=== PATIENT | male | born 1960 | race Caucasian/White ===

== ENCOUNTER 2017-07-20 16:39 | Emergency (ER) | payer MEDICAID ==
[~2017-07-20] VITALS: Ht 172.7 cm; Wt 141.4 kg
[2017-07-20 16:39] VITALS: BP 155/89
== END 2017-07-20 16:50 | disposition left against medical advice (07) ==
LOC: M ED 16:39
DX: S99.919A Unspecified injury of unspecified ankle, initial encounter (principal); X58.XXXA Exposure to other specified factors, initial encounter; Y92.9 Unspecified place or not applicable; Y93.9 Activity, unspecified; Y99.9 Unspecified external cause status; Z53.21 Procedure and treatment not carried out due to patient leaving prior to being seen by health care provider

== ENCOUNTER → 2017-10-12 | Outpatient (CLI) | payer MEDICAID ==
[2017-10-12 14:54] LABS: HEMOGLOBIN 15.6 g/dl (14.0-18.0)
== END ==
LOC: M CARPUL 13:52
DX: J43.9 Emphysema, unspecified (principal)
CPT/HCPCS: 94060

== ENCOUNTER → 2018-01-26 | Outpatient (CLI) | payer MEDICAID ==
[2018-01-26 15:25] LABS: BASO # 0.1 10^3/uL (0.0-0.2); BASO % 0.7 % (0.0-1.0); EOS # 0.2 10^3/uL (0.0-0.50); EOS % 2.4 % (0.0-3.0); HEMATOCRIT 49.8 % (42.0-52.0); HEMOGLOBIN 16.3 g/dl (13.5-17.5); IMMATURE GRANULOCYTE # 0.1 10^3/uL (0-0); IMMATURE GRANULOCYTE % 0.7 % (0-3.0); LYMPH % 27.1 % (24.0-44.0); MEAN CORPUSCULAR HEMOGLOBIN 30.3 pg (27.0-33.0); MEAN CORPUSCULAR HGB CONC 32.7 g/dl (32.0-36.5); MEAN CORPUSCULAR VOLUME 92.6 fl (80.0-96.0); MONO # 0.4 10^3/uL (0.0-0.8); MONO % 6.1 % (0.0-5.0); NEUTROPHILS # 4.6 10^3/uL (1.8-7.7); PLATELET COUNT, AUTOMATED 283 10^3/uL (150-450); RED BLOOD COUNT 5.38 10^6/uL (4.30-6.10); RED CELL DISTRIBUTION WIDTH 15.4 % (11.5-14.5); WHITE BLOOD COUNT 7.2 10^3/uL (4.0-10.0)
[2018-01-26 15:30] LABS: APPEARANCE, URINE CLEAR (CLEAR); BACTERIA, URINE AUTO NEGATIVE (NEGATIVE); BILIRUBIN, URINE AUTO NEGATIVE (NEGATIVE); BLOOD, URINE BLOOD NEGATIVE (NEGATIVE); COLOR, URINE STRAW (YELLOW); GLUCOSE, URINE (UA) AUTO NEGATIVE (NEGATIVE); KETONE, URINE AUTO NEGATIVE (NEGATIVE); LEUKOCYTE ESTERASE, URINE AUTO 2+ (NEGATIVE); MUCUS, URINE SMALL (NEGATIVE); NITRITE, URINE AUTO NEGATIVE (NEGATIVE); PROTEIN, URINE AUTO NEGATIVE (NEGATIVE); RBC, URINE AUTO 1 /HPF (0-3); SPECIFIC GRAVITY URINE AUTO 1.004 (1.002-1.035); SQUAMOUS EPITHELIAL CELL UR AU 0 /HPF (0-6); UROBILINOGEN, URINE AUTO 0.2 mg/dL (0.0-2.0); WBC, URINE AUTO 7 /HPF (0-3)
[2018-01-26 16:04] LABS: ESTIMATED AVERAGE GLUCOSE 128 MG/DL (60-110); HEMOGLOBIN A1c 6.1 %
[2018-01-26 16:05] LABS: TOTAL 25(OH) VITAMIN D 14.4 NG/ML (30.0-100.0)
[2018-01-26 16:08] LABS: ALBUMIN 3.4 GM/DL (3.2-5.2); ALBUMIN/GLOBULIN RATIO 0.94 (1.00-1.93); ALKALINE PHOSPHATASE 97 U/L (45-117); ALT/SGPT 21 U/L (12-78); ANION GAP 6 MEQ/L (8-16); AST/SGOT 15 U/L (7-37); BILIRUBIN,TOTAL 0.4 MG/DL (0.2-1.0); BLOOD UREA NITROGEN 20 MG/DL (7-18); CALCIUM LEVEL 9.1 MG/DL (8.5-10.1); CARBON DIOXIDE LEVEL 33 MEQ/L (21-32); CHLORIDE LEVEL 98 MEQ/L (98-107); CHOLESTEROL LEVEL 146 MG/DL (<200); CHOLESTEROL RISK RATIO 2.607 (<5); CREATININE FOR GFR 1.24 MG/DL (0.70-1.30); FREE T4 1.12 NG/DL (0.76-1.46); GLOMERULAR FILTRATION RATE > 60.0 (>56); GLUCOSE, FASTING 101 MG/DL (70-100); HDL CHOLESTEROL 56 MG/DL (>40); LDL CHOLESTEROL 48.6 MG/DL (<100); NON-HDL-C 90 MG/DL; POTASSIUM SERUM 4.8 MEQ/L (3.5-5.1); SODIUM LEVEL 137 MEQ/L (136-145); TRIGLYCERIDES LEVEL 207 MG/DL (<150)
== END ==
LOC: M LAB 13:56
DX: Z71.2 Person consulting for explanation of examination or test findings (principal)
CPT/HCPCS: 84443

== ENCOUNTER 2018-06-27 21:32 | Emergency (ER) | payer MEDICAID ==
[2018-06-27 23:08] LABS: BASO % 0.3 % (0.0-1.0); EOS # 0.2 10^3/uL (0.0-0.50); EOS % 1.6 % (0.0-3.0); HEMATOCRIT 47.6 % (42.0-52.0); HEMOGLOBIN 15.5 g/dl (13.5-17.5); IMMATURE GRANULOCYTE % 0.7 % (0-3.0); LYMPH # 2.3 10^3/uL (1.5-4.5); LYMPH % 23.2 % (24.0-44.0); MEAN CORPUSCULAR HEMOGLOBIN 30.9 pg (27.0-33.0); MEAN CORPUSCULAR HGB CONC 32.6 g/dl (32.0-36.5); MEAN CORPUSCULAR VOLUME 94.8 fl (80.0-96.0); MONO # 0.9 10^3/uL (0.0-0.8); MONO % 8.4 % (0.0-5.0); NEUTROPHILS # 6.6 10^3/uL (1.8-7.7); NEUTROPHILS % 65.8 % (36.0-66.0); PLATELET COUNT, AUTOMATED 213 10^3/uL (150-450); RED BLOOD COUNT 5.02 10^6/uL (4.30-6.10); RED CELL DISTRIBUTION WIDTH 14.7 % (11.5-14.5); WHITE BLOOD COUNT 10.1 10^3/uL (4.0-10.0)
[2018-06-27 23:11] LABS: INR 0.94; PROTHROMBIN TIME 12.6 SECONDS (12.1-14.4)
[2018-06-27] MEDS: NS 1,000 ML IV (23:11)
[2018-06-27 23:12] LABS: PARTIAL THROMBOPLASTIN TIME 33.1 SECONDS (25.4-37.6)
[2018-06-27] MEDS: ONDANSETRON 4MG/2ML VIAL (J2405) IV (23:12)
[2018-06-27] MEDS: MORPHINE 4 MG/ML 1ML VIAL/SYRINGE (J2270) IV (23:13)
[2018-06-27 23:27] LABS: ALBUMIN/GLOBULIN RATIO 0.75 (1.00-1.93); ALKALINE PHOSPHATASE 89 U/L (45-117); ALT/SGPT 22 U/L (12-78); ANION GAP 5 MEQ/L (8-16); AST/SGOT 21 U/L (7-37); BILIRUBIN,DIRECT < 0.1 MG/DL (0.0-0.2); BILIRUBIN,TOTAL 0.6 MG/DL (0.2-1.0); BLOOD UREA NITROGEN 10 MG/DL (7-18); CALCIUM LEVEL 9.2 MG/DL (8.5-10.1); CARBON DIOXIDE LEVEL 36 MEQ/L (21-32); CHLORIDE LEVEL 100 MEQ/L (98-107); CREATININE FOR GFR 1.08 MG/DL (0.70-1.30); GLOMERULAR FILTRATION RATE > 60.0 (>56); GLUCOSE, FASTING 99 MG/DL (70-100); LIPASE 64 U/L (73-393); POTASSIUM SERUM 4.1 MEQ/L (3.5-5.1); SODIUM LEVEL 141 MEQ/L (136-145)
[2018-06-27 23:42] LABS: LACTIC ACID SEPSIS PROTOCOL 0.8 MMOL/L (0.4-2.0)
[2018-06-28] MEDS: GASTROGRAFIN SOLUTION 30ML PO ×2 (00:05→00:35)
[2018-06-28] MEDS ORDERED: ISOVUE-370 76% 100ML VIAL (Q9967) As Ordered (01:20)
== END 2018-06-28 07:55 | disposition home or self-care (01) ==
LOC: M ED 06-28 07:55
DX: K80.01 Calculus of gallbladder with acute cholecystitis with obstruction (principal); E66.9 Obesity, unspecified; J44.9 Chronic obstructive pulmonary disease, unspecified; G89.29 Other chronic pain; M54.9 Dorsalgia, unspecified; I10 Essential (primary) hypertension; Z72.0 Tobacco use; Z79.899 Other long term (current) drug therapy; Z88.0 Allergy status to penicillin
CPT/HCPCS: J2270

== ENCOUNTER → 2018-09-13 | Outpatient (CLI) | payer MEDICAID ==
[~2018-09-13] MED LIST: ALEV220C2 PO; ALEV220T26 PO; BREO1INH PO; CIPR-249 PO; FLAG500T PO; FURO20TA2 PO; GABA-1171 PO; GABA-845 PO; INCR1INH INH; IPRA0.00 INH; LISI-538 PO; METO1TAB7 PO; NICO21DI31 TD; NORCOTAB PO; PROAAER10 INH
--- NOTE | 2018-09-13 16:32 | REP ---
Low-dose lung cancer screening CT study of the chest without contrast: History: Nicotine dependency. Lung cancer screening. Comparison chest CT study is from July 16, 2008. CT findings: The lung valdez are free of infiltrate, atelectasis, nodule, or mass. There is some vascular calcification noted. Impression: Lung RADS category one negative findings. Repeat screening exam suggested in 1 year. Electronically Signed by Narendra Parada MD 09/13/2018 04:22 P
== END ==
LOC: M RAD 14:42
PROVIDERS: ATTEND Physician Assistant
DX: Z12.2 Encounter for screening for malignant neoplasm of respiratory organs (principal); F17.218 Nicotine dependence, cigarettes, with other nicotine-induced disorders

== ENCOUNTER → 2018-09-21 | Outpatient (CLI) | payer MEDICAID ==
[2018-09-21 11:03] LABS: HEMATOCRIT 48.3 % (42.0-52.0); HEMOGLOBIN 15.5 g/dl (13.5-17.5); MEAN CORPUSCULAR HGB CONC 32.1 g/dl (32.0-36.5); MEAN CORPUSCULAR VOLUME 99.8 fl (80.0-96.0); PLATELET COUNT, AUTOMATED 226 10^3/uL (150-450); RED BLOOD COUNT 4.84 10^6/uL (4.30-6.10); WHITE BLOOD COUNT 8.3 10^3/uL (4.0-10.0)
[2018-09-21 11:39] LABS: ALBUMIN 3.1 GM/DL (3.2-5.2); ALT/SGPT 24 U/L (12-78); BILIRUBIN,TOTAL 0.2 MG/DL (0.2-1.0); BLOOD UREA NITROGEN 22 MG/DL (7-18); CALCIUM LEVEL 8.9 MG/DL (8.5-10.1); CARBON DIOXIDE LEVEL 34 MEQ/L (21-32); CHLORIDE LEVEL 102 MEQ/L (98-107); CHOLESTEROL LEVEL 179 MG/DL (<200); CHOLESTEROL RISK RATIO 3.442 (<5); CORTISOL AM 9.9 UG/DL (4.3-22.4); CREATININE FOR GFR 1.01 MG/DL (0.70-1.30); GLOMERULAR FILTRATION RATE > 60.0 (>56); GLUCOSE, FASTING 108 MG/DL (70-100); HDL CHOLESTEROL 52 MG/DL (>40); LDL CHOLESTEROL 91 MG/DL (<100); NON-HDL-C 127 MG/DL; NT-PRO BNP 150 PG/ML (<125); POTASSIUM SERUM 5.4 MEQ/L (3.5-5.1); SODIUM LEVEL 142 MEQ/L (136-145); TOTAL PROTEIN 6.6 GM/DL (6.4-8.2); TRIGLYCERIDES LEVEL 179 MG/DL (<150)
== END ==
LOC: M LAB 10:05
PROVIDERS: ATTEND Internal Medicine
DX: R63.5 Abnormal weight gain (principal)

== ENCOUNTER → 2018-10-11 | Outpatient (CLI) | payer MEDICAID ==
[2018-10-11 13:53] LABS: BLOOD UREA NITROGEN 21 MG/DL (7-18); CALCIUM LEVEL 9.1 MG/DL (8.5-10.1); CARBON DIOXIDE LEVEL 34 MEQ/L (21-32); CHLORIDE LEVEL 99 MEQ/L (98-107); CREATININE FOR GFR 1.15 MG/DL (0.70-1.30); GLOMERULAR FILTRATION RATE > 60.0 (>56); GLUCOSE, FASTING 117 MG/DL (70-100); POTASSIUM SERUM 4.8 MEQ/L (3.5-5.1); SODIUM LEVEL 137 MEQ/L (136-145)
== END ==
LOC: M LAB 12:45
PROVIDERS: ATTEND Internal Medicine
DX: E87.5 Hyperkalemia (principal); I10 Essential (primary) hypertension

== ENCOUNTER → 2018-10-12 | Outpatient (CLI) | payer MEDICAID ==
[~2018-10-12] MED LIST changes: +GASTROGRAFIN SOLUTION 30ML (Q9963) As Ordered ONE; +ISOVUE-370 76% 100ML VIAL (Q9967) As Ordered ONE
--- NOTE | 2018-10-12 18:30 | REP ---
CT ABDOMEN AND PELVIS WITH IV AND ORAL CONTRAST: 10/12/2018. Clinical history: Abnormal weight gain. Technique: Gastrografin 10 ml in 290 ml flavored water for two doses per our bowel contrast protocol and bolus of 100 ml Isovue 370, scanning through the abdomen pelvis with both coronal and sagittal reconstructions. Comparison: 06/28/2018 CT and gallbladder ultrasound. Findings: CT abdomen: Lung bases show minor dependent atelectatic changes in the inferior segment of the lingula and medial segment of the right middle lobe. They are otherwise clear. Heart not enlarged. No pericardial thickening or effusion. There is no gross hepatomegaly although the left hepatic lobe is mildly enlarged. There is no splenomegaly or focal splenic lesion. I see no biliary dilatation or ascites. No cyst or solid hepatic mass. The gallbladder again shows a 3 mm stone in the region of the neck, unchanged. Pancreas without mass or ductal dilatation. No hiatal hernia. Stomach not abnormally distended. Abdominal portion of the colon is seen without colitis, diverticulitis, stricture or mass. The small bowel loops contrast and fluid-filled but not abnormally dilated. They show no air-fluid levels, wall thickening or inflammatory changes adjacent. The aorta has atherosclerotic calcifications without aneurysm. There is no periaortic or retroperitoneal pathologic sized lymphadenopathy. There is a stable solid lesion in the left adrenal gland up to 2.8 cm and unchanged dating back to a CT from 05/25/2012. This would be consistent with a benign finding most likely a benign adrenal adenoma. Exophytic cyst lower pole right kidney, unchanged. There are a few other cortical cysts evident. I see no stone, hydronephrosis, solid mass or perinephric fluid. No hydroureter or ureteral stone on either side. Bladder without wall thickening, mass or stone. Bones unchanged with degenerative disc changes throughout the thoracic and lumbar endplates and no compression deformity or destructive lesion. Facets with degenerative changes L5, S1. No spondylolysis. Visualized lower ribs grossly intact. Diastases of the rectus muscles again seen. No umbilical hernia. There is abundant and diffuse mesenteric and retroperitoneal fat, similar to previous studies, perhaps increased deposition since the prior exam. CT pelvis: The bony sacrum, pelvis, hips and iliac vessels with minor degenerative changes and no fracture or destructive lesion. Distal ureters without dilatation or stone. Abdominal and pelvic portions of colon without signs of colitis or diverticulitis, no stricture or mass. Small bowel loops deep pelvis unremarkable. Appendix and cecum were unremarkable as was the ileocecal valve. There is no ventral or inguinal hernia in the pelvis. No pelvic free fluid. Impression: 1. Some mild enlargement of the left hepatic lobe is noted, but no focal hepatic mass, biliary dilatation or adjacent ascites. No splenomegaly 2. Nearly 3 cm stone appears in the neck of the gallbladder, unchanged. 3. Degenerative disc changes with endplate spurs and some facet arthropathy lower lumbar spine. No acute bony finding. 4. Left adrenal 2.8 cm nodule unchanged dating back to 2011, a stable benign finding. 5. Tiny cysts in the kidneys without hydronephrosis, mass or stone. There is no other significant or acute finding. The small bowel loops are without dilatation. There is no bowel herniation in the ventral abdominal wall or inguinal region. There is some diastasis of the rectus muscles as before. 6. Extensive deposition of mesenteric and retroperitoneal fat appears to have increased. Electronically Signed by Castro Salas MD 10/13/2018 12:34 P
== END ==
LOC: M RAD 14:59
PROVIDERS: ATTEND Internal Medicine
DX: R63.5 Abnormal weight gain (principal)
CPT/HCPCS: 74177; Q9963; Q9967

== ENCOUNTER 2018-10-20 11:09 | Inpatient (IN) | payer MEDICAID ==
[~2018-10-20] VITALS: Ht 172.7 cm; Wt 154.6 kg
[2018-10-20] MEDS: MULTIVITAMINS/MINERALS THERAP 1 TAB PO SCH (09:00)
[2018-10-20] MEDS: FUROSEMIDE 20 MG TAB PO SCH (09:00)
[2018-10-20] MEDS: amLODIPine 10 MG TAB PO SCH (09:00)
[2018-10-20] MEDS: FOLIC ACID 1 MG TAB PO SCH (09:00)
[~2018-10-20 11:09] MED LIST changes: -GASTROGRAFIN SOLUTION 30ML (Q9963) As Ordered ONE; -ISOVUE-370 76% 100ML VIAL (Q9967) As Ordered ONE
--- NOTE | 2018-10-20 12:27 | REP ---
RIGHT LOWER EXTREMITY DOPPLER VENOUS ULTRASOUND: 10/20/2018. Comparison: None. Clinical history: Swelling and pain of the right lower extremity, status post a fall. Technique: The deep venous system of the right lower extremity is evaluated with sheets scale imaging, compression ultrasound, color imaging and duplex Doppler interrogation. Examination from the groin through the popliteal fossa into the proximal calf. Findings: There is full compressibility from the common femoral vein in the inguinal region through the popliteal vein. Color imaging confirms patency throughout the course of the deep venous system. There is respiratory variation and augmented flow at all levels. There is a complex Fishman's cyst in the popliteal fossa is 6.2 x 2.6 x 3.1 cm. Impression: 1. No Doppler venous ultrasound evidence of DVT in the right lower extremity. 10/20/2018. 2. Complex Fishman's cyst popliteal fossa, 6.2 x 3.1 x 2.6 cm. Electronically Signed by Castro Salas MD 10/20/2018 12:19 P
[2018-10-20 12:49] LABS: BASO % 0.5 % (0.0-1.0); EOS # 0.2 10^3/uL (0.0-0.50); EOS % 2.2 % (0.0-3.0); HEMOGLOBIN 15.9 g/dl (13.5-17.5); LYMPH # 1.9 10^3/uL (1.5-4.5); LYMPH % 23.6 % (24.0-44.0); MEAN CORPUSCULAR HEMOGLOBIN 31.6 pg (27.0-33.0); MEAN CORPUSCULAR HGB CONC 31.8 g/dl (32.0-36.5); MEAN CORPUSCULAR VOLUME 99.4 fl (80.0-96.0); MONO # 0.8 10^3/uL (0.0-0.8); MONO % 9.7 % (0.0-5.0); PLATELET COUNT, AUTOMATED 221 10^3/uL (150-450); RED BLOOD COUNT 5.03 10^6/uL (4.30-6.10); WHITE BLOOD COUNT 8.1 10^3/uL (4.0-10.0)
[2018-10-20 13:01] LABS: INR 0.88
[2018-10-20 13:04] LABS: D-DIMER QUANT 948.07 ng/ml (<500)
[2018-10-20 13:20] LABS: ERYTHROCYTE SEDIMENTATION RATE 3 mm/hr (0-20)
[2018-10-20 13:26] LABS: ALBUMIN 3.3 GM/DL (3.2-5.2); ALT/SGPT 27 U/L (12-78); BILIRUBIN,DIRECT 0.1 MG/DL (0.0-0.2); BILIRUBIN,TOTAL 0.4 MG/DL (0.2-1.0); BLOOD UREA NITROGEN 21 MG/DL (7-18); C REACTIVE PROTEIN QUANTITATIV 4.02 MG/DL (0.00-0.30); CALCIUM LEVEL 8.9 MG/DL (8.5-10.1); CARBON DIOXIDE LEVEL 33 MEQ/L (21-32); CHLORIDE LEVEL 99 MEQ/L (98-107); CREATININE FOR GFR 1.08 MG/DL (0.70-1.30); ETHYL ALCOHOL (ETHANOL) < 0.003 % (0.000-0.010); GLOMERULAR FILTRATION RATE > 60.0 (>56); GLUCOSE, FASTING 95 MG/DL (70-100); NT-PRO BNP 140 PG/ML (<125); POTASSIUM SERUM 4.7 MEQ/L (3.5-5.1); SODIUM LEVEL 136 MEQ/L (136-145); TOTAL PROTEIN 7.2 GM/DL (6.4-8.2); TROPONIN I < 0.02 NG/ML (< 0.10)
[2018-10-20 13:34] LABS: AMPHETAMINES LEVEL URINE NEGATIVE (NEGATIVE); BARBITURATES URINE NEGATIVE (NEGATIVE); BENZODIAZEPINES URINE NEGATIVE (NEGATIVE); CANNABINOIDS URINE NEGATIVE (NEGATIVE); COCAINE METABOLITE URINE NEGATIVE (NEGATIVE); METHADONE URINE NEGATIVE (NEGATIVE); OPIATES URINE NEGATIVE (NEGATIVE); PHENCYCLIDINE URINE NEGATIVE (NEGATIVE)
--- NOTE | 2018-10-20 14:01 | REP ---
CHEST PA AND LATERAL: 10/20/2018. COMPARISON: Lung windows from CT abdomen 10/12/2018, PA chest 06/27/2018, chest x-ray 08/19/2012. CLINICAL HISTORY: Dyspnea. FINDINGS: The two views show the lung valdez well inflated. Chest wall tissues superimposed over the lower lung zones, somewhat limiting frontal evaluation. There is no dense consolidation, pleural effusion, lateral pleural thickening, or apical scarring. No pneumothorax. No parenchymal mass or nodule. No visible hiatal hernia. The aorta and airway are intact. There is no widening of the mediastinum. There is no vascular redistribution or pulmonary edema. IMPRESSION: 1. No gross cardiomegaly, edema, effusion, or definite infiltrate. Airway, mediastinal contours, and aorta unremarkable. Electronically Signed by Castro Salas MD 10/20/2018 07:51 P
[2018-10-20] MEDS ORDERED: ISOVUE-370 76% 100ML VIAL (Q9967) As Ordered ONE (14:05)
[2018-10-20] MEDS ORDERED: METOPROLOL SUCC (TopROL XL) 50MG **XL** TAB PO ONE (15:00)
--- NOTE | 2018-10-20 15:28 | REP ---
CT ANGIOGRAM CHEST. 10/20/2018. Comparison: Low-dose lung screening CT 09/13/2018. Chest x-ray 10/20/2018, chest CT 07/16/2008. CLINICAL HISTORY: Dyspnea, evaluate for elevated D-dimer. Rule out pulmonary embolism. TECHNIQUE: 75 mL bolus of Isovue [address] angiogram protocol with both coronal and sagittal thick slab MIP and standard reformats. FINDINGS: Some minor curvilinear atelectatic change at the anterior left and right lung base along the heart borders. No pleural effusion, pleural-based mass, calcified pleural plaque, or pulmonary nodule. Some respiratory motion blur limits evaluation of the lung valdez. Heart size upper limits of normal, there is no pericardial thickening or effusion. The aorta is without aneurysm or dissection. The main, right, and left pulmonary arteries and the mediastinum are without filling defects. Due to some respiratory motion, the lobar arteries are less well depicted and the segmental and subsegmental arteries are largely obscured; however, there is a suggested opacity in the left lower lobe pulmonary artery, several consecutive images from 105 through 111 on series 401. Other vessels cannot be commented on with certainty. No axillary or supraclavicular mass. No pathologic-sized mediastinal adenopathy. Bone windows show sternum, manubrium, medial clavicles, small portions of the humeral heads, the scapulae, ribs, and spine without fracture, compression deformity, or destructive lesions. The upper abdomen shows prominent left hepatic lobe with no hepatomegaly, splenomegaly, or focal lesion. No ascites. Gallbladder shows a stone in its neck and dependent portion 2.8 cm. There is a 2.6 cm left adrenal nodule. This was 2.4 cm on 07/16/2008. Similar appearance overall and the right adrenal gland normal. No other findings. IMPRESSION: 1. Respiratory motion limits evaluation, but there appears to be a filling defect in the left lower lobe pulmonary artery over several contiguous segments consistent with thrombus from acute pulmonary embolism. See images 105-111 series 401 on that left side. 2. No effusion, parenchymal mass, or definite acute infiltrate. There is some minor basilar atelectatic change in the anterior lung bases, right and left sides of the heart. 3. A 2.8 cm gallstone in the gallbladder and a fairly stable left adrenal nodule that has only increased 4 mm in size over the 10-year interval between CTs. It is consistent with a benign adrenal adenoma. Electronically Signed by Castro Salas MD 10/20/2018 07:55 P
[2018-10-20] MEDS ORDERED: MORPHINE 4 MG/ML 1ML VIAL/SYRINGE (J2270) IV PRN (16:45)
[2018-10-20] MEDS ORDERED: GLUCOSE 4 GM CHEW TABLET PO PRN (17:00)
[2018-10-20] MEDS ORDERED: GLUCAGON FOR INJ 1 MG VIAL (J1610) SC PRN (17:00)
[2018-10-20] MEDS ORDERED: LORazepam 2 MG TAB PO PRN (17:00)
[2018-10-20] MEDS ORDERED: DEXTROSE 50% 50 ML SYRINGE IV PRN (17:00)
[2018-10-20] MEDS: HumaLOG INSULIN (NovoLOG) PER UNIT SC SCH (17:30)
[2018-10-20] MEDS ORDERED: CLINDAMYCIN 600 MG in APPROPRIATE DILUENT 1 EA IV SCH (18:00)
[2018-10-20] MEDS ORDERED: AMLO10TA5 PO (18:21)
--- NOTE | 2018-10-20 18:23 | HPE ---
DATE OF ADMISSION: 10/20/2018 A 58-year-old male with a past medical history of morbid obesity, hypertension, diabetes, chronic alcoholism, chronic active tobacco abuser, presents to the emergency room due to pain and swelling of his lower extremities. The patient apparently fell approximately a week ago and then his leg started becoming both swollen and erythematous. His primary medical doctor gave him ciprofloxacin for cellulitis; however, the pain persisted. He denied any shortness of breath or pleurisy. In the emergency room (ER), he was found to have an elevated D-dimer and a CT angio was done, which found that the patient had left lower lobe pulmonary embolism (PE). The patient was started on Lovenox 1 mg/kg subcu every 12 hours, and he will be admitted for further management. PAST MEDICAL HISTORY: Morbid obesity. Hypertension. Chronic alcoholism. Chronic tobacco abuser. Diabetes. Diabetic neuropathy. Non-oxygen dependent chronic obstructive pulmonary disease (COPD). ALLERGIES: He has drug allergies to PENICILLIN. FAMILY HISTORY: Noncontributory. SOCIAL HISTORY: The patient smokes a pack and a half a day for many years, and he drinks a case of beer. Last beer he drank was apparently this morning - he had a can of beer. Denies illicit drugs. MEDICATIONS: He takes at home are as follows: - Tarkio 5/325 one tablet orally every 6 hours as needed - albuterol inhaler as needed - ciprofloxacin 500 mg orally twice daily - Lasix 30 mg orally daily - gabapentin 200 mg orally twice daily - lisinopril 20 mg orally twice daily - metoprolol 50 mg orally twice daily - metronidazole 500 mg orally every 8 hours - nicotine patch 21 mg transdermal daily - Breo Ellipta one puff inhaled daily - Incruse Ellipta one puff inhaled daily - naproxen 220 mg orally twice daily as needed REVIEW OF SYSTEMS: Negative all ten major systems except what is mentioned in the history of the present illness. Vital Signs: Blood pressure 174/90, heart rate is 90, regular, respiratory rate 20, temperature 96.2, oxygen saturation 92% on room air. Head is atraumatic, normocephalic. Neck supple. No jugular venous distention (JVD). Lungs are clear to auscultation. S1, S2 audible, No murmurs appreciated. Abdomen: Soft, positive bowel sounds. There is +2 pedal edema bilaterally. Skin Examination: Erythematous rash noted up to the mid tibial region in both legs, warm to touch but no skin break. Neurologic Examination: Patient awake, alert, oriented times three. LABORATORY: D-dimer was 948, INR 0.88, WBC 8.1, hemoglobin is 15.9, hematocrit 50, platelets are 221,000. ESR is 3. Sodium 136, potassium 4.7, chloride 99, CO2 33, BUN 21, creatinine 1.08, glucose is 95, troponin is less than 0.02. Toxicology screen was all negative, including alcohol. IMPRESSION: 1. Acute pulmonary embolism. 2. Cellulitis of both lower extremities. PLAN: The patient is to be admitted to the medical-surgical with telemetry. Will start the patient on Lovenox 1 mg/kg subcu every 12 hours. Will monitor his telemetry overnight. I am going to start him on IV clindamycin for his cellulitis, and I will continue all of his preadmission medications and continue his care on the medical-surgical floor. Also, I am going to start the patient on Clinical [place] Withdrawal Assessment (CIWA) protocol in case he goes into withdrawals.
[2018-10-20] MEDS ORDERED: BACT800T5 PO (18:24)
[2018-10-20] MEDS ORDERED: LIDO4CRE4 TOP (18:24)
[2018-10-20] MEDS ORDERED: MUPI2OI TOP (18:24)
[2018-10-20] MEDS ORDERED: IPRATROPIUM 0.5MG/ALBUTEROL 2.5MG INH SOL UD 3ML (DUONEB)(J7620) INH PRN (18:45)
[2018-10-20] MEDS ORDERED: ALBUTEROL 90 MCG/ACT 8GM HFA INHALER INH PRN (18:45)
[2018-10-20] MEDS ORDERED: NAPROXEN 250 MG TAB PO PRN (18:45)
[2018-10-20 21:00] VITALS: BP 148/78
[2018-10-20] MEDS: MUPIROCIN 2% OINT 22 GM TUBE TOP SCH (21:00)
[2018-10-20] MEDS: GABAPENTIN 100 MG CAP PO SCH (21:39)
[2018-10-20] MEDS: THIAMINE 100 MG TAB PO SCH (21:40)
[2018-10-20] MEDS: CLINDAMYCIN 600 MG in APPROPRIATE DILUENT 1 EA IV SCH (21:40)
[2018-10-20] MEDS: LACTOBACILLUS ACIDOPHILUS CAP (BACID) PO SCH (21:40)
[2018-10-20] MEDS: METOPROLOL SUCC (TopROL XL) 50MG **XL** TAB PO SCH (21:41)
[2018-10-20] MEDS: ENOXAPARIN 100MG/1ML SYRINGE (J1650) SC SCH (21:42)
[2018-10-20 22:00] VITALS: BP 148/78
[2018-10-21] MEDS: CLINDAMYCIN 600 MG in APPROPRIATE DILUENT 1 EA IV SCH ×4 (02:00→20:54)
[2018-10-21 06:00] VITALS: BP_SYST 148; BP_DIAS 80; BP_DIAS 83
[2018-10-21 06:18] LABS: BASO % 0.6 % (0.0-1.0); EOS # 0.2 10^3/uL (0.0-0.50); EOS % 3.2 % (0.0-3.0); HEMATOCRIT 47.3 % (42.0-52.0); HEMOGLOBIN 14.6 g/dl (13.5-17.5); LYMPH # 1.8 10^3/uL (1.5-4.5); LYMPH % 25.5 % (24.0-44.0); MEAN CORPUSCULAR HEMOGLOBIN 31.2 pg (27.0-33.0); MEAN CORPUSCULAR HGB CONC 30.9 g/dl (32.0-36.5); MEAN CORPUSCULAR VOLUME 101.1 fl (80.0-96.0); MONO # 0.7 10^3/uL (0.0-0.8); MONO % 9.9 % (0.0-5.0); NEUTROPHILS # 4.1 10^3/uL (1.8-7.7); NEUTROPHILS % 59.4 % (36.0-66.0); PLATELET COUNT, AUTOMATED 221 10^3/uL (150-450); RED BLOOD COUNT 4.68 10^6/uL (4.30-6.10); WHITE BLOOD COUNT 6.9 10^3/uL (4.0-10.0)
[2018-10-21 06:43] LABS: BLOOD UREA NITROGEN 17 MG/DL (7-18); CALCIUM LEVEL 9.1 MG/DL (8.5-10.1); CARBON DIOXIDE LEVEL 34 MEQ/L (21-32); CHLORIDE LEVEL 103 MEQ/L (98-107); CREATININE FOR GFR 1.03 MG/DL (0.70-1.30); GLOMERULAR FILTRATION RATE > 60.0 (>56); GLUCOSE, FASTING 89 MG/DL (70-100); SODIUM LEVEL 140 MEQ/L (136-145)
[2018-10-21] MEDS: HumaLOG INSULIN (NovoLOG) PER UNIT SC SCH ×3 (07:30→17:59)
[2018-10-21] MEDS: ENOXAPARIN 100MG/1ML SYRINGE (J1650) SC SCH ×2 (08:55→20:56)
[2018-10-21] MEDS: FOLIC ACID 1 MG TAB PO SCH (08:55)
[2018-10-21] MEDS: MULTIVITAMINS/MINERALS THERAP 1 TAB PO SCH (08:56)
[2018-10-21] MEDS: GABAPENTIN 100 MG CAP PO SCH ×2 (08:56→20:54)
[2018-10-21] MEDS: THIAMINE 100 MG TAB PO SCH ×2 (08:56→20:54)
[2018-10-21] MEDS: LACTOBACILLUS ACIDOPHILUS CAP (BACID) PO SCH ×3 (08:56→18:01)
[2018-10-21] MEDS: FUROSEMIDE 20 MG TAB PO SCH (08:56)
[2018-10-21] MEDS: METOPROLOL SUCC (TopROL XL) 50MG **XL** TAB PO SCH ×2 (08:57→20:54)
[2018-10-21] MEDS: amLODIPine 10 MG TAB PO SCH (08:57)
[2018-10-21] MEDS: MUPIROCIN 2% OINT 22 GM TUBE TOP SCH ×2 (09:00→20:56)
[2018-10-21 14:00] VITALS: BP_SYST 134; BP_SYST 140; BP_DIAS 64; BP_DIAS 68
--- NOTE | 2018-10-21 16:26 | ECGEPIP ---
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
--- NOTE | 2018-10-21 16:27 | IPN ---
DATE: 10/21/2018 SUBJECTIVE: Patient is seen and examined in the room with his cousin who also lives with the patient. Since the wintertime, patient has not been having a lot of exercise, most of the time he would just stay in the house, moving between the bed and chair. Patient continues to smoke more than one pack daily. Patient is also noted to have a history of increased lower extremity swelling and erythema. Patient is also noted to have a fall approximately a week ago where he landed on the lower extremities. He thought he started having lower extremity redness due to the fall. There is no lower extremity pain but he is noted to have swelling and erythema. Denied any fever or chills. OBJECTIVE: VITAL SIGNS: Temperature 97.8, pulse 83, respiratory rate 20, blood pressure 148/80, pulse oximetry 95% with 2 liters nasal cannula. GENERAL: Patient is alert and awake. HEENT: Normocephalic, atraumatic. Extraocular muscles grossly intact. CARDIOVASCULAR: Positive S1, S2, regular rate. LUNGS: Mild crackles, no wheezes. ABDOMEN: Soft, nontender, bowel sounds present. EXTREMITIES: Positive pitting edema bilaterally. Patient also has erythematous skin changes between the knee and the ankle bilaterally. No tenderness to palpation. LABORATORY DATA: WBC 6.9, hemoglobin 14.6, hematocrit 47.3, platelet count 221, sodium 140, potassium 5, chloride 103, carbon dioxide 34, BUN 17, creatinine 1.03, GFR greater than 60, fasting glucose 89, calcium 9.1. ASSESSMENT AND PLAN: 1. Acute pulmonary embolus. Based on the history, patient does have many risk factors. Patient is currently on Lovenox. 2. Lower extremity swelling and erythema. Differential could include venous stasis changes versus bilateral lower extremity cellulitis. Patient's chart is reviewed. Patient could not recall any history of congestive heart failure. No echocardiogram was performed. Patient only has very mild elevation of BNP. Patient is started on empiric antibiotics. 3. Tobacco abuse. On nicotine supplement as needed. 4. Chronic obstructive pulmonary disease (COPD). No exacerbation at this moment. 5. Deep venous thrombosis (DVT) prophylaxis. Currently patient is on Lovenox for pulmonary embolus (PE) treatment. [facility]
[2018-10-21] MEDS: NICOTINE 21MG/24HR 1 EA TRANSDERMAL TD SCH (21:00)
[2018-10-21] MEDS ORDERED: NICOTINE 21MG/24HR 1 EA TRANSDERMAL TD SCH (21:00)
[2018-10-21 22:00] VITALS: BP 138/66
[2018-10-22] MEDS: CLINDAMYCIN 600 MG in APPROPRIATE DILUENT 1 EA IV SCH ×4 (01:18→21:02)
[2018-10-22 06:00] VITALS: BP 145/83
[2018-10-22 06:29] LABS: HEMATOCRIT 45.7 % (42.0-52.0); HEMOGLOBIN 14.2 g/dl (13.5-17.5); MEAN CORPUSCULAR HEMOGLOBIN 30.9 pg (27.0-33.0); MEAN CORPUSCULAR HGB CONC 31.1 g/dl (32.0-36.5); MEAN CORPUSCULAR VOLUME 99.6 fl (80.0-96.0); PLATELET COUNT, AUTOMATED 218 10^3/uL (150-450); RED BLOOD COUNT 4.59 10^6/uL (4.30-6.10); WHITE BLOOD COUNT 5.5 10^3/uL (4.0-10.0)
[2018-10-22 06:54] LABS: BLOOD UREA NITROGEN 17 MG/DL (7-18); CALCIUM LEVEL 9.2 MG/DL (8.5-10.1); CARBON DIOXIDE LEVEL 36 MEQ/L (21-32); CHLORIDE LEVEL 98 MEQ/L (98-107); CREATININE FOR GFR 0.89 MG/DL (0.70-1.30); GLOMERULAR FILTRATION RATE > 60.0 (>56); GLUCOSE, FASTING 87 MG/DL (70-100); SODIUM LEVEL 136 MEQ/L (136-145)
[2018-10-22] MEDS: HumaLOG INSULIN (NovoLOG) PER UNIT SC SCH ×2 (07:30→12:00)
[2018-10-22] MEDS ORDERED: ELIQ5TAB PO (08:03)
[2018-10-22] MEDS: ENOXAPARIN 100MG/1ML SYRINGE (J1650) SC SCH ×2 (08:10→21:02)
[2018-10-22] MEDS: GABAPENTIN 100 MG CAP PO SCH ×2 (08:11→21:01)
[2018-10-22] MEDS: MULTIVITAMINS/MINERALS THERAP 1 TAB PO SCH (08:11)
[2018-10-22] MEDS: THIAMINE 100 MG TAB PO SCH ×2 (08:11→21:01)
[2018-10-22] MEDS: LACTOBACILLUS ACIDOPHILUS CAP (BACID) PO SCH ×3 (08:11→17:22)
[2018-10-22] MEDS: METOPROLOL SUCC (TopROL XL) 50MG **XL** TAB PO SCH ×2 (08:12→21:01)
[2018-10-22] MEDS: amLODIPine 10 MG TAB PO SCH (08:12)
[2018-10-22] MEDS: FUROSEMIDE 20 MG TAB PO SCH (08:13)
[2018-10-22] MEDS: FOLIC ACID 1 MG TAB PO SCH (08:13)
[2018-10-22] MEDS: MUPIROCIN 2% OINT 22 GM TUBE TOP SCH ×2 (09:00→21:03)
[2018-10-22 10:17] VITALS: BP 145/83
[2018-10-22 14:00] VITALS: BP 161/78
--- NOTE | 2018-10-22 15:52 | IPNPDOC ---
Text Note Date of Service The patient was seen on 10/22/18. NOTE SUBJECTIVE: Patient is seen and examined in the room with his cousin. Patient states his lower extremity swellings are improving. He feels his breathing is improving. No fever or chill. Denies chest pain. OBJECTIVE: VITAL SIGNS: Listed below. GENERAL: Patient is alert and awake. HEENT: Normocephalic, atraumatic. Extraocular muscles grossly intact. CARDIOVASCULAR: Positive S1, S2, regular rate. LUNGS: Mild crackles, no wheezes. ABDOMEN: Soft, nontender, bowel sounds present. EXTREMITIES: Positive pitting edema bilaterally, improving. Erythematous skin changes between the knee and the ankle bilaterally. No tenderness to palpation. LABORATORY DATA: Listed below. ASSESSMENT AND PLAN: #. Acute pulmonary embolus. - Ct angiogram on 10/20/18 demonstrate PE at left lower lobe. On Lovenox. PFS is assisting on Eliquis pre-autherization process. #. Lower extremity swelling and erythema. - Patient has chronic venous stasis which could be complicated by possible dermatitis or cellulitis. On empiric antibiotics. #. Tobacco abuse. On nicotine supplement as needed. # Alcohol Abuse - On thiamine, folate and multivitamin. On CIWA protocol. #. Chronic obstructive pulmonary disease (COPD). No exacerbation at this moment. #. Deep venous thrombosis (DVT) prophylaxis. - Currently patient is on Lovenox for pulmonary embolus (PE) treatment. VS,Fishbone, I+O VS, Fishbone, I+O Laboratory Tests 10/22/18 06:06 Red Blood Count 4.59, Mean Corpuscular Volume 99.6 H, Mean Corpuscular Hemoglobin 30.9, Mean Corpuscular Hemoglobin Concent 31.1 L, Red Cell Distribution Width 14.6 H, Calcium Level 9.2 Vital Signs Date Time Temp Pulse Resp B/P (MAP) Pulse Ox O2 Delivery O2 Flow Rate FiO2 10/22/18 10:21 2.0 10/22/18 10:17 81 145/83 10/22/18 06:00 97.6 22 98 10/20/18 20:24 Nasal Cannula I&O- Last 24 Hours up to 6 AM 10/22/18 06:00 Intake Total 2675 ml Output Total 1300 ml Balance 1375 ml JAZZY BRAMBILA DO Oct 22, 2018 15:51
[2018-10-22] MEDS: FUROSEMIDE 40 MG TAB PO SCH (17:22)
[2018-10-22 19:29] VITALS: BP 145/83
[2018-10-22] MEDS: NICOTINE 21MG/24HR 1 EA TRANSDERMAL TD SCH (21:02)
[2018-10-22 22:00] VITALS: BP 158/70
[2018-10-23] MEDS: CLINDAMYCIN 600 MG in APPROPRIATE DILUENT 1 EA IV SCH ×2 (01:20→08:49)
[2018-10-23 03:30] VITALS: BP 152/70
[2018-10-23 06:00] VITALS: BP 139/72
[2018-10-23 06:25] LABS: HEMATOCRIT 46.2 % (42.0-52.0); HEMOGLOBIN 14.9 g/dl (13.5-17.5); MEAN CORPUSCULAR HEMOGLOBIN 31.5 pg (27.0-33.0); MEAN CORPUSCULAR HGB CONC 32.3 g/dl (32.0-36.5); MEAN CORPUSCULAR VOLUME 97.7 fl (80.0-96.0); PLATELET COUNT, AUTOMATED 227 10^3/uL (150-450); RED BLOOD COUNT 4.73 10^6/uL (4.30-6.10); WHITE BLOOD COUNT 6.2 10^3/uL (4.0-10.0)
[2018-10-23 06:44] LABS: HEMOGLOBIN A1c 6.1 %
[2018-10-23 06:52] LABS: BLOOD UREA NITROGEN 18 MG/DL (7-18); CALCIUM LEVEL 9.3 MG/DL (8.5-10.1); CARBON DIOXIDE LEVEL 37 MEQ/L (21-32); CHLORIDE LEVEL 95 MEQ/L (98-107); CREATININE FOR GFR 0.96 MG/DL (0.70-1.30); GLOMERULAR FILTRATION RATE > 60.0 (>56); GLUCOSE, FASTING 83 MG/DL (70-100); MAGNESIUM LEVEL 1.8 MG/DL (1.8-2.4); POTASSIUM SERUM 4.4 MEQ/L (3.5-5.1); SODIUM LEVEL 135 MEQ/L (136-145)
[2018-10-23] MEDS: THIAMINE 100 MG TAB PO SCH (08:46)
[2018-10-23] MEDS: GABAPENTIN 100 MG CAP PO SCH (08:47)
[2018-10-23] MEDS: FOLIC ACID 1 MG TAB PO SCH (08:47)
[2018-10-23] MEDS: METOPROLOL SUCC (TopROL XL) 50MG **XL** TAB PO SCH (08:47)
[2018-10-23] MEDS: FUROSEMIDE 40 MG TAB PO SCH (08:47)
[2018-10-23] MEDS: MULTIVITAMINS/MINERALS THERAP 1 TAB PO SCH (08:47)
[2018-10-23] MEDS: LACTOBACILLUS ACIDOPHILUS CAP (BACID) PO SCH ×2 (08:47→12:27)
[2018-10-23 08:48] VITALS: BP 139/72
[2018-10-23] MEDS: ENOXAPARIN 100MG/1ML SYRINGE (J1650) SC SCH (08:48)
[2018-10-23] MEDS: amLODIPine 10 MG TAB PO SCH (08:48)
[2018-10-23] MEDS: MUPIROCIN 2% OINT 22 GM TUBE TOP SCH (08:49)
[2018-10-23 10:04] VITALS: BP 139/72
[2018-10-23] MEDS ORDERED: DOXY-350 PO (12:24)
[2018-10-23] MEDS ORDERED: METO1TAB7 PO (12:24)
--- NOTE | 2018-10-25 13:16 | DS.PDOC ---
Discharge Summary General Date of Admission Oct 20, 2018 at 16:39 Date of Discharge 10/23/18 Discharge Summary PROCEDURES PERFORMED DURING STAY: None. ADMITTING/DISCHARGE DIAGNOSES: Left lower lobe pulmonary embolism Lower extremity cellulitis Morbid obesity Tobacco abuse Alcohol abuse Prediabetes COMPLICATIONS/CHIEF COMPLAINT: Cellulitis Lower Extremity,Pulmonary Emboli. HISTORY OF PRESENT ILLNESS: . 58-year-old male with past medical history of morbid obesity, hypertension, chronic alcoholism, chronic tobacco abuse, pre-diabetes, and COPD presented to the ER with a chief complaint of bilateral lower extremity swelling/tenderness and worsening shortness of breath. The patient states that he received antibiotics as an outpatient for cellulitis of the lower extremities. However, his shortness of breath worsened. He denied any complaints of lightheadedness, dizziness, chest pain, palpitations, abdominal pain, orthopnea, or any nausea/vomiting/diarrhea. In the ER, a CT angiogram of the chest was notable for a left lower lobe pulmonary embolism. The patient was admitted to the hospitalist service for further evaluation and management. During hospitalization, the patient was started on antibiotic therapy and his lower extremity cellulitis significantly improved. The patient was also started on anticoagulation and his shortness of breath also improved. At this time, the patient states that he is feeling much better and is eager to return home. He has cleared physical therapy, and has not endorsed any complaints of chest pain, palpitations, or shortness of breath. I've advised the patient to follow-up with his primary care physician within 7 days. Lastly, the patient has been counseled to return to the ER for any acute emergency. DISCHARGE MEDICATIONS: Please see below. ALLERGIES: Please see below. PHYSICAL EXAMINATION ON DISCHARGE: VITAL SIGNS: Please see below. GENERAL: Patient is alert, awake, and oriented x 4 HEENT: Normocephalic, atraumatic. CARDIOVASCULAR: Positive S1, S2, regular rate. LUNGS: Diminished ABDOMEN: Soft, nontender, bowel sounds present. EXTREMITIES: Erythematous skin changes between the knee and the ankle bilaterally--improved. No tenderness to palpation. LABORATORY DATA: Please see below. IMAGING: RIGHT LOWER EXTREMITY DOPPLER VENOUS ULTRASOUND: 10/20/2018. Comparison: None. Clinical history: Swelling and pain of the right lower extremity, status post a fall. Technique: The deep venous system of the right lower extremity is evaluated with sheets scale imaging, compression ultrasound, color imaging and duplex Doppler interrogation. Examination from the groin through the popliteal fossa into the proximal calf. Findings: There is full compressibility from the common femoral vein in the inguinal region through the popliteal vein. Color imaging confirms patency throughout the course of the deep venous system. There is respiratory variation and augmented flow at all levels. There is a complex Fishman's cyst in the popliteal fossa is 6.2 x 2.6 x 3.1 cm. Impression: 1. No Doppler venous ultrasound evidence of DVT in the right lower extremity. 10/20/2018. 2. Complex Fishman's cyst popliteal fossa, 6.2 x 3.1 x 2.6 cm. CHEST PA AND LATERAL: 10/20/2018. COMPARISON: Lung windows from CT abdomen 10/12/2018, PA chest 06/27/2018, chest x-ray 08/19/2012. CLINICAL HISTORY: Dyspnea. FINDINGS: The two views show the lung valdez well inflated. Chest wall tissues superimposed over the lower lung zones, somewhat limiting frontal evaluation. There is no dense consolidation, pleural effusion, lateral pleural thickening, or apical scarring. No pneumothorax. No parenchymal mass or nodule. No visible hiatal hernia. The aorta and airway are intact. There is no widening of the mediastinum. There is no vascular redistribution or pulmonary edema. IMPRESSION: 1. No gross cardiomegaly, edema, effusion, or definite infiltrate. Airway, mediastinal contours, and aorta unremarkable. CT ANGIOGRAM CHEST. 10/20/2018. Comparison: Low-dose lung screening CT 09/13/2018. Chest x-ray 10/20/2018, chest CT 07/16/2008. CLINICAL HISTORY: Dyspnea, evaluate for elevated D-dimer. Rule out pulmonary embolism. TECHNIQUE: 75 mL bolus of Isovue [address] angiogram protocol with both coronal and sagittal thick slab MIP and standard reformats. FINDINGS: Some minor curvilinear atelectatic change at the anterior left and right lung base along the heart borders. No pleural effusion, pleural-based mass, calcified pleural plaque, or pulmonary nodule. Some respiratory motion blur limits evaluation of the lung valdez. Heart size upper limits of normal, there is no pericardial thickening or effusion. The aorta is without aneurysm or dissection. The main, right, and left pulmonary arteries and the mediastinum are without filling defects. Due to some respiratory motion, the lobar arteries are less well depicted and the segmental and subsegmental arteries are largely obscured; however, there is a suggested opacity in the left lower lobe pulmonary artery, several consecutive images from 105 through 111 on series 401. Other vessels cannot be commented on with certainty. No axillary or supraclavicular mass. No pathologic-sized mediastinal adenopathy. Bone windows show sternum, manubrium, medial clavicles, small portions of the humeral heads, the scapulae, ribs, and spine without fracture, compression deformity, or destructive lesions. The upper abdomen shows prominent left hepatic lobe with no hepatomegaly, splenomegaly, or focal lesion. No ascites. Gallbladder shows a stone in its neck and dependent portion 2.8 cm. There is a 2.6 cm left adrenal nodule. This was 2.4 cm on 07/16/2008. Similar appearance overall and the right adrenal gl and normal. No other findings. IMPRESSION: 1. Respiratory motion limits evaluation, but there appears to be a filling defect in the left lower lobe pulmonary artery over several contiguous segments consistent with thrombus from acute pulmonary embolism. See images 105-111 series 401 on that left side. 2. No effusion, parenchymal mass, or definite acute infiltrate. There is some minor basilar atelectatic change in the anterior lung bases, right and left sides of the heart. 3. A 2.8 cm gallstone in the gallbladder and a fairly stable left adrenal nodule that has only increased 4 mm in size over the 10-year interval between CTs. It is consistent with a benign adrenal adenoma. PROGNOSIS: Fair ACTIVITY: As tolerated. DIET: 2 g low-sodium, low-fat/low-cholesterol diet DISCHARGE PLAN: DISPOSITION: 01 Home, Self-Care. DISCHARGE INSTRUCTIONS: I've advised the patient to follow-up with his primary care physician within 7 days. Lastly, the patient has been counseled to return to the ER for any acute emergency. DISCHARGE CONDITION: Stable. TIME SPENT ON DISCHARGE: Greater than 30 minutes. Vital Signs/I&Os Vital Signs Date Time Temp Pulse Resp B/P (MAP) Pulse Ox O2 Delivery O2 Flow Rate FiO2 10/23/18 10:09 2.0 10/23/18 10:04 79 139/72 10/23/18 06:00 98.1 18 93 10/20/18 20:24 Nasal Cannula Discharge Medications Scheduled (Incruse Ellipta) 62.5 Mcg/Inh Inh, 1 PUFF INH DAILY, (Reported) Amlodipine Besylate (Amlodipine Besylate) 10 Mg Tab, 10 MG PO DAILY, (Reported) Apixaban Base (Eliquis) 5 Mg Tab, 5 MG PO ASDIRECTED 10 MG (2 TABS) TWICE PER DAY FOR 7 DAYS THEN 5 MG (1 TAB) TWICE PER DAY Doxycycline Hyclate (Doxycycline) 100 Mg Cap, 1 CAP PO BID Fluticasone/Vilanterol (Breo Ellipta 100-25 Mcg/INH) 1 Inh Inh, 1 PUFF PO DAILY, (Reported) Furosemide (Furosemide) 20 Mg Tab, 80 MG PO DAILY, (Reported) Gabapentin (Gabapentin) 100 Mg Cap, 100 MG PO QID, (Reported) Metoprolol Succinate (Metoprolol Succinate ER) 50 Mg Tab, 50 MG PO BID Mupirocin (Mupirocin) 2 % Oin, 1 APLCT TOP BID, (Reported) APPLY TO WOUNDS ON LEGS Nicotine (Nicotine Transdermal Syst) 21 Mg/24 Hr Dis, 21 MG TD DAILY, (Reported) Scheduled PRN (Lidocaine) 5 % Cre, 1 APLCT TOP PRN PRN for PAIN, (Reported) APPLY TO PAIN AREA(S) ON LEGS Albuterol Sulfate (Proair Hfa) 108 Mcg/Act Aer, 2 PUFF INH Q4H PRN for SHORTNESS OF BREATH, (Reported) Albuterol/Ipratropium (Ipratropium [place]/Albut 0.5-2.5 (3) mg/3Ml) 1 Daniel Daniel, 1 DANIEL INH Q8H PRN for SHORTNESS OF BREATH, (Reported) Naproxen Sodium (Aleve) 220 Mg Tab, 220 MG PO BID PRN for PAIN, (Reported) Allergies Coded Allergies: Penicillins (Verified Allergy, Intermediate, 06/27/18) STEFANIE BARR MD Oct 25, 2018 13:16
== END 2018-10-23 13:23 | disposition home or self-care (01) | DRG 383 ==
LOC: M ED 11:09 → M ED INP 16:39 → M MSPAV 20:55
PROVIDERS: ADMIT Internal Medicine; ATTEND Internal Medicine
DX: L03.115 Cellulitis of right lower limb (principal); I26.99 Other pulmonary embolism without acute cor pulmonale; E11.40 Type 2 diabetes mellitus with diabetic neuropathy, unspecified; Z68.43 Body mass index [BMI] 50.0-59.9, adult; E66.01 Morbid (severe) obesity due to excess calories; J44.9 Chronic obstructive pulmonary disease, unspecified; I10 Essential (primary) hypertension; F10.20 Alcohol dependence, uncomplicated; F17.200 Nicotine dependence, unspecified, uncomplicated; Z79.899 Other long term (current) drug therapy; L03.116 Cellulitis of left lower limb

== ENCOUNTER 2019-02-17 01:05 | Emergency (ER) | payer MEDICAID ==
[~2019-02-17] VITALS: Ht 182.9 cm; Wt 156.8 kg
[~2019-02-17 01:05] MED LIST changes: +AMLO10TA5 PO; +BACT800T5 PO; +DOXY-350 PO; +ELIQ5TAB PO; +HYDR-3715 PO; +LIDO4CRE4 TOP; +MUPI2OI TOP; -NORCOTAB PO
[2019-02-17 01:37] LABS: BASO # 0.1 10^3/uL (0.0-0.2); BASO % 0.5 % (0.0-1.0); EOS # 0.3 10^3/uL (0.0-0.50); EOS % 2.6 % (0.0-3.0); HEMATOCRIT 46.8 % (42.0-52.0); HEMOGLOBIN 14.9 g/dl (13.5-17.5); LYMPH # 2.8 10^3/uL (1.5-4.5); LYMPH % 25.2 % (24.0-44.0); MEAN CORPUSCULAR HEMOGLOBIN 31.5 pg (27.0-33.0); MEAN CORPUSCULAR HGB CONC 31.8 g/dl (32.0-36.5); MEAN CORPUSCULAR VOLUME 98.9 fl (80.0-96.0); MONO # 0.8 10^3/uL (0.0-0.8); MONO % 7.1 % (0.0-5.0); NEUTROPHILS # 6.9 10^3/uL (1.8-7.7); NEUTROPHILS % 63.4 % (36.0-66.0); PLATELET COUNT, AUTOMATED 355 10^3/uL (150-450); RED BLOOD COUNT 4.73 10^6/uL (4.30-6.10); WHITE BLOOD COUNT 10.9 10^3/uL (4.0-10.0)
[2019-02-17 01:38] LABS: VENOUS HCO3 32.1 MEQ/L (23.0-27.0); VENOUS O2 SATURATION 87.1 % (60.0-80.0); VENOUS PARTIAL PRESSURE CO2 51.3 mmHg (38.0-50.0); VENOUS PARTIAL PRESSURE O2 47.7 mmHg (30.0-50.0); VENOUS PH 7.414 UNITS (7.330-7.430); VENOUS STANDARD HCO3 29.6 MEQ/L; VENOUS TOTAL CO2 33.7 MEQ/L (24.0-28.0)
[2019-02-17 02:06] LABS: ALBUMIN 2.7 GM/DL (3.2-5.2); ALT/SGPT 47 U/L (12-78); BILIRUBIN,DIRECT 0.1 MG/DL (0.0-0.2); BILIRUBIN,TOTAL 0.1 MG/DL (0.2-1.0); BLOOD UREA NITROGEN 25 MG/DL (7-18); CALCIUM LEVEL 8.8 MG/DL (8.5-10.1); CARBON DIOXIDE LEVEL 35 MEQ/L (21-32); CHLORIDE LEVEL 96 MEQ/L (98-107); CPK CREATINE PHOSPHOKINASE 84 U/L (39-308); CREATININE FOR GFR 1.64 MG/DL (0.70-1.30); GLOMERULAR FILTRATION RATE 46.3 (>56); GLUCOSE, FASTING 99 MG/DL (70-100); MB/CK RELATIVE INDEX 2.38 (< OR =4); NT-PRO BNP 198 PG/ML (<125); POTASSIUM SERUM 4.4 MEQ/L (3.5-5.1); SODIUM LEVEL 136 MEQ/L (136-145); THYROXINE (T4) 10.6 UG/DL (4.5-12.0); TOTAL PROTEIN 6.9 GM/DL (6.4-8.2); TROPONIN I < 0.02 NG/ML (< 0.10)
[2019-02-17 03:09] LABS: HEMOGLOBIN A1c 6.8 %
[2019-02-17] MEDS ORDERED: FUROSEMIDE 40 MG/4 ML VIAL (J1940) IV ONE (04:45)
[2019-02-17] MEDS ORDERED: NEUR300C PO (04:46)
[2019-02-17 05:02] VITALS: BP 163/93
--- NOTE | 2019-02-17 14:50 | REP ---
Bilateral lower extremity Duplex Doppler venous ultrasound: Real time compression and duplex Doppler interrogation of the bilateral lower extremity deep venous system is performed. Bilaterally, the common femoral, superficial femoral and popliteal veins are fully compressible with transducer pressure and demonstrate normal spontaneous and phasic flow, without evidence of deep venous thrombosis. Impression: No evidence of deep venous thrombosis of the bilateral lower extremity femoral popliteal venous system. Electronically Signed by Leoncio Zarate MD 02/17/2019 02:42 P
--- NOTE | 2019-02-17 18:55 | ECGEPIP ---
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
--- NOTE | 2019-02-18 07:37 | REP ---
CHEST, SINGLE VIEW: Single view of the chest is performed and compared to prior study of 10/20/2018. There is minor fibroatelectatic change in each lung base. No new infiltrate is seen. The heart appears upper limits of normal in size. Mediastinal silhouette is unchanged. IMPRESSION: No acute findings. No change since prior study 10/20/2018. Electronically Signed by Leoncio Zarate MD 02/18/2019 08:34 A
== END 2019-02-17 05:29 | disposition home or self-care (01) ==
LOC: M ED 01:05
DX: I50.9 Heart failure, unspecified (principal); R00.0 Tachycardia, unspecified; R94.31 Abnormal electrocardiogram [ECG] [EKG]; E11.9 Type 2 diabetes mellitus without complications; Z72.0 Tobacco use; Z79.899 Other long term (current) drug therapy; Z88.0 Allergy status to penicillin
CPT/HCPCS: 71045; 80048; 80076; 82550; 82553; 82803; 83036; 83605; 83880; 84436; 84443; 85025; 87040; 93005; 93041; 93970; 96374; 99285; J1940

== ENCOUNTER 2019-03-28 00:17 | Inpatient (IN) | payer MEDICAID ==
[~2019-03-28] VITALS: Ht 195.6 cm; Wt 157.6 kg
[2019-03-28] VITALS (15 sets, daily range): BP systolic 131–157; BP diastolic 66–75; O2SAT 60–94
[~2019-03-28 00:17] MED LIST changes: +NEUR300C PO
[2019-03-28 01:04] LABS: BASO % 0.4 % (0.0-1.0); EOS % 0.2 % (0.0-3.0); HEMOGLOBIN 16.4 g/dl (13.5-17.5); LYMPH % 9.2 % (24.0-44.0); MEAN CORPUSCULAR HEMOGLOBIN 31.2 pg (27.0-33.0); MEAN CORPUSCULAR HGB CONC 31.5 g/dl (32.0-36.5); MONO # 0.9 10^3/uL (0.0-0.8); MONO % 8.4 % (0.0-5.0); NEUTROPHILS # 8.7 10^3/uL (1.8-7.7); NEUTROPHILS % 80.9 % (36.0-66.0); PLATELET COUNT, AUTOMATED 300 10^3/uL (150-450); RED BLOOD COUNT 5.25 10^6/uL (4.30-6.10); WHITE BLOOD COUNT 10.7 10^3/uL (4.0-10.0)
[2019-03-28 01:26] LABS: ABG BASE EXCESS 10.1 (-2.0-2.0); ABG HCO3 37.3 MEQ/L (22.0-26.0); ABG PARTIAL PRESSURE CO2 58.6 mmHg (35.0-45.0); ABG PARTIAL PRESSURE O2 57.6 mmHg (75.0-100.0); ABG STANDARD HCO3 33.7 MEQ/L (22.0-26.0); ABG TOTAL CO2 39.1 MEQ/L (22.0-29.0); ABG pH (ARTERIAL) 7.422 UNITS (7.350-7.450)
[2019-03-28 01:36] LABS: BLOOD UREA NITROGEN 19 MG/DL (7-18); CALCIUM LEVEL 9.9 MG/DL (8.5-10.1); CARBON DIOXIDE LEVEL 39 MEQ/L (21-32); CHLORIDE LEVEL 95 MEQ/L (98-107); CREATININE FOR GFR 1.12 MG/DL (0.70-1.30); GLOMERULAR FILTRATION RATE > 60.0 (>56); GLUCOSE, FASTING 122 MG/DL (70-100); NT-PRO BNP 2324 PG/ML (<125); POTASSIUM SERUM 5.3 MEQ/L (3.5-5.1); SODIUM LEVEL 138 MEQ/L (136-145)
[2019-03-28] MEDS ORDERED: IPRATROPIUM 0.5MG/ALBUTEROL 2.5MG INH SOL UD 3ML (DUONEB)(J7620) NEB ONE (01:45)
[2019-03-28] MEDS ORDERED: FUROSEMIDE 100 MG/10 ML VIAL (J1940) IV ONE (05:30)
[2019-03-28] MEDS ORDERED: MAALOX 30 ML SUSP *UDC PO PRN (05:45)
[2019-03-28] MEDS ORDERED: MOM 30ML SUSPENSION UDC PO PRN (05:45)
--- NOTE | 2019-03-28 05:46 | ECGEPIP ---
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
[2019-03-28] MEDS ORDERED: METO1TAB32 PO (05:59)
[2019-03-28] MEDS ORDERED: IPRA0.00 IN (05:59)
[2019-03-28] MEDS ORDERED: POTA10TA17 PO (05:59)
[2019-03-28] MEDS ORDERED: FURO40TA2 PO (05:59)
[2019-03-28] MEDS ORDERED: ELIQ5TAB PO (05:59)
[2019-03-28] MEDS ORDERED: ACET-897 PO (05:59)
[2019-03-28] MEDS ORDERED: GLUCAGON FOR INJ 1 MG VIAL (J1610) SC PRN (06:00)
[2019-03-28] MEDS ORDERED: GLUCOSE 4 GM CHEW TABLET PO PRN (06:00)
[2019-03-28] MEDS ORDERED: DEXTROSE 50% 50 ML SYRINGE IV PRN (06:00)
--- NOTE | 2019-03-28 06:05 | HPEPDOC ---
General Date of Admission Mar 28, 2019 at 05:44 Date of Service: Mar 28, 2019 Attending Physician: KRYSTA TALLEY MD Chief Complaint The patient is a 59-year-old male admitted with a reason for visit of CHF. Source: Family Exam Limitations: Physical impairment Timing/Duration: Day(s) Severity: Moderate Associated Symptoms: Shortness of breath, Other History of Present Illness 59 years old white male with past medical history of multiple medical problems including COPD, GERD, diabetes mellitus, PE, chronic back pain, chronic alcoholism, hypertension, hyperlipidemia, seizure disorder, peripheral neuropathy noncompliant to his meds and a sedentary was brought in by his family as they were unable to move them from the floor to sofa, as was unable to lift him and bring him back to the sofa Patient does not offer any complaint, but as per patient's and other family members. He has not been eating and drinking. He is very weak, does not move from is a sofa and his is nonambulatory and is worsening functional status. They're unable to take care of him . Home Medications Scheduled Amlodipine Besylate (Amlodipine Besylate) 10 Mg Tab, 10 MG PO DAILY, (Reported) Apixaban (Eliquis) 5 Mg Tab, 5 MG PO ASDIRECTED 10 MG (2 TABS) TWICE PER DAY FOR 7 DAYS THEN 5 MG (1 TAB) TWICE PER DAY Doxycycline Monohydrate (Doxycycline) 100 Mg Cap, 1 CAP PO BID Fluticasone/Vilanterol (Breo Ellipta 100-25 Mcg INH) 1 Inh Inh, 1 PUFF PO DAILY, (Reported) Furosemide (Furosemide) 20 Mg Tab, 80 MG PO DAILY, (Reported) Gabapentin (Gabapentin) 100 Mg Cap, 100 MG PO QID, (Reported) Gabapentin (Neurontin) 300 Mg Capsule, 1 CAP PO TID Metoprolol Succinate (Metoprolol Succinate) 50 Mg Tab, 50 MG PO BID Mupirocin (Mupirocin) 2 % Oin, 1 APLCT TOP BID, (Reported) APPLY TO WOUNDS ON LEGS Nicotine (Nicotine Patch) 21 Mg/24 Hr Dis, 21 MG TD DAILY, (Reported) Umeclidinium [place] (Incruse Ellipta) 62.5 Mcg/Inh Inh, 1 PUFF INH DAILY, (Reported) Scheduled PRN Albuterol Sulfate (Proair Hfa) 108 Mcg/Act Aer, 2 PUFF INH Q4H PRN for SHORTNESS OF BREATH, (Reported) Ipratropium/Albuterol Sulfate (Iprat-Albut 0.5-3(2.5) mg/3 ml) 1 Daniel Daniel, 1 DANIEL INH Q8H PRN for SHORTNESS OF BREATH, (Reported) Lidocaine (Lidocaine) 5 % Cre, 1 APLCT TOP PRN PRN for PAIN, (Reported) APPLY TO PAIN AREA(S) ON LEGS Naproxen Sodium (Aleve) 220 Mg Tab, 220 MG PO BID PRN for PAIN, (Reported) Allergies Coded Allergies: Penicillins (Verified Allergy, Unknown, 03/28/19) Past Medical History Medical History Peripheral neuropathy, COPD, GERD, diabetes mellitus, chronic back pain, chronic alcohol disorder use, hypertension, hyperlipidemia, seizure disorder 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 Social History * Smoker: Denies Alcohol: Denies Drugs: denies A-FIB/CHADSVASC A-FIB History Current/History of A-Fib/PAF?: No Current PO Anticoag Therapy: Yes Review of Systems Constitutional: Denies: Chills, Fever, Malaise, Night Sweats, Weakness, Fatigue, Weight Loss, Lethargy, Other Eyes: Denies: Pain, Vision change, Conjunctivae inflammation, Eyelid inflammation, Redness, Other ENT: Denies: Head Aches, Ear Pain, Dysphagia, Sinus Congestion, Post Nasal Drip, Sore Throat, Epistaxis, Other Symptoms Pulmonary: Reports: Dyspnea Cardiovascular: Reports: Edema; Denies: Chest Pain, Palpitations, Orthopnea, Paroxysmal Noc. Dyspnea, Lt Headedness, Other Symptoms Gastrointestinal: Denies: Nausea, Vomiting, Abdominal Pain, Diarrhea, Constipation, Melena, Hematochezia, Other Symptoms Genitourinary: Denies: Dysuria, Frequency, Incontinence, Hematuria, Retention, Other Symptoms Hematologic: Denies: Bruising, Bleeding Excessively, Petecchia, Purpura, Enlarged Lymph Nodes, Other Hematologic Endocrine: Denies: Polydipsia, Polyphagia, Polyuria, Heat Intolerance, Cold Intolerance, Other Endocrine Sx Musculoskeletal: Denies: Neck Pain, Back Pain, Shoulder Pain, Arm Pain, Hand Pain, Leg Pain, Foot Pain, Joint Pain, Muscle Pain, Spasms, Other Symptoms Neurological: Denies: Weakness, Numbness, Incoordination, Change in speech, Confusion, Seizures, Other Symptoms Psych: Denies: Mood Normal, Anxiety, Depression, Memory Issues, Thoughts of Self Harm, Anger, Thoughts of Harming Other, Other Psych Physical Examination General Exam: Positive: Alert Eye Exam: Positive: PERRLA, Conjunctiva & lids normal ENT Exam: Positive: Atraumatic, Mucous membr. moist/pink Neck Exam: Positive: Supple Chest Exam: Positive: Rales, Wheezing, Other (of acute breathing, audible in a couple lobes of both lungs) Heart Exam: Positive: Rate Normal, Normal S1, Normal S2 Abdomen Exam: Positive: Normal bowel sounds, Soft Extremity Exam: Positive: Other (, 3+ bipedal edema and anasarca) Skin Exam: Positive: Other skin issue (, chronic venous status changes in both legs) Neuro Exam: Positive: Other (reported.Exam secondary to patient's habitus physical functional status) Vital Signs Vital Signs Date Time Temp Pulse Resp B/P (MAP) Pulse Ox O2 Delivery O2 Flow Rate FiO2 03/28/19 05:39 100 22 146/70 (95) 91 Nasal Cannula 4.0 03/28/19 00:30 97.0 Laboratory Data Labs 24H Laboratory Tests 2 03/28/19 00:54: Immature Granulocyte % (Auto) 0.9, White Blood Count 10.7H, Red Blood Count 5.25, Hemoglobin 16.4, Hematocrit 52.0, Mean Corpuscular Volume 99.0H, Mean Co rpuscular Hemoglobin 31.2, Mean Corpuscular Hemoglobin Concent 31.5L, Red Cell Distribution Width 18.0H, Platelet Count 300, Neutrophils (%) (Auto) 80.9H, Lymphocytes (%) (Auto) 9.2L, Monocytes (%) (Auto) 8.4H, Eosinophils (%) (Auto) 0.2, Basophils (%) (Auto) 0.4, Neutrophils # (Auto) 8.7H, Lymphocytes # (Auto) 1.0L, Monocytes # (Auto) 0.9H, Eosinophils # (Auto) 0.0, Basophils # (Auto) 0.0, Nucleated Red Blood Cells % (auto) 0.0, Anion Gap 4L, Glomerular Filtration Rate > 60.0, Blood Urea Nitrogen 19H, Creatinine 1.12, Sodium Level 138, Potassium Level 5.3H, Chloride Level 95L, Carbon Dioxide Level 39H, Calcium Level 9.9, CR-Sfi-M-Type Natriuretic Peptide 2324H 03/28/19 01:16: Blood Gas Bicarbonate Standard 33.7H, Arterial Blood pH 7.422, Arterial Blood Partial Pressure CO2 58.6H, Arterial Blood Partial Pressure O2 57.6L, Arterial Blood Total CO2 39.1H, Arterial Blood HCO3 37.3H, Arterial Blood Base Excess 10.1H, Arterial Blood Oxygen Saturation 90.0L CBC/BMP Laboratory Tests 03/28/19 00:54 Red Blood Count 5.25, Mean Corpuscular Volume 99.0 H, Mean Corpuscular Hemoglobin 31.2, Mean Corpuscular Hemoglobin Concent 31.5 L, Red Cell Distributi on Width 18.0 H, Neutrophils (%) (Auto) 80.9 H, Lymphocytes (%) (Auto) 9.2 L, Monocytes (%) (Auto) 8.4 H, Eosinophils (%) (Auto) 0.2, Basophils (%) (Auto) 0.4, Neutrophils # (Auto) 8.7 H, Lymphocytes # (Auto) 1.0 L, Monocytes # (Auto) 0.9 H, Eosinophils # (Auto) 0.0, Basophils # (Auto) 0.0, Calcium Level 9.9 Problems (1) CHF (congestive heart failure) Status: Acute Problem Text: 59 years old white male brought in by family as they were unable to lift him from the floor to his couch, but as per family, patient has been having increasing shortness of breath and worsening functional status since last week or so but no fever. No chest pain, no nausea, vomiting or diarrhea. Most likely is a congestive heart failure secondary to noncompliance with meds and poor physical status. Patient is morbidly obese and is very is a stationary. Admit to PCU with the telemetry Lasix 80 mg IV DuoNeb every 4 hours Urinary catheter Strict I and O's Echocardiogram Continue home meds Out of bed to chair O2 support if needed Chest x-ray was consistent with mild encephalization but vascular studies were negative for DVT He was recently admitted with the PE and is on oral anticoagulant as well DVT prophylaxis not needed as patient is on oral anticoagulant Diabetic diet Physical therapy evaluation (2) Failure to thrive Status: Acute Plan / VTE VTE Prophylaxis Ordered?: Yes KRYSTA TALLEY MD Mar 28, 2019 06:05
--- NOTE | 2019-03-28 07:14 | REP ---
Portable chest, 12th 59 a.m., single AP view with the patient upright: Comparisons are the PA and lateral chest of 10/20/2018 and portable chest of 02/17/2019. There are no infiltrates or effusions. The lung valdez otherwise clear and unchanged, taking into consideration differences in radiographic technique. Cardiac size is upper normal for portable positioning. The eyal, mediastinum, skeletal structures are unchanged. Impression: No acute cardiopulmonary findings. Electronically Signed by Leoncio Patterson MD 03/28/2019 07:05 A
[2019-03-28] MEDS: IPRATROPIUM 0.5MG/ALBUTEROL 2.5MG INH SOL UD 3ML (DUONEB)(J7620) NEB SCH ×5 (08:00→23:28)
[2019-03-28 08:27] LABS: HEMATOCRIT 49.8 % (42.0-52.0); HEMOGLOBIN 15.7 g/dl (13.5-17.5); MEAN CORPUSCULAR HEMOGLOBIN 30.8 pg (27.0-33.0); MEAN CORPUSCULAR HGB CONC 31.5 g/dl (32.0-36.5); MEAN CORPUSCULAR VOLUME 97.8 fl (80.0-96.0); PLATELET COUNT, AUTOMATED 302 10^3/uL (150-450); RED BLOOD COUNT 5.09 10^6/uL (4.30-6.10); WHITE BLOOD COUNT 11.5 10^3/uL (4.0-10.0)
[2019-03-28 08:50] LABS: BLOOD UREA NITROGEN 16 MG/DL (7-18); CALCIUM LEVEL 9.4 MG/DL (8.5-10.1); CARBON DIOXIDE LEVEL 37 MEQ/L (21-32); CHLORIDE LEVEL 95 MEQ/L (98-107); CK-MB VALUE MASS 2.3 NG/ML (<3.6); CPK CREATINE PHOSPHOKINASE 127 U/L (39-308); CREATININE FOR GFR 1.01 MG/DL (0.70-1.30); GLOMERULAR FILTRATION RATE > 60.0 (>56); GLUCOSE, FASTING 105 MG/DL (70-100); MB/CK RELATIVE INDEX 1.81 (< OR =4); POTASSIUM SERUM 3.8 MEQ/L (3.5-5.1); SODIUM LEVEL 136 MEQ/L (136-145); TROPONIN I < 0.02 NG/ML (< 0.10)
[2019-03-28] MEDS ORDERED: ENOXAPARIN 40 MG/0.4 ML SYRINGE (J1650) SC SCH (09:00)
[2019-03-28] MEDS: NYSTATIN 100,000 UNITS/GM TOPICAL PWD 15 GM TOP SCH ×2 (09:00→20:39)
[2019-03-28] MEDS ORDERED: POTASSIUM CHLORIDE 10 MEQ SR TABLET PO SCH (09:00)
--- NOTE | 2019-03-28 09:14 | REP ---
Bilateral lower extremity Duplex Doppler venous ultrasound: Real time compression and duplex Doppler interrogation of the bilateral lower extremity deep venous system is performed. Bilaterally, the common femoral, superficial femoral and popliteal veins are fully compressible with transducer pressure and demonstrate normal spontaneous and phasic flow, without evidence of deep venous thrombosis. Impression: No evidence of deep venous thrombosis of the bilateral lower extremity femoral popliteal venous system. Right popliteal cyst measures 5.5 x 3.2 x 1.7 cm and left popliteal cyst measures 3.7 x 2.6 x 1.0 cm. Electronically Signed by Leoncio Zarate MD 03/28/2019 09:05 A
[2019-03-28] MEDS: APIXABAN 5 MG TAB (ELIQUIS) PO SCH ×2 (09:40→20:38)
[2019-03-28] MEDS: METOPROLOL SUCC *XL* 25MG TAB (TopROL *XL*) PO SCH (09:40)
[2019-03-28] MEDS: HumaLOG INSULIN (NovoLOG) PER UNIT SC SCH ×4 (09:40→20:39)
[2019-03-28] MEDS: GABAPENTIN 100 MG CAP PO SCH ×3 (09:41→20:38)
[2019-03-28] MEDS: DOCUSATE SODIUM 100 MG CAP PO SCH ×2 (09:41→20:38)
[2019-03-28] MEDS: amLODIPine 5 MG TAB PO SCH (09:41)
[2019-03-28] MEDS: FUROSEMIDE 100 MG/10 ML VIAL (J1940) IV SCH (17:34)
--- NOTE | 2019-03-28 18:07 | ECHO ---
DATE OF PROCEDURE: 03/28/2019 REFERRING PHYSICIAN: Dr. Sharad Hernandez INDICATION: Heart failure, unspecified. HEIGHT: 178 cm WEIGHT: 158 kg 2D MEASUREMENTS: Left atrium: 4.0 cm Ventricular septum: 1.32 cm Posterior wall: 1.30 cm Left ventricle diastole: 4.3 cm Aortic root: 2.9 cm LVOT: 2.3 cm Inferior vena cava: 2.1 cm DOPPLER MEASUREMENTS: Aortic valve velocity: 189 cm/s LVOT velocity: 119 cm/s LVOT VTI: 18.6 cm Mitral E velocity: 78.0 cm/s Mitral A velocity: 94.3 cm/s Mitral deceleration time: 204 ms Very mild tricuspid regurgitation. Estimated right ventricle systolic pressure: 44-49 mmHg MITRAL ANNULAR TISSUE DOPPLER: E prime septal: 5.1 cm/s E prime lateral: 6.3 cm/s DESCRIPTION: Rhythm was sinus. Image quality was moderately technically difficult. This was a 2D, M-mode, color flow Doppler and pulse wave Doppler examination. CONCLUSIONS: 1. Mild concentric left ventricle hypertrophy. Normal regional LV wall motion and wall thickening. Normal left ventricular (LV) systolic function. Left ventricular ejection fraction (LVEF) 65-70% by visual estimate. Grade 1 LV diastolic dysfunction (impaired relaxation filling pattern). 2. Suggestive of moderate elevation of estimated right ventricle systolic pressure. 3. Mild mitral annular calcification. No mitral regurgitation. 4. Very small pericardial effusion measuring 4 mm over the posterior wall of the left ventricle. No diastolic chamber collapse. 5. Normal right ventricle size and systolic function.
[2019-03-28] MEDS: ACETAMINOPHEN TAB 650MG DOSE (2X325MG) PO PRN (23:46)
[2019-03-29] VITALS (23 sets, daily range): BP systolic 115–167; BP diastolic 55–88; O2SAT 81–98
[2019-03-29] MEDS: IPRATROPIUM 0.5MG/ALBUTEROL 2.5MG INH SOL UD 3ML (DUONEB)(J7620) NEB SCH ×5 (04:01→19:28)
[2019-03-29 05:31] LABS: HEMATOCRIT 50.9 % (42.0-52.0); HEMOGLOBIN 15.6 g/dl (13.5-17.5); MEAN CORPUSCULAR HGB CONC 30.6 g/dl (32.0-36.5); MEAN CORPUSCULAR VOLUME 101.2 fl (80.0-96.0); PLATELET COUNT, AUTOMATED 283 10^3/uL (150-450); RED BLOOD COUNT 5.03 10^6/uL (4.30-6.10); WHITE BLOOD COUNT 10.5 10^3/uL (4.0-10.0)
[2019-03-29 05:47] LABS: BLOOD UREA NITROGEN 17 MG/DL (7-18); CALCIUM LEVEL 9.8 MG/DL (8.5-10.1); CARBON DIOXIDE LEVEL 41 MEQ/L (21-32); CHLORIDE LEVEL 93 MEQ/L (98-107); CREATININE FOR GFR 0.93 MG/DL (0.70-1.30); GLOMERULAR FILTRATION RATE > 60.0 (>56); GLUCOSE, FASTING 126 MG/DL (70-100); POTASSIUM SERUM 3.8 MEQ/L (3.5-5.1); SODIUM LEVEL 136 MEQ/L (136-145)
[2019-03-29] MEDS: HumaLOG INSULIN (NovoLOG) PER UNIT SC SCH ×4 (09:53→20:35)
[2019-03-29] MEDS: amLODIPine 5 MG TAB PO SCH (09:54)
[2019-03-29] MEDS: METOPROLOL SUCC *XL* 25MG TAB (TopROL *XL*) PO SCH (09:54)
[2019-03-29] MEDS: DOCUSATE SODIUM 100 MG CAP PO SCH ×2 (09:54→21:37)
[2019-03-29] MEDS: FUROSEMIDE 100 MG/10 ML VIAL (J1940) IV SCH ×2 (09:54→17:58)
[2019-03-29] MEDS: GABAPENTIN 100 MG CAP PO SCH ×3 (09:54→21:37)
[2019-03-29] MEDS: APIXABAN 5 MG TAB (ELIQUIS) PO SCH ×2 (09:55→21:37)
[2019-03-29] MEDS: NYSTATIN 100,000 UNITS/GM TOPICAL PWD 15 GM TOP SCH ×2 (09:55→23:26)
[2019-03-29] MEDS ORDERED: SLF 3 ML SYR IV PRN (10:45)
[2019-03-29] MEDS: SLF 3 ML SYR IV SCH ×2 (14:00→21:39)
--- NOTE | 2019-03-29 15:03 | IPNPDOC ---
Text Note Date of Service The patient was seen on 03/29/19. NOTE SUBJECTIVE: Patient examined at bedside. States he is feeling better, less short of breath.. Less distress compared to prior day. Reportedly de-satted to 70s overnight while sleeping, noncompliant with CPAP, and laying flat. Satting around mid 80s when awake and off of oxygen. Otherwise patient denies chest pain, shortness breath, nausea, vomiting, fevers, chills. Weight is down 3 kg from yesterday. OBJECTIVE PHYSICAL EXAMINATION: VITAL SIGNS: Please see below. GENERAL: Pleasant resting comfortable in bed laying flat in bed awake alert oriented speaking in complete sentences no acute distress HEENT: Moist mucous membranes difficult to assess CVP due to body habitus CARDIOVASCULAR: S1 S2 regular no additional heart sounds appreciated. RESPIRATORY: Distant lung sounds given large body habitus, improved bibasilar rales from yesterday ABDOMINAL: Obese, Bowel sounds present abdomen soft and non-tender EXTREMITIES: No appreciable edema NEUROLOGICAL: Spontaneously moves all 4 extremities cranial 2 through 12 grossly intact no gross focal deficits appreciated PSYCHOLOGICAL: Poor historian, in good mood LABORATORY DATA, MICROBIOLOGY: Please see below. IMAGING STUDIES: * 03/28/2019 CXR: No acute cardiopulmonary findings * 03/28/2019 bilateral lower extremity Doppler: No evidence of deep venous thrombosis of the bilateral lower extremity femoral popliteal venous system. Right popliteal cyst measures 5.5 x 3.2 x 1.7 cm and left popliteal cyst measures 3.7 x 2.6 x 1.0 cm. * 03/28/2019 transthoracic echo: 1. Mild concentric left ventricle hypertrophy. Normal regional LV wall motion and wall thickening. Normal left ventricular (LV) systolic function. Left ventricular ejection fraction (LVEF) 65-70% by visual estimate. Grade 1 LV diastolic dysfunction (impaired relaxation filling pattern). 2. Suggestive of moderate elevation of estimated right ventricle systolic pressure. 3. Mild mitral annular calcification. No mitral regurgitation. 4. Very small pericardial effusion measuring 4 mm over the posterior wall of the left ventricle. No diastolic chamber collapse. 5. Normal right ventricle size and systolic function. ASSESSMENT AND PLAN: This is a morbidly obese 59-year-old male, noncompliant with CPAP and medications, with gradually worsening shortness of breath and lower extremity swelling. PROBLEMS: 1. Acute on chronic hypoxic and hypercapnic respiratory failure: Likely 2/2 acut abbey decompensated diastolic CHF. Patient is on 2-3 L nasal cannula at baseline, requiring 4 L and above during this stay. BNP >2000 on admission, bibasilar crackles, patient reporting increase lower extremity swelling, grade 1 diastolic dysfunction noted on echo. Continue diuresing, monitor I's and O's, elevate head of bed, strict 2L fluid restriction. Patient is down 3 kg from yesterday. Continue daily weights. Patient is reporting improved breathing since he started diuresing. I suspect part of his increased oxygen demand is also from his chronic noncompliance with CPAP, obesity hypoventilation syndrome, history of COPD, all exacerbated in the setting of his hypervolemic status. Continue e ncouragement and titrate down her O2 as tolerated. Patient was counseled on medical compliance. 2. History of PE: Recently diagnosed Oct of this year. Continue Eliquis 3. COPD: Continue regular home nebs and inhalers 4. Hypertension: Controlled, continue home amlodipine and metoprolol 5. LEA: Patient noncompliant with CPAP. Place on LEA protocol 6. Bedbugs: Lives at home with his friend, neeta, stated there are bedbugs. Pl aced on contact precautions 7. Hyperlipidemia: Not on any meds 8. Morbid obesity: Complicates care 9. Medical noncompliance: Patient counseled in depth on importance of following with her regular providers and taking all meds and using CPAP as prescribed at home. 10. NIDDM 2: A1c 6.8 February of this year. Patient not on any medications. On insul in sliding scale inpatient 11. Tobacco use: Patient counseled on smoking cessation. Worsening his baseline breathing. DVT prophylaxis: Chronically on Eliquis DISPOSITION: Continue diuresis, pending clinical improvement. PFS assisting with placement. PT & OT. I saw and evaluated the patient. I agree with the findings and plan of care as documented in the above note VS,Thelma, I+O VS, Thelma, I+O Laboratory Tests 03/29/19 05:09 Red Blood Count 5.03, Mean Corpuscular Volume 101.2 H, Mean Corpuscular Hemoglobin 31.0, Mean Corpuscular Hemoglobin Concent 30.6 L, Red Cell Distribution Width 17.2 H, Calcium Level 9.8 Vital Signs Date Time Temp Pulse Resp B/P (MAP) Pulse Ox O2 Delivery O2 Flow Rate FiO2 7/26/19 14:00 94 Venturi Mask 15.0 50 03/29/19 09:54 98 150/84 03/29/19 08:00 97.1 20 I&O- Last 24 Hours up to 6 AM 03/29/19 06:00 Intake Total 700 ml Output Total 2250 ml Balance -1550 ml CITLALLI ARRIETA DO Mar 29, 2019 15:03 JEFFERY LEACH MD Mar 30, 2019 17:49
[2019-03-29] MEDS ORDERED: PANTOPRAZOLE 40MG INJ (PROTONIX) (C9113) IV ONE (23:15)
[2019-03-30] VITALS (38 sets, daily range): BP systolic 130–177; BP diastolic 72–90; O2SAT 53–96
[2019-03-30 00:04] LABS: INR 1.26; PROTHROMBIN TIME 15.5 SECONDS (11.8-14.0)
[2019-03-30 00:08] LABS: HEMOGLOBIN 16.1 g/dl (13.5-17.5); MEAN CORPUSCULAR HGB CONC 31.6 g/dl (32.0-36.5); MEAN CORPUSCULAR VOLUME 98.1 fl (80.0-96.0); PLATELET COUNT, AUTOMATED 314 10^3/uL (150-450); WHITE BLOOD COUNT 10.7 10^3/uL (4.0-10.0)
[2019-03-30] MEDS: IPRATROPIUM 0.5MG/ALBUTEROL 2.5MG INH SOL UD 3ML (DUONEB)(J7620) NEB SCH ×6 (00:44→20:11)
[2019-03-30] MEDS ORDERED: PANTOPRAZOLE 40MG INJ (PROTONIX) (C9113) IV ONE (03:00)
[2019-03-30] MEDS: PANTOPRAZOLE SODIUM 40 MG in D5W 50 ML IV SCH ×2 (03:44→08:21)
[2019-03-30 05:33] LABS: HEMOGLOBIN 16.3 g/dl (13.5-17.5); MEAN CORPUSCULAR HEMOGLOBIN 31.3 pg (27.0-33.0); MEAN CORPUSCULAR HGB CONC 30.8 g/dl (32.0-36.5); MEAN CORPUSCULAR VOLUME 101.7 fl (80.0-96.0); PLATELET COUNT, AUTOMATED 310 10^3/uL (150-450); RED BLOOD COUNT 5.21 10^6/uL (4.30-6.10); WHITE BLOOD COUNT 10.4 10^3/uL (4.0-10.0)
[2019-03-30] MEDS: SLF 3 ML SYR IV SCH ×3 (06:00→21:41)
[2019-03-30 06:13] LABS: BLOOD UREA NITROGEN 20 MG/DL (7-18); CALCIUM LEVEL 9.2 MG/DL (8.5-10.1); CARBON DIOXIDE LEVEL 46 MEQ/L (21-32); CHLORIDE LEVEL 87 MEQ/L (98-107); CREATININE FOR GFR 0.93 MG/DL (0.70-1.30); GLOMERULAR FILTRATION RATE > 60.0 (>56); GLUCOSE, FASTING 131 MG/DL (70-100); MAGNESIUM LEVEL 2.2 MG/DL (1.8-2.4); POTASSIUM SERUM 4.1 MEQ/L (3.5-5.1); SODIUM LEVEL 138 MEQ/L (136-145)
[2019-03-30] MEDS: HumaLOG INSULIN (NovoLOG) PER UNIT SC SCH ×4 (07:30→21:00)
[2019-03-30] MEDS: NYSTATIN 100,000 UNITS/GM TOPICAL PWD 15 GM TOP SCH ×2 (08:21→20:34)
[2019-03-30] MEDS: METOPROLOL SUCC *XL* 25MG TAB (TopROL *XL*) PO SCH (08:22)
[2019-03-30] MEDS: GABAPENTIN 100 MG CAP PO SCH ×3 (08:22→20:31)
[2019-03-30] MEDS: DOCUSATE SODIUM 100 MG CAP PO SCH ×2 (08:22→20:30)
[2019-03-30] MEDS ORDERED: IPRATROPIUM 0.5MG/ALBUTEROL 2.5MG INH SOL UD 3ML (DUONEB)(J7620) INH ONE (10:15)
[2019-03-30] MEDS ORDERED: KETAMINE HCL 200 MG/20 ML VIAL As Ordered ONE (10:42)
[2019-03-30] MEDS ORDERED: LIDOCAINE 2% INJ 100 MG/5 ML SDV (FOR ANES.) As Ordered ONE (10:42)
[2019-03-30] MEDS ORDERED: PROPOFOL 200 MG/20 ML VIAL As Ordered ONE (11:04)
[2019-03-30] MEDS ORDERED: ISOVUE-370 76% 100ML VIAL (Q9967) As Ordered ONE (11:47)
[2019-03-30] MEDS ORDERED: ONDANSETRON 4MG/2ML VIAL (J2405) IV PRN (12:15)
[2019-03-30] MEDS: SUCRALFATE 1 GM TAB PO SCH ×2 (12:27→20:30)
[2019-03-30] MEDS: PANTOPRAZOLE 40MG TAB (PROTONIX) PO SCH ×2 (12:27→20:30)
--- NOTE | 2019-03-30 12:29 | REP ---
CT of the chest with IV contrast, CT pulmonary artery angiography: Comparison is 10/20/2018. Studies performed for evaluation of previously identified left lower lobe pulmonary artery embolus. There are no emboli in the pulmonary trunk or central pulmonary arteries. The lobe are, segmental and subsegmental pulmonary arteries are suboptimally opacified. There is dependent atelectasis in the posterior inferior lung valdez. There is discoid atelectasis in the right upper lobe posteriorly. There is no mediastinal, hilar or axillary lymph node enlargement. Thoracic aorta is unremarkable. Cardiac size is enlarged. This is unchanged. There is no pericardial effusion. The upper abdomen there is a 2.97 there are ring-shaped gallbladder calculus in the gallbladder fundus. This is unchanged. There is no biliary duct dilatation. There is a 2.7 cm left adrenal nodule, unchanged. There is a left renal upper pole 14 mm simple cyst, unchanged. The visualized upper abdomen is otherwise unremarkable and unchanged. Impression: There are no emboli in the pulmonary trunk or central pulmonary arteries. There is suboptimal opacification of the lumbar, segmental and subsegmental pulmonary arteries. Bilateral dependent atelectasis. Right upper lobe discoid atelectasis. Gallbladder calculus, unchanged. Left renal upper pole cyst, unchanged. Electronically Signed by Leoncio Patterson MD 03/30/2019 12:20 P
[2019-03-30] MEDS ORDERED: CHLORTHALIDONE 12.5MG PER 1/2 TABLET PO SCH (13:45)
[2019-03-30] MEDS: ACETAMINOPHEN TAB 650MG DOSE (2X325MG) PO PRN ×2 (15:23→20:34)
[2019-03-30] MEDS: ANALGESIC BALM CRM 120 GM TOP SCH ×3 (15:24→20:33)
--- NOTE | 2019-03-30 16:36 | REP ---
Bilateral lower extremity deep vein duplex ultrasound: The deep veins demonstrate normal compression, normal Doppler color flow and normal Doppler waveforms with respiration and augmentation from the popliteal veins to the common femoral veins bilaterally . There are bilateral popliteal Fishman's cysts, on the right measuring 6.5 x 2.3 x 2.6 cm and on the left measuring 5.6 x 1.1 x 2.4 cm. Impression: There is no deep vein thrombus in the right or left lower extremities. There are bilateral popliteal fossa Fishman's cyst. Electronically Signed by Leoncio Patterson MD 03/30/2019 04:28 P
--- NOTE | 2019-03-30 17:08 | IPNPDOC ---
Text Note Date of Service The patient was seen on 03/30/19. NOTE SUBJECTIVE: Patient examined at bedside. Began having painless hematemesis o vernight, requiring NGT, npo status, IV Protonix, and GI consult .H&H remain stable. Mr. Montez has no GI complaints. No abd pain, n/v this am, melena or hematochezia. No hx of GI bleed. His breathing is also improving and he is feeling better bck to his chronic 3-4L NC. Is down an additional 1kg from yesterday. Denies chest pain, shortness breath, fevers, chills. OBJECTIVE PHYSICAL EXAMINATION: VITAL SIGNS: Please see below. GENERAL: resting comfortable in bed laying flat , awake alert oriented speaking in complete sentences no acute distress HEENT: Moist mucous membranes difficult to assess CVP due to body habitus. NGT in place with dark maroon output in canister CARDIOVASCULAR: S1 S2 regular no additional heart sounds appreciated. RESPIRATORY: Distant lung sounds given large body habitus, CTAB ABDOMINAL: Obese, Bowel sounds present abdomen soft and non-tender EXTREMITIES: No appreciable edema NEUROLOGICAL: Spontaneously moves all 4 extremities cranial 2 through 12 grossly intact no gross focal deficits appreciated PSYCHOLOGICAL: Poor historian LABORATORY DATA, MICROBIOLOGY: Please see below. IMAGING STUDIES: * 03/28/2019 CXR: No acute cardiopulmonary findings * 03/28/2019 bilateral lower extremity Doppler: No evidence of deep venous thrombosis of the bilateral lower extremity femoral popliteal venous system. Right popliteal cyst measures 5.5 x 3.2 x 1.7 cm and left popliteal cyst measures 3.7 x 2.6 x 1.0 cm. * 03/28/2019 transthoracic echo: 1. Mild concentric left ventricle hypertrophy. Normal regional LV wall motion and wall thickening. Normal left ventricular (LV) systolic function. Left ventricular ejection fraction (LVEF) 65-70% by visual estimate. Grade 1 LV diastolic dysfunction (impaired relaxation filling pattern). 2. Suggestive of moderate elevation of estimated right ventricle systolic pressure. 3. Mild mitral annular calcification. No mitral regurgitation. 4. Very small pericardial effusion measuring 4 mm over the posterior wall of the left ventricle. No diastolic chamber collapse. 5. Normal right ventricle size and systolic function. ASSESSMENT AND PLAN: This is a morbidly obese 59-year-old male, noncompliant with CPAP and medications, with gradually worsening shortness of breath and low er extremity swelling. PROBLEMS: 1. Acute on chronic hypoxic and hypercapnic respiratory failure: Likely 2/2 acutely decompensated diastolic CHF. Echo grade 1 diastolic dysfunction. Patient is on 2-3 L nasal cannula at baseline, requiring 4 L and above during this stay. IV Lasix was stopped given his hematemesis overnight and anticipated EGD for today. He has overall lost about 4 kg since admission. Continue monitoring daily weights and strict I's and O's and 2 L fluid restriction. Patient's shortness of breath is likely also 2/2 his chronic noncompliance with CPAP, obesity hypov entilation syndrome, history of COPD, all exacerbated in the setting of his hypervolemic status. Monitor and consider resuming diuretics once he is stable after EGD. 2. Hematemesis: New onset overnight. H&H stable. Pt has no hx of GI bleed, NSAID use, or recent steroids or hospitalization. He is not on a PPI at home. He underwent EGD this morning with Dr. Rogers, appreciate input. There is reportedly no active bleeding, however some blood found in the esophagus, possibly esophagitis versus traumatic NG tube insertion, and GI recommended stopping anticoagulation. Patient has no GI complaints and is tolerating diet after the EGD. He is normally on Eliquis for his history of PE in October of this year, however he is noncompliant and it is questionable if he was truly taking this. Have followed-up with his CTA of chest & LE Doppler, both which were negative for any current clot. Thus, dc his anticoagulation per GI recommendations. Patient started on PPI and Carafate twice a day. 3. History of PE: Recently diagnosed Oct of this year. Eliquis stopped given hematemesis. See above. Discussed risks, benefits, and alternatives with pt, including chances of recurrent bleed versus thrombosis. He is agreeable to stopping AC and relayed understanding. 4. Hypertension: Uncontrolled, replace home amlodipine with Chlorthalidone-will assist with vol status as well. Continue metoprolol 5. LEA: Patient noncompliant with CPAP. Placed on LEA protocol 6. Bedbugs: Lives at home with his friend, sleeps on couch, stated there are bedbugs. Placed on contact precautions 7. Hyperlipidemia: Not on any meds 8. Morbid obesity: Complicates care 9. Medical noncompliance: Patient counseled in depth on importance of following with her regular providers and taking all meds and using CPAP as prescribed at home. 10. NIDDM 2: A1c 6.8 February of this year. Patient not on any medications. On insulin sliding scale inpatient 11. Tobacco use: Patient counseled on smoking cessation. Likely contributing to his poor respiratory status at baseline. 12. COPD: Continue regular home nebs and inhalers DVT prophylaxis: mechanical. No AC given acute bleed DISPOSITION: monitor H&H & vol status. PFS assisting with placement. PT & OT. I saw and evaluated the patient. I agree with the findings and plan of care as documented in the above note VS,Fishbone, I+O VS, Fishbone, I+O Laboratory Tests 03/29/19 23:35 Red Blood Count 5.20, Mean Corpuscular Volume 98.1 H, Mean Corpuscular Hemoglobin 31.0, Mean Corpuscular Hemoglobin Concent 31.6 L, Red Cell Distribution Width 16.8 H 03/30/19 05:19 Red Blood Count 5.21, Mean Corpuscular Volume 101.7 H, Mean Corpuscular Hemoglobin 31.3, Mean Corpuscular Hemoglobin Concent 30.8 L, Red Cell Distribution Width 16.9 H, Calcium Level 9.2 Vital Signs Date Time Temp Pulse Resp B/P (MAP) Pulse Ox O2 Delivery O2 Flow Rate FiO2 03/30/19 14:30 97.0 93 22 163/72 (102) 92 03/30/19 13:00 Nasal Cannula 4.0 03/30/19 07:00 50 I&O- Last 24 Hours up to 6 AM 03/30/19 06:00 Intake Total 1100 ml Output Total 3300 ml Balance -2200 ml CITLALLI ARRIETA DO Mar 30, 2019 15:14 JEFFERY LEACH MD Apr 01, 2019 16:35
[2019-03-31] VITALS (25 sets, daily range): BP systolic 120–149; BP diastolic 67–87; O2SAT 47–96
[2019-03-31] MEDS: IPRATROPIUM 0.5MG/ALBUTEROL 2.5MG INH SOL UD 3ML (DUONEB)(J7620) NEB SCH ×7 (01:44→23:54)
[2019-03-31 03:06] LABS: ABG BASE EXCESS 18.4 (-2.0-2.0); ABG HCO3 50.9 MEQ/L (22.0-26.0); ABG PARTIAL PRESSURE O2 75.6 mmHg (75.0-100.0); ABG STANDARD HCO3 42.7 MEQ/L (22.0-26.0); ABG pH (ARTERIAL) 7.326 UNITS (7.350-7.450)
[2019-03-31 03:08] LABS: ABG PARTIAL PRESSURE CO2 99.7 mmHg (35.0-45.0)
[2019-03-31 04:55] LABS: HEMATOCRIT 51.2 % (42.0-52.0); HEMOGLOBIN 15.7 g/dl (13.5-17.5); MEAN CORPUSCULAR HGB CONC 30.7 g/dl (32.0-36.5); PLATELET COUNT, AUTOMATED 315 10^3/uL (150-450); RED BLOOD COUNT 5.07 10^6/uL (4.30-6.10); WHITE BLOOD COUNT 9.4 10^3/uL (4.0-10.0)
[2019-03-31 05:11] LABS: ABG BASE EXCESS 19.2 (-2.0-2.0); ABG O2 SATURATION 87.1 % (95.0-99.0); ABG PARTIAL PRESSURE O2 58.5 mmHg (75.0-100.0); ABG STANDARD HCO3 43.3 MEQ/L (22.0-26.0); ABG TOTAL CO2 55.1 MEQ/L (22.0-29.0); ABG pH (ARTERIAL) 7.329 UNITS (7.350-7.450)
[2019-03-31 05:12] LABS: ABG PARTIAL PRESSURE CO2 101.1 mmHg (35.0-45.0)
[2019-03-31 05:45] LABS: BLOOD UREA NITROGEN 22 MG/DL (7-18); CALCIUM LEVEL 9.8 MG/DL (8.5-10.1); CARBON DIOXIDE LEVEL 50 MEQ/L (21-32); CHLORIDE LEVEL 85 MEQ/L (98-107); CREATININE FOR GFR 0.97 MG/DL (0.70-1.30); GLOMERULAR FILTRATION RATE > 60.0 (>56); GLUCOSE, FASTING 109 MG/DL (70-100); MAGNESIUM LEVEL 2.4 MG/DL (1.8-2.4); POTASSIUM SERUM 4.4 MEQ/L (3.5-5.1); SODIUM LEVEL 137 MEQ/L (136-145)
[2019-03-31] MEDS: SLF 3 ML SYR IV SCH ×3 (06:22→21:23)
[2019-03-31] MEDS: HumaLOG INSULIN (NovoLOG) PER UNIT SC SCH ×4 (07:30→20:45)
[2019-03-31] MEDS: METOPROLOL SUCC *XL* 25MG TAB (TopROL *XL*) PO SCH (08:37)
[2019-03-31] MEDS: PANTOPRAZOLE 40MG TAB (PROTONIX) PO SCH ×2 (08:37→20:43)
[2019-03-31] MEDS: DOCUSATE SODIUM 100 MG CAP PO SCH ×2 (08:37→20:43)
[2019-03-31] MEDS: GABAPENTIN 100 MG CAP PO SCH ×3 (08:37→20:43)
[2019-03-31] MEDS: SUCRALFATE 1 GM TAB PO SCH ×2 (08:37→20:43)
[2019-03-31] MEDS: NYSTATIN 100,000 UNITS/GM TOPICAL PWD 15 GM TOP SCH ×2 (08:38→21:22)
[2019-03-31] MEDS: ANALGESIC BALM CRM 120 GM TOP SCH ×4 (08:38→20:43)
--- NOTE | 2019-03-31 09:58 | IPNPDOC ---
Date Seen The patient was seen on 03/31/19. Progress Note OVERNIGHT EVENTS: The patient reportedly became more hypoxic and the liquor grinding mill operator was consulted patient had increasing O2 requirements. SUBJECTIVE: Patient is once again awake alert and oriented at this time of my visit. He denies any further bleeding he tells me he tolerated diet he is not had any noticeable bleeding and asking when he is going home. Otherwise patient denies chest pressure he denies feeling short of breath fevers chills nausea or diarrhea OBJECTIVE PHYSICAL EXAMINATION: VITAL SIGNS: Please see below. GENERAL: Morbidly obese man lying on his right side comfortably in bed flat he does not appear dyspneic he is able to answer questions appropriately although he is hard of hearing awake alert oriented no acute distress HEENT: Moist mucous membranes difficult to assess CVP due to body habitus. CARDIOVASCULAR: S1 S2 regular no additional heart sounds appreciated. RESPIRATORY: Distant lung sounds given large body habitus, CTAB ABDOMINAL: Obese, Bowel sounds present abdomen soft and non-tender EXTREMITIES: No appreciable edema NEUROLOGICAL: Spontaneously moves all 4 extremities cranial 2 through 12 grossly intact no gross focal deficits appreciated PSYCHOLOGICAL: Appropriate LABORATORY DATA, MICROBIOLOGY: Please see below. IMAGING STUDIES: * 03/28/2019 CXR: No acute cardiopulmonary findings * 03/28/2019 bilateral lower extremity Doppler: No evidence of deep venous thrombosis of the bilateral lower extremity femoral popliteal venous system. Right popliteal cyst measures 5.5 x 3.2 x 1.7 cm and left popliteal cyst measures 3.7 x 2.6 x 1.0 cm. * 03/28/2019 transthoracic echo: 1. Mild concentric left ventricle hypertrophy. Normal regional LV wall motion and wall thickening. Normal left ventricular (LV) systolic function. Left ventricular ejection fraction (LVEF) 65-70% by visual estimate. Grade 1 LV diastolic dysfunction (impaired relaxation filling pattern). 2. Suggestive of moderate elevation of estimated right ventricle systolic pressure. 3. Mild mitral annular calcification. No mitral regurgitation. 4. Very small pericardial effusion measuring 4 mm over the posterior wall of the left ventricle. No diastolic chamber collapse. 5. Normal right ventricle size and systolic function. ASSESSMENT AND PLAN: This is a morbidly obese 59-year-old male with acute decompensated diastolic congestive heart failure PROBLEMS: 1. Acute on chronic hypoxic and hypercapnic respiratory failure: Secondary to acutely decompensated diastolic congestive heart failure. He had several days of progressively worsening dyspnea necessitating him to sleep on the couch upright. He was acutely dyspneic when he presented 24 hours of aggressive IV diuresis he had significant improvement of symptoms or he is able to lay flat speak more comfortably and no longer dyspneic. Since hospitalized he has been noted to have significant nocturnal O2 desaturations. He initially told me he did have obstructive sleep apnea and elected to not wear her mask at home however today he changes his story tells me that he has never been diagnosed with sleep apnea does not have a mask at home. I do not have any records on file Dr. Chatman of critical care involved with the case then may have further records in the clinic where he has had previous primary function testing completed. I suspected benefit from auto CPAP for BiPAP at night given the severity of his nocturnal desaturations. I suspect he also has a significant element of obesity hypoventilation syndrome in the setting of his baseline chronic hypoxic respiratory failure necessitating 2-3 L related to his obstructive disease. Pulmonary help is greatly appreciated 2. Hematemesis: Patient was diagnosed with a pulmonary embolism earlier this year is unclear if he was at all compliant with anticoagulation. I did discuss the case with pulmonary this morning and although his CTA does not reveal any PE and neither does his lower extremity duplex his risk factors being morbid obesity and sedentary lifestyle are fixed and he would likely benefit from an IVC filter which we will attempt to get placed within the next 48-72 hours. He did undergo an arthroscopic evaluation by Dr. Rogers yesterday no report is available for the time being he remains on Protonix and Carafate no further evidence of bleeding his hemoglobin appears to be relatively stable he is tolerating a diet we'll withhold further anticoagulation at this time. 3. History of PE: Recently diagnosed Oct of this year. As outlined above 4. Hypertension: Continue metoprolol fairly well-controlled continue to monitor for the time being 5. Suspected LEA: Pulmonary input appreciated 6. Bedbugs: Lives at home with his friend, sleeps on couch, stated there are bedbugs. Placed on contact precautions, PFS consult poor living situation the necessity for help at home 7. Morbid obesity: Complicates care 8. Medical noncompliance: Complicates care. Patient expresses wishes to go home chemistries understanding of the necessity of being compliant with medical care but shows little interest in doing so beyond his current hospitalization when he is being honest 9. NIDDM 2: A1c 6.8 February of this year. Patient not on any medications. On insulin sliding scale while inpatient 10. Tobacco use: Patient counseled on smoking cessation. Likely contributing to his poor respiratory status at baseline regarding his obstructive disease. 11. COPD: Continue regular home nebs and inhalers baseline is 2-3 L of O2 via nasal cannula 12. Metabolic alkalosis. Combination of compensation for respiratory acidosis as well as aggressive diuresis at the time of his presentation which has since been discontinued patient appears be mentating quite well this time DVT prophylaxis: mechanical. No AC given acute bleed DISPOSITION: PFS assisting with services PT & OT, pending improvement in his re spiratory status VS, I&O, 24H, Fishbone Vital Signs/I&O Vital Signs Date Time Temp Pulse Resp B/P (MAP) Pulse Ox O2 Delivery O2 Flow Rate FiO2 03/31/19 08:37 84 148/79 03/31/19 08:00 97.1 18 96 03/31/19 07:05 30.0 100 03/31/19 07:04 Nasal Cannula I&O- Last 24 Hours up to 6 AM 03/31/19 05:59 Intake Total 1032 ml Output Total 1725 ml Balance -693 ml Laboratory Data 24H LABS Laboratory Tests 2 03/30/19 10:50: Bedside Glucose (Misc Panel) 147H 03/30/19 12:39: Bedside Glucose (Misc Panel) 140H 03/30/19 16:46: Bedside Glucose (Misc Panel) 158H 03/30/19 20:26: Bedside Glucose (Misc Panel) 191H 03/31/19 03:02: Blood Gas Bicarbonate Standard 42.7H, Arterial Blood pH 7.326L, Arterial Blood Partial Pressure CO2 99.7*H, Arterial Blood Partial Pressure O2 75.6, Arterial Blood Total CO2 54.0H, Arterial Blood HCO3 50.9H, Arterial Blood Base Excess 18.4H, Arterial Blood Oxygen Saturation 94.0L 03/31/19 04:43: Nucleated Red Blood Cells % (auto) 0.0, Anion Gap 2L, Glomerular Filtration Rate > 60.0, Blood Urea Nitrogen 22H, Creatinine 0.97, Sodium Level 137, Potassium Level 4.4, Chloride Level 85L, Carbon Dioxide Level 50H, Calcium Level 9.8, Magnesium Level 2.4 03/31/19 05:05: Blood Gas Bicarbonate Standard 43.3H, Arterial Blood pH 7.329L, Arterial Blood Partial Pressure CO2 101.1*H, Arterial Blood Partial Pressure O2 58.5L, Arterial Blood Total CO2 55.1H, Arterial Blood HCO3 52.0H, Arterial Blood Base Excess 19.2H, Arterial Blood Oxygen Saturation 87.1L CBC/BMP Laboratory Tests 03/31/19 04:43 Red Blood Count 5.07, Mean Corpuscular Volume 101.0 H, Mean Corpuscular Hemoglobin 31.0, Mean Corpuscular Hemoglobin Concent 30.7 L, Red Cell Distribution Width 16.4 H, Calcium Level 9.8 JEFFERY LEACH MD Mar 31, 2019 09:58
[2019-03-31] MEDS ORDERED: FUROSEMIDE 40 MG TAB PO SCH (10:41)
[2019-03-31] MEDS ORDERED: ALBUTEROL 90 MCG/ACT 8GM HFA INHALER INH PRN (10:45)
[2019-03-31] MEDS: methylPREDNISolone INJ 125 MG/2 ML VIAL (J2930) IV SCH ×2 (11:34→22:25)
[2019-03-31] MEDS ORDERED: AcetaZOLAMIDE 500MG INJECTION (J1120) IV STA (13:56)
[2019-03-31 15:22] LABS: ABG BASE EXCESS 19.1 (-2.0-2.0); ABG HCO3 51.1 MEQ/L (22.0-26.0); ABG O2 SATURATION 96.2 % (95.0-99.0); ABG PARTIAL PRESSURE O2 86.7 mmHg (75.0-100.0); ABG STANDARD HCO3 43.6 MEQ/L (22.0-26.0); ABG pH (ARTERIAL) 7.352 UNITS (7.350-7.450)
[2019-03-31 15:25] LABS: ABG PARTIAL PRESSURE CO2 94.2 mmHg (35.0-45.0)
[2019-04-01] VITALS (17 sets, daily range): BP systolic 125–180; BP diastolic 67–93; O2SAT 90–93
[2019-04-01] MEDS: IPRATROPIUM 0.5MG/ALBUTEROL 2.5MG INH SOL UD 3ML (DUONEB)(J7620) NEB SCH ×5 (04:11→20:00)
[2019-04-01] MEDS: SLF 3 ML SYR IV SCH ×3 (05:04→22:01)
[2019-04-01 05:16] LABS: HEMATOCRIT 50.9 % (42.0-52.0); HEMOGLOBIN 15.8 g/dl (13.5-17.5); MEAN CORPUSCULAR HEMOGLOBIN 30.9 pg (27.0-33.0); MEAN CORPUSCULAR VOLUME 99.6 fl (80.0-96.0); PLATELET COUNT, AUTOMATED 306 10^3/uL (150-450); RED BLOOD COUNT 5.11 10^6/uL (4.30-6.10); WHITE BLOOD COUNT 9.4 10^3/uL (4.0-10.0)
[2019-04-01 05:32] LABS: BLOOD UREA NITROGEN 26 MG/DL (7-18); CALCIUM LEVEL 10.6 MG/DL (8.5-10.1); CARBON DIOXIDE LEVEL 42 MEQ/L (21-32); CHLORIDE LEVEL 89 MEQ/L (98-107); CREATININE FOR GFR 0.92 MG/DL (0.70-1.30); GLOMERULAR FILTRATION RATE > 60.0 (>56); GLUCOSE, FASTING 146 MG/DL (70-100); MAGNESIUM LEVEL 2.3 MG/DL (1.8-2.4); POTASSIUM SERUM 4.1 MEQ/L (3.5-5.1); SODIUM LEVEL 135 MEQ/L (136-145)
[2019-04-01 06:06] LABS: ABG pH (ARTERIAL) 7.428 UNITS (7.350-7.450)
[2019-04-01 06:07] LABS: ABG BASE EXCESS 15.3 (-2.0-2.0); ABG HCO3 43.8 MEQ/L (22.0-26.0); ABG O2 SATURATION 90.1 % (95.0-99.0); ABG PARTIAL PRESSURE O2 59.9 mmHg (75.0-100.0); ABG STANDARD HCO3 39.1 MEQ/L (22.0-26.0); ABG TOTAL CO2 45.9 MEQ/L (22.0-29.0)
[2019-04-01 06:11] LABS: ABG PARTIAL PRESSURE CO2 67.8 mmHg (35.0-45.0)
--- NOTE | 2019-04-01 07:52 | CR ---
DATE OF CONSULTATION: 03/30/2019 This is a 59-year-old white male who he is being seen by gastrointestinal (GI) for sudden onset of hematemesis. The patient apparently was admitted on 03/28/2019 for evaluation of increasing shortness of breath. The patient has multiple medical problems including reflux, chronic obstructive pulmonary artery disease (COPD), diabetes mellitus, history of a pulmonary embolism, chronic back pain, chronic alcoholism, hypertension, hyperlipidemia, seizure disorder, peripheral neuropathy. The patient is noncompliant to his medications. Patient is sedentary. The patient's medicines at home include: Amlodipine, Eliquis 5 mg day, doxycycline, Lasix, gabapentin, Neurontin, metoprolol, nicotine patch. As needed medicines are ProAir and Naproxen or Aleve for as needed pain. ALLERGIES: Apparently to PENICILLIN. PAST MEDICAL HISTORY: As above. SOCIAL HISTORY: Cigarettes, the patient denies. Alcohol, the patient denies. REVIEW OF SYSTEMS: Twelve point review of systems noncontributory. PHYSICAL EXAMINATION: GENERAL: Alert, angry white male in no acute distress. The patient has an nasogastric (NG) tube. His abdomen is globose, nontender. No masses, guarding, or hepatosplenomegaly. Bowel sounds positive. LABORATORY STUDIES ON ADMISSION: Included: a white count 10,700, hemoglobin and hematocrit 16.4 and 52.0. Patient's counts on 03/30 were essentially the same with no interval change. The patient was seen by GI for an apparent history of hematemesis with an NG tube being place which apparently 1 liter of blood and clots was apparently evacuated from the patient's stomach. No further episodes of active bleeding at the time of this dictation. ANALYSIS: Apparent upper GI bleed. The patient is requiring anticoagulation for apparent pulmonary embolism. PLAN: Will be to set up the patient for upper endoscopy.
--- NOTE | 2019-04-01 07:53 | CR ---
DATE OF CONSULTATION: 03/31/2019 HISTORY OF PRESENT ILLNESS: The patient is a 59-year-old male with a past medical history of chronic obstructive pulmonary disease (COPD) with chronic hypoxemic respiratory failure on nasal cannula oxygen supplementation 2 to 3 liters at baseline, gastroesophageal reflux disease (GERD), diabetes, chronic back pain, hypertension and hyperlipidemia, previous pulmonary emboli (PE) earlier this year, history of alcoholism, seizure disorder, morbid obesity who presented initially with complaints of weakness and shortness of breath. The patient has also been reportedly less mobile and having worsening functional status. His family had brought him into the hospital as they had been unable to move him from the sofa and he was not ambulatory. Usually he will walk with the aid of a walker. On admission, the patient was found to have signs of fluid overload with increased lower extremity edema and anasarca as well as elevated BNP. He was given Lasix for IV diuretics, as well as started on oxygen supplementation. His hemoglobin on admission was elevated suggesting a component of chronic hypoxemia, most likely obstructive sleep apnea given his body habitus. The patient did respond to the IV Lasix. However, his hospital course was then complicated with episode of coffee-ground emesis after he was started on his home anticoagulation. The patient's anticoagulation was held and he was started on a proton pump inhibitor (PPI). He had an esophagogastroduodenoscopy (EGD) done yesterday which reportedly did not show any active bleeding, but did show possible esophagitis. The patient had reportedly been diagnosed with sleep apnea; however on further questioning he denies a diagnosis of sleep apnea and denies having C-PAP machine or BiPap machine at home. During this hospitalization, he has been noted to have significant desaturations while wearing his nasal cannula oxygen supplementation. Overnight again while the patient was sleeping, he was noted to have desaturation and was placed on high-flow nasal cannula oxygen. He denied having any increasing shortness of breath. No coughing. No wheezing. No chest pain during these episodes. Of note, the patient's arterial blood gas (ABG) on admission did show evidence of chronic hypercarbic respiratory failure and he has had increasing bicarbonate during his hospitalization likely due to his diuresis. PAST MEDICAL AND SURGICAL HISTORY LIST THE FOLLOWIN. Chronic obstructive pulmonary disease (COPD) 2. Pulmonary emboli (PE). 3. Chronic hypoxemic respiratory failure on nasal cannula oxygen supplementation. 4. Diabetes with peripheral neuropathy. 5. Chronic pain. 6. Gastroesophageal reflux disease (GERD) 7. chronic alcohol use. 8. Hypertension. 9. Hyperlipidemia. 10. Current active smoker. 11. Seizure disorder. 12. Left hand surgery. 13. Diastolic congestive heart failure (CHF). ALLERGIES: PENICILLIN. HOME MEDICATIONS: Amlodipine, Eliquis, Breo, Incruse, Lasix, gabapentin, metoprolol, nicotine patch, albuterol as needed, DuoNebs as needed. SOCIAL HISTORY: Current active smoker, currently smoking a few cigarettes daily, previously had been pack a day or more for many years. Drinks beer with a previous history of alcohol abuse. FAMILY HISTORY: Noncontributory. PHYSICAL EXAMINATION: VITALS: Temperature 96.8, pulse 93, respirations 24, blood pressure 149/87, oxygen saturation 92% on 100% FiO2 at the 20-30 liters per minute, high-flow nasal cannula and 1 liter out, 2.3 liters net negative 1.3 liters. GENERAL: The patient is morbidly obese, is lying in the bed in no acute distress. He is drowsy but is arousable and able to answer questions appropriately. He does have some garbled speech which appears to be at his baseline. HEENT: Normocephalic, atraumatic. Pupils are reactive to light bilaterally. Moist mucous membranes. Neck is supple. Unable to appreciate jugular venous distension (JVD) due to body habitus. CARDIOVASCULAR: Regular rate and rhythm. Normal S1-S2. Distant heart sounds. Unable to appreciate murmurs. RESPIRATORY: Diminished breath sounds bilaterally with some faint expiratory wheezing and some coughing during exam. ABDOMEN: Obese, is nontender, nondistended. EXTREMITIES: Some mild pitting edema bilaterally improved from admission reportedly. Some chronic venous stasis changes noted. LABORATORY DATA: White blood count (WBC) 9.80, hemoglobin is 15.7, platelets 315. Chemistry: Sodium is 137, potassium 4.4, chloride is 85, bicarbonate 50, BUN 22, creatinine 0.97, glucose is 109. Arterial blood gas(ABG): pH 7.329, pCO2 of 101.1, pO2 of 58.5. IMAGES: CT angiogram 03/30/2019 showed no evidence of pulmonary emboli (PE). There are areas of atelectasis bilaterally in the lung valdez and the area of discoid atelectasis in the right upper lobes posteriorly. There are some pleural thickening areas bilaterally which appear unchanged. There is no significant mediastinal adenopathy. The heart is enlarged. There is no pericardial effusion. There is a large gallbladder calculus in the gallbladder fundus which is unchanged from previous with no evidence of biliary duct dilation. Lower extremity duplex: Bilateral popliteal Fishman's cyst, but no evidence of deep vein thrombosis (DVT) in the lower extremities. Echocardiogram on in admission shows normal ejection fraction with evidence of diastolic dysfunction and moderate pulmonary hypertension. ASSESSMENT/PLAN: Mr. Montez is a 59-year-old male with a history of morbid obesity, chronic obstructive pulmonary disease (COPD), chronic hypoxemic respiratory failure on nasal cannula oxygen supplementation, pulmonary emboli (PE), diabetes, chronic back pain, hypertension, hyperlipidemia, seizure disorder, history of noncompliance who presented with weakness and worsening functional status. The patient was found to have acute on chronic diastolic congestive heart failure (CHF) and was started on IV diuretics with appropriate diuresis. He was also started on anticoagulation for his recent PE and was noted to have coffee-ground emesis for which he had a recent esophagogastroduodenoscopy (EGD), which showed possible esophagitis, but no active bleeding. He was also noted to have episodes of desaturation nocturnally and suspect he has a diagnosis of obstructive sleep apnea (LEA) and obesity hypoventilation syndrome (OHS) given his morbid obesity and evidence of chronic hypercarbic respiratory failure and chronic hypoxemic respiratory failure. The patient's ABG shows compensation but worsening hypercarbia likely in the setting of his metabolic alkalosis secondary to diuresis and his chronic respiratory acidosis. The patient is on high-flow nasal cannula oxygen supplementation and he does have improvement in his saturations, but suspect he will need nocturnal BiPap for his un-diagnosed LEA/OHS. - The patient has evidence of some wheezing on examination this morning. Initially was likely in the setting of his fluid overload; but given his history of COPD and continue wheezing despite adequate diuresis, suspect he may have a component of COPD exacerbation. Therefore, will start him on Solu-Medrol 60 mg every 12 for an acute COPD exacerbation and continue with his DuoNebs every 4 hours. - Will also start the patient on BiPap for his untreated LEA/OHS. Will start him on settings of 20/10 with a respiratory rate a 14 and FiO2 of 50% and continue to wean down his FiO2 as tolerated to maintain oxygen saturation of 88-92%. Will follow up a repeat arterial blood gas (ABG) after 2 hours on the BiPap. - The patient does have worsening metabolic alkalosis in the setting of his diuretics. Will give him a dose of acetazolamide 500 mg IV and followup his repeat ABG. - Continue with by mouth Lasix as per his primary team and continue with the rest of his antihypertensive medications and beta kiki as per primary team. - Will wean the patient to a nasal cannula oxygen supplementation during the day and continue with the BiPap while sleeping and at night. Once we have adjusted his settings, can likely transition him to a tabletop later tomorrow night. - Given his history of recent PE and ongoing risk factors including his morbid obesity and poor mobility, as he is unable to get anticoagulation given his recent upper gastrointestinal (GI) bleed, would have him evaluated for placement of an IVC filter by interventional radiology. Deep vein thrombosis (DVT) prophylaxis with SCDs. Gastrointestinal (GI) prophylaxis Full code. Total critical care time spent not including procedures approximately 1 hour and 45 minutes. MTDD
[2019-04-01] MEDS: TIOTROPIUM INHALER/CAPSULE (SPIRIVA) INH SCH (08:00)
--- NOTE | 2019-04-01 08:22 | ROOR ---
Patient Name: Hernan Montez Procedure Date: 03/30/2019 9:13 AM Date of : 1960 Age: 59 Gender: Male Note Status: Cracker Off Override Procedure: Upper GI endoscopy Indications: Coffee-ground emesis, Hematemesis Providers: Jone Rogers MD Referring MD: 1. No Referring Physician 1. No Referring Physician, Admin. Requesting Provider: Medicines: Monitored Anesthesia Care Complications: No immediate complications. Procedure: Pre-Anesthesia Assessment: - The heart rate, respiratory rate, oxygen saturations, blood pressure, adequacy of pulmonary ventilation, and response to care were monitored throughout the procedure. The Endoscope was introduced through the mouth, and advanced to the second part of duodenum. The upper GI endoscopy was accomplished without difficulty. The patient tolerated the procedure well. Findings: The Z-line was irregular and was found 35 cm from the incisors. Mildly severe esophagitis with bleeding was found 35 cm from the incisors. No other significant abnormalities were identified in a careful examination of the stomach. The exam of the duodenum was otherwise normal. Impression: - Z-line irregular, 35 cm from the incisors. - Mildly severe reflux esophagitis. - No specimens collected. - The examination was otherwise normal. Recommendation: - Patient has a contact number available for emergencies. The signs and symptoms of potential delayed complications were discussed with the patient. Return to normal activities tomorrow. Written discharge instructions were provided to the patient. - High fiber diet. - Discharge patient to home. - Follow an antireflux regimen. - Continue present medications. - Return to referring physician. - The findings and recommendations were discussed with the patient's family. Jone Rogers MD Jone Rogers MD 03/30/2019 11:30:34 AM Electronically signed by Jone Rogers MD Number of Addenda: 0 Note Initiated On: 03/30/2019 9:13 AM Estimated Blood Loss: Estimated blood loss: none.
[2019-04-01] MEDS: ANALGESIC BALM CRM 120 GM TOP SCH ×4 (09:00→20:06)
[2019-04-01] MEDS: GABAPENTIN 100 MG CAP PO SCH ×3 (09:00→20:05)
[2019-04-01] MEDS: ADVAIR HFA 230/21MCG INHALER INH SCH ×2 (09:00→20:08)
[2019-04-01] MEDS: NYSTATIN 100,000 UNITS/GM TOPICAL PWD 15 GM TOP SCH ×2 (09:00→20:06)
--- NOTE | 2019-04-01 09:28 | CCN ---
DATE: 04/01/2019 PULMONARY CRITICAL CARE NOTE: Mr. Montez is seen in the intensive care unit (ICU). He has been on bilevel positive airway pressure (BiPAP) overnight and currently is getting oxygen by nasal cannula but is hypoxic on oxygen by nasal cannula. He overall states that he is feeling better and is asking when he can go home. He denies any current shortness of breath. Denies any chest pain. He had some hematemesis over the weekend and had an upper endoscopy with Dr. Rogers that showed esophagitis. He has not had any further hematemesis. He has been afebrile. Because of his episodes of hypoxia, pulmonary critical care was asked to see the patient and help manage BiPAP. PHYSICAL EXAMINATION Vital signs: Temperature 96.9, pulse 73, respiratory rate 24, blood pressure 151/86, pulse oximetry 93% on BiPAP 20/10 with a rate of 14 and FiO2 of 45. Oxygen saturation did decrease into the low to mid 80s when the patient was placed on nasal cannula even up to 8 liters. Intake and output: Intake 560, output 1405 with a balance of -845. The patient is down about 5.5 liters over the course of his hospitalization. General: Patient is alert and oriented. He speaks in complete sentences. He is somewhat hard of hearing. He is morbidly obese. HEENT: Head is normocephalic, atraumatic. Pupils are reactive to light. Moist mucous membranes. Neck: Neck is supple. No cervical lymphadenopathy. No obvious jugular venous distention (JVD) secondary to body habitus. Trachea is midline. Pulmonary: Diminished breath sounds but clear to auscultation bilaterally. No wheezes, rales, rhonchi, or crackles. No accessory muscle use. Heart: Regular rate and rhythm. S1, S2. Heart sounds are distant. No obvious murmurs. Abdomen: Positive bowel sounds. Soft. Nontender. Obese. Extremities: The patient has trace lower extremity edema and sacral edema. Skin: Skin is warm and dry. Neurologic: Nonfocal. LABS: ABG pH 7.428, pCO2 67.8, pO2 59.9, HCO3 43.8. WBC 9.4, hemoglobin 15.8, hematocrit 50.9, , platelets 306. Sodium 135, potassium 4.1, chloride 89, carbon dioxide 42, BUN 26, creatinine 0.92, glucose 146, calcium 10.6, magnesium 2.3. Chest CT from 03/30/[address] Niño and myself and does show cardiomegaly. Small pericardial effusion noted. Increased vascular markings. ASSESSMENT AND PLAN: 1. Acute on chronic respiratory failure secondary to congestive heart failure and likely obesity hypoventilation syndrome. The patient has been getting BiPAP with sleep and has been tried out on oxygen by nasal cannula today. However with his oxygen desaturations, we will place him on high-flow oxygen and continue to monitor closely. It is likely that he has obesity hypoventilation syndrome. The patient also has chronic obstructive pulmonary disease (COPD). It is unclear how much the patient will improve even with the BiPAP given obesity hypoventilation syndrome. Will continue to monitor. 2. Congestive heart failure. The patient is being managed by the hospitalist team for congestive heart failure. He had been on diuretics and has been diuresing. We will defer to hospitalist team for continued diuretic treatment. 3. History of pulmonary embolism (PE). The patient had been on anticoagulation. This was held due to hematemesis. Upper endoscopy did show esophagitis. Anticoagulation was stopped. There is discussion of inferior vena cava (IVC) filter placement. 4. Chronic obstructive pulmonary disease. The patient is currently not on any inhaled respiratory therapy. He had been on Incruse at one point as an outpatient, although it is unclear if he has been taking this compliantly. I will place him on anticholinergic therapy as well as an inhaled corticosteroid. We will discontinue his Solu-Medrol given his esophagitis and his volume overload. Continue to monitor closely.
[2019-04-01] MEDS: METOPROLOL SUCC *XL* 25MG TAB (TopROL *XL*) PO SCH (10:01)
[2019-04-01] MEDS: SUCRALFATE 1 GM TAB PO SCH ×2 (10:02→20:05)
[2019-04-01] MEDS: DOCUSATE SODIUM 100 MG CAP PO SCH ×2 (10:02→20:05)
[2019-04-01] MEDS: PANTOPRAZOLE 40MG TAB (PROTONIX) PO SCH ×2 (10:02→20:05)
[2019-04-01] MEDS: HumaLOG INSULIN (NovoLOG) PER UNIT SC SCH ×4 (10:03→20:46)
--- NOTE | 2019-04-01 13:35 | IPNPDOC ---
Subjective Date Seen The patient was seen on 04/01/19. Subjective Chief Complaint/HPI Pt is laying in bed with HOB elevated. He states he is feeling well and wondering when he can go home. He reports his breathing has continued to improve since yesterday after using the BiPAP overnight. He continues on 10 liters on high flow nasal cannula with oxygen saturations 85-90% this morning. He states at home he only uses 2-4 liters overnight for oxygen. He denies any new complaints. He has not had further hematemesis. Constitutional: Denies: Chills, Fever, Night Sweats ENT: Denies: Head Aches Pulmonary: Denies: Dyspnea, Cough Cardiovascular: Denies: Chest Pain, Palpitations, Orthopnea, Lt Headedness Gastrointestinal: Denies: Nausea, Vomiting, Abdominal Pain, Diarrhea, Constipation Objective Physical Examination General Exam: Positive: Alert, Cooperative Eye Exam: Positive: PERRLA, Conjunctiva & lids normal; Negative: Sclera icteric ENT Exam: Positive: Atraumatic, Mucous membr. moist/pink Neck Exam: Positive: Supple; Negative: JVD Chest Exam: Positive: Clear to auscultation (decreased breath sounds bilaterally secondary to body habitus) Heart Exam: Positive: Rate Normal, Normal S1, Normal S2; Negative: Murmurs, Rubs Abdomen Exam: Positive: Normal bowel sounds, Soft; Negative: Tenderness Extremity Exam: Positive: Edema, Normal pulses Skin Exam: Positive: Other skin issue (, chronic venous status changes in both legs) Neuro Exam: Positive: Normal Speech Psych Exam: Positive: Mental status NL, Mood NL, Oriented x 3 Assessment /Plan Assessment This is a morbidly obese 59-year-old male with acute decompensated diastolic congestive heart failure and acute hypercapnic respiratory failure Plan/VTE VTE Prophylaxis Ordered?: Yes Plan 1. Acute on chronic hypoxic and hypercapnic respiratory failure: Secondary to acutely decompensated diastolic congestive heart failure. He had several days of progressively worsening dyspnea necessitating him to sleep on the couch upright. He was acutely dyspneic when he presented 24 hours of aggressive IV diuresis he had significant improvement of symptoms or he is able to lay flat speak more comfortably and no longer dyspneic. Since hospitalized he has been noted to have significant nocturnal O2 desaturations. He has never been diagnosed with sleep apnea does not have a mask at home. Suspect he also has a significant element of obesity hypoventilation syndrome in the setting of his baseline chronic hypoxic respiratory failure necessitating 2-4 L at night related to his obstructive disease. He was on BiPAP overnight with improvement of his pCO2 on ABG this morning. He will require a sleep study when discharged. He continues to require high flow NC at 10 L today with his O2 saturations remaining below 90%. Will continue to wean his oxygen supplementation as tolerated. 2. Hematemesis: He did undergo an arthroscopic evaluation by Dr. Rogers yesterday no report is available for the time being he remains on Protonix and Carafate no further evidence of bleeding his hemoglobin appears to be relatively stable he is tolerating a diet we'll withhold further anticoagulation at this time. 3. History of PE: Patient was diagnosed with a pulmonary embolism in October 2018. It is unclear if he was at all compliant with anticoagulation. Although his CTA does not reveal any PE and his lower extremity duplex does not reveal any DVTs, his risk factors being morbid obesity and sedentary lifestyle are fixed and he would likely benefit from an IVC filter. Will call Dr. Barnett to consult for filter placement. 4. Hypertension: Continue metoprolol and continue to monitor. 5. Suspected LEA: Currently on BiPAP at night. Will need a sleep study on discharge. 6. COPD: Appreciate input by information systems security developer. Continue inhalers and nebulizers. 7. Metabolic alkalosis.: Combination of compensation for respiratory acidosis as well as aggressive diuresis at the time of his presentation which has since been discontinued. Pt appears stable and ABG improved after BiPAP overnight. 8. NIDDM 2: A1c 6.8 February of this year. Patient not on any medications. On insulin sliding scale while inpatient 9. Tobacco use: Patient counseled on smoking cessation. Likely contributing to his poor respiratory status at baseline regarding his obstructive disease. 10. Morbid obesity: Complicates care. 11. Medical noncompliance: Complicates care. Pt wishes to go home and states he feels well but continues to require supplemental oxygen during the day and does not appear to be at his own baseline. 12. Bedbugs: Lives at home with his friend, sleeps on couch, stated there are bedbugs. Placed on contact precautions, PFS consult poor living situation the necessity for help at home Disposition PFS assisting with services PT & OT, pending improvement in his respiratory status VS, I&O, 24H, Fishbone Vital Signs/I&O Vital Signs Date Time Temp Pulse Resp B/P (MAP) Pulse Ox O2 Delivery O2 Flow Rate FiO2 04/01/19 10:01 93 180/88 04/01/19 10:00 22 90 15.0 04/01/19 08:00 96.8 04/01/19 07:41 BIPAP/CPAP 45 I&O- Last 24 Hours up to 6 AM 04/01/19 06:00 Intake Total 800 ml Output Total 1705 ml Balance -905 ml Laboratory Data 24H LABS Laboratory Tests 2 03/31/19 15:04: Blood Gas Bicarbonate Standard 43.6H, Arterial Blood pH 7.352, Arterial Blood Partial Pressure CO2 94.2*H, Arterial Blood Partial Pressure O2 86.7, Arterial Blood Total CO2 54.0H, Arterial Blood HCO3 51.1H, Arterial Blood Base Excess 19.1H, Arterial Blood Oxygen Saturation 96.2 03/31/19 16:41: Bedside Glucose (Misc Panel) 140H 03/31/19 20:45: Bedside Glucose (Misc Panel) 186H 04/01/19 04:59: Nucleated Red Blood Cells % (auto) 0.0, Anion Gap 4L, Glomerular Filtration Rate > 60.0, Blood Urea Nitrogen 26H, Creatinine 0.92, Sodium Level 135L, Potassium Level 4.1, Chloride Level 89L, Carbon Dioxide Level 42H, Calcium Level 10.6H, Magnesium Level 2.3 04/01/19 05:57: Blood Gas Bicarbonate Standard 39.1H, Arterial Blood pH 7.428, Arterial Blood Partial Pressure CO2 67.8*H, Arterial Blood Partial Pressure O2 59.9L, Arterial Blood Total CO2 45.9H, Arterial Blood HCO3 43.8H, Arterial Blood Base Excess 15.3H, Arterial Blood Oxygen Saturation 90.1L CBC/BMP Laboratory Tests 04/01/19 04:59 Red Blood Count 5.11, Mean Corpuscular Volume 99.6 H, Mean Corpuscular Hemoglobin 30.9, Mean Corpuscular Hemoglobin Concent 31.0 L, Red Cell Dis tribution Width 15.9 H, Calcium Level 10.6 H GME ATTESTATION GME ATTESTATION I saw and evaluated the patient. I agree with the findings and plan of care as documented in the above note JUANIS RUTHERFORD PGY-1 Apr 01, 2019 11:57 JEFFERY LEACH MD Apr 09, 2019 16:57
--- NOTE | 2019-04-01 15:29 | CR.PDOC ---
General Date of Consultation: Apr 01, [address] Barnett. HPI: The patient is a 59-year-old male admitted 03/28/19 with acute on chronic respiratory failure. The patient is noted to have a history of pulmonary emboli sm, Patient was diagnosed with a pulmonary embolism in October 2018. Apparently it is unclear if he was compliant with anticoagulation. CTA does not reveal any PE and his lower extremity duplex does not reveal any DVTs, his risk factors being morbid obesity and sedentary lifestyle are fixed and it is felt he would likely benefit from an IVC filter. Vascular surgery is consulted for consideration of IVC filter placement. Currently on BIPAP, arousable but most of history is taken form the chart. PMHx: COPD, GERD, diabetes mellitus, PE, chronic back pain, chronic alcoholism, hypertension, hyperlipidemia, seizure disorder, peripheral neuropathy, noncompliance. PSHX: Left hand surgery SOCHX: Tobacco use: smoker ETOH: H/O alcohol use Illicit Drugs: Denies FAMHX: Denies family history of clotting disorder. ROS: As noted in HPI, otherwise 11pt ROS of systems reviewed and unremarkable. PE: GEN: 59 yo M. No acute distress. On BIPAP, arousable. HEENT: Normocephalic, atraumatic. Sclera are nonicteric. Conjunctiva without injection. Moist mucous membranes. CHEST: Regular rate and rhythm, +S1, +S2 LUNGS: Clear to auscultation bilaterally. No wheezes, rales, or rhonchi. Breathing appears symmetric and easy. ABD: Round, soft, non-tender, non-distended. +Bowel sounds throughout. No rebound or guarding. EXT: lower extremity edema appreciated. SKIN: [place], dry, warm. No rashes. NEURO: No focal deficits appreciated. A&P: 1. History of pulmonary embolism in October 2018. Apparently it is unclear if he was compliant with anticoagulation. CTA/lower extremity ultrasound 03/30/19 negative for PE/DVT. Patient is noted with morbid obesity and sedentary lifestyle. Dr. Barnett has reviewed the patient, tentative plan for IVC filter. Vital Signs/I&O Vital Signs Date Time Temp Pulse Resp B/P (MAP) Pulse Ox O2 Delivery O2 Flow Rate FiO2 04/01/19 15:00 75 24 149/76 (100) 96 15.0 04/01/19 12:00 97.7 04/01/19 07:41 BIPAP/CPAP 45 I&O- Last 24 Hours up to 6 AM 04/01/19 05:59 Intake Total 560 ml Output Total 1405 ml Balance -845 ml Laboratory Data Labs 24H Laboratory Tests 2 03/31/19 16:41: Bedside Glucose (Misc Panel) 140H 03/31/19 20:45: Bedside Glucose (Misc Panel) 186H 04/01/19 04:59: Nucleated Red Blood Cells % (auto) 0.0, Anion Gap 4L, Glomerular Filtration Rate > 60.0, Blood Urea Nitrogen 26H, Creatinine 0.92, Sodium Level 135L, Potassium Level 4.1, Chloride Level 89L, Carbon Dioxide Level 42H, Calcium Level 10.6H, Magnesium Level 2.3 04/01/19 05:57: Blood Gas Bicarbonate Standard 39.1H, Arterial Blood pH 7.428, Arterial Blood Partial Pressure CO2 67.8*H, Arterial Blood Partial Pressure O2 59.9L, Arterial Blood Total CO2 45.9H, Arterial Blood HCO3 43.8H, Arterial Blood Base Excess 15.3H, Arterial Blood Oxygen Saturation 90.1L 04/01/19 12:16: Bedside Glucose (Misc Panel) 112H CBC/BMP Laboratory Tests 04/01/19 04:59 Red Blood Count 5.11, Mean Corpuscular Volume 99.6 H, Mean Corpuscular Hemoglobin 30.9, Mean Corpuscular Hemoglobin Concent 31.0 L, Red Cell Distributi on Width 15.9 H, Calcium Level 10.6 H Allergies Coded Allergies: Penicillins (Verified Allergy, Unknown, 03/28/19) Home Medications Scheduled Amlodipine Besylate (Amlodipine Besylate) 10 Mg Tab, 5 MG PO DAILY, (Reported) Apixaban (Eliquis) 5 Mg Tablet, 5 MG PO BID, (Reported) Fluticasone/Vilanterol (Breo Ellipta 100-25 Mcg INH) 1 Inh Inh, 1 PUFF PO DAILY, (Reported) Furosemide (Furosemide) 40 Mg Tablet, 40 MG PO DAILY, (Reported) Gabapentin (Gabapentin) 100 Mg Cap, 200 MG PO TID, (Reported) Metoprolol Succinate (Metoprolol Succinate) 25 Mg Tab.er.24h, 25 MG PO DAILY, (Reported) Potassium Chloride (Potassium Chloride) 10 Meq Tab.er.prt, 10 MEQ PO DAILY, (Reported) Umeclidinium A[place]on (Incruse Ellipta) 62.5 Mcg/Inh Inh, 1 PUFF INH DAILY, (Reported) Scheduled PRN Acetaminophen (Tylenol Extra Strength) 500 Mg Tablet, 1,000 MG PO Q6H PRN for PAIN, (Reported) Albuterol Sulfate (Proair Hfa) 108 Mcg/Act Aer, 2 PUFF INH Q4H PRN for SHORTNESS OF BREATH, (Reported) Ipratropium/Albuterol Sulfate (Iprat-Albut 0.5-3(2.5) mg/3 ml) 3 Ml Ampul.neb, 3 ML IN Q8H PRN for SHORTNESS OF BREATH, (Reported) Bushra Loredo Apr 01, 2019 15:29
[2019-04-01] MEDS: ACETAMINOPHEN 500 MG TAB PO PRN (17:17)
[2019-04-02] VITALS (12 sets, daily range): BP systolic 137–176; BP diastolic 74–101; O2SAT 94
[2019-04-02] MEDS: IPRATROPIUM 0.5MG/ALBUTEROL 2.5MG INH SOL UD 3ML (DUONEB)(J7620) NEB SCH ×6 (00:24→20:45)
[2019-04-02 05:02] LABS: HEMATOCRIT 48.2 % (42.0-52.0); HEMOGLOBIN 15.4 g/dl (13.5-17.5); MEAN CORPUSCULAR HEMOGLOBIN 31.4 pg (27.0-33.0); MEAN CORPUSCULAR VOLUME 98.2 fl (80.0-96.0); PLATELET COUNT, AUTOMATED 307 10^3/uL (150-450); RED BLOOD COUNT 4.91 10^6/uL (4.30-6.10); WHITE BLOOD COUNT 9.5 10^3/uL (4.0-10.0)
[2019-04-02 05:25] LABS: BLOOD UREA NITROGEN 31 MG/DL (7-18); CALCIUM LEVEL 9.9 MG/DL (8.5-10.1); CARBON DIOXIDE LEVEL 40 MEQ/L (21-32); CHLORIDE LEVEL 89 MEQ/L (98-107); CREATININE FOR GFR 0.86 MG/DL (0.70-1.30); GLOMERULAR FILTRATION RATE > 60.0 (>56); GLUCOSE, FASTING 101 MG/DL (70-100); MAGNESIUM LEVEL 1.8 MG/DL (1.8-2.4); POTASSIUM SERUM 3.4 MEQ/L (3.5-5.1); SODIUM LEVEL 133 MEQ/L (136-145)
[2019-04-02 05:41] LABS: ABG BASE EXCESS 14.1 (-2.0-2.0); ABG HCO3 41.5 MEQ/L (22.0-26.0); ABG O2 SATURATION 97.6 % (95.0-99.0); ABG PARTIAL PRESSURE O2 103.2 mmHg (75.0-100.0); ABG STANDARD HCO3 38.1 MEQ/L (22.0-26.0); ABG TOTAL CO2 43.4 MEQ/L (22.0-29.0); ABG pH (ARTERIAL) 7.448 UNITS (7.350-7.450)
[2019-04-02 05:42] LABS: ABG PARTIAL PRESSURE CO2 61.4 mmHg (35.0-45.0)
[2019-04-02] MEDS: SLF 3 ML SYR IV SCH ×3 (05:44→22:00)
[2019-04-02] MEDS: HumaLOG INSULIN (NovoLOG) PER UNIT SC SCH ×4 (07:30→21:00)
[2019-04-02] MEDS: TIOTROPIUM INHALER/CAPSULE (SPIRIVA) INH SCH (07:51)
[2019-04-02] MEDS: ADVAIR HFA 230/21MCG INHALER INH SCH ×2 (07:52→21:00)
[2019-04-02] MEDS: DOCUSATE SODIUM 100 MG CAP PO SCH ×2 (09:00→20:11)
[2019-04-02] MEDS: ANALGESIC BALM CRM 120 GM TOP SCH ×4 (09:00→20:12)
[2019-04-02] MEDS: NYSTATIN 100,000 UNITS/GM TOPICAL PWD 15 GM TOP SCH ×2 (09:00→20:13)
--- NOTE | 2019-04-02 09:13 | IPNPDOC ---
Date Seen The patient was seen on 04/02/19. Progress Note Vascular surgery. Dr. Barnett. HPI: The patient is a 59-year-old male admitted 03/28/19 with acute on chronic respiratory failure. The patient is noted to have a history of pulmonary embolism, Patient was diagnosed with a pulmonary embolism in October 2018. Apparently it is unclear if he was compliant with anticoagulation. CTA does not reveal any PE and his lower extremity duplex does not reveal any DVTs, his risk factors being morbid obesity and sedentary lifestyle are fixed and it is felt he would likely benefit from an IVC filter. Vascular surgery is consulted for consideration of IVC filter placement. PMHx: COPD, GERD, diabetes mellitus, PE, chronic back pain, chronic alcoholism, hypertension, hyperlipidemia, seizure disorder, peripheral neuropathy, noncompliance. PSHX: Left hand surgery PE: GEN: 59 yo M. No acute distress. On BIPAP. HEENT: Normocephalic, atraumatic. Moist mucous membranes. CHEST: Regular rate and rhythm, +S1, +S2 LUNGS: Clear to auscultation bilaterally. No wheezes, rales, or rhonchi. ABD: Round, soft, non-tender, non-distended. EXT: lower extremity edema appreciated. SKIN: [place], dry, warm. No rashes. NEURO: No focal deficits appreciated. A&P: 1. History of pulmonary embolism in October 2018. Apparently it is unclear if he was compliant with anticoagulation. CTA/lower extremity ultrasound 03/30/19 negative for PE/DVT. Patient is noted with morbid obesity and sedentary lifestyle. Dr. Barnett has reviewed the patient, tentative plan for IVC filter 04/02/19. VS, I&O, 24H, [facility] Vital Signs/I&O Vital Signs Date Time Temp Pulse Resp B/P (MAP) Pulse Ox O2 Delivery O2 Flow Rate FiO2 04/02/19 06:00 71 18 143/86 (105) 93 45 04/02/19 04:00 96.8 04/01/19 17:00 15.0 04/01/19 07:41 BIPAP/CPAP I&O- Last 24 Hours up to 6 AM 04/02/19 06:00 Intake Total 1250 ml Output Total 1525 ml Balance -275 ml Laboratory Data 24H LABS Laboratory Tests 2 04/01/19 12:16: Bedside Glucose (Misc Panel) 112H 04/01/19 16:26: Bedside Glucose (Misc Panel) 122H 04/01/19 20:32: Bedside Glucose (Misc Panel) 151H 04/02/19 04:48: Nucleated Red Blood Cells % (auto) 0.0, Anion Gap 4L, Glomerular Filtration Rate > 60.0, Blood Urea Nitrogen 31H, Creatinine 0.86, Sodium Level 133L, Potassium Level 3.4L, Chloride Level 89L, Carbon Dioxide Level 40H, Calcium Level 9.9, Magnesium Level 1.8 04/02/19 05:25: Blood Gas Bicarbonate Standard 38.1H, Arterial Blood pH 7.448, Arterial Blood Partial Pressure CO2 61.4*H, Arterial Blood Partial Pressure O2 103.2H, Arterial Blood Total CO2 43.4H, Arterial Blood HCO3 41.5H, Arterial Blood Base Excess 14.1H, Arterial Blood Oxygen Saturation 97.6 CBC/BMP Laboratory Tests 04/02/19 04:48 Red Blood Count 4.91, Mean Corpuscular Volume 98.2 H, Mean Corpuscular Hemoglobin 31.4, Mean Corpuscular Hemoglobin Concent 32.0, Red Cell Distribution Width 16.0 H, Calcium Level 9.9 Bushra Loredo Apr 02, 2019 09:13
--- NOTE | 2019-04-02 09:58 | CCN ---
DATE OF SERVICE: 04/02/2019 PULMONARY CRITICAL CARE NOTE: Mr. Montez is seen in the intensive care unit (ICU). He has been on bilevel positive airway pressure (BiPAP) 20/10 at nighttime and during the day, and currently he is on high-flow oxygen through nasal cannula at 15 liters. He reports that he is feeling better. He denies any significant complaints. He denies shortness of breath or chest pain. He has remained afebrile. He denies any further hematemesis. His anticoagulation was held because of the hematemesis. Plans are being made for the patient to have inferior vena cava (IVC) filter placed by interventional radiology for history of pulmonary embolism (PE). PHYSICAL EXAMINATION Vital signs: Temperature 96.8, pulse 71, respiratory rate 18, blood pressure is 143/86, pulse oximetry 93% currently on 15 liters high-flow oxygen through nasal cannula. The patient is on BiPAP 20/10 with FiO2 of 45 at nighttime. Intake and output: Intake was 1490, output was 1650, balance is -160 yesterday. General: The patient is alert and oriented. He speaks in complete sentences. The patient is hard of hearing. He is morbidly obese. HEENT: Head is normocephalic, atraumatic. Pupils are reactive to light. Moist mucous membranes. Neck: Neck is supple. No cervical lymphadenopathy. No obvious jugular venous distention (JVD), although this is somewhat difficult to assess due to body habitus. Trachea is midline. Pulmonary: Diminished breath sounds. Initially there were some expiratory wheezing. However, the patient did cough and wheezing cleared. No accessory muscle use. Heart: Regular rate and rhythm. S1, S2. Distant heart sounds. No obvious murmurs. Abdomen: Obese. Positive bowel sounds. Soft. Nontender. Extremities: Trace bilateral lower extremity edema. Skin: Skin is warm and dry. Neurologic is nonfocal. LABS: pH 7.448, pCO2 61.4, pO2 103.2. WBC 9.5, hemoglobin 15.4, hematocrit 48.2, platelets 307. Sodium 133, potassium 3.4, chloride 89, carbon dioxide 40, BUN 31, creatinine 0.86, glucose 101, calcium 9.9, magnesium 1.8. ASSESSMENT AND PLAN: 1. Acute on chronic respiratory failure secondary to congestive heart failure and likely obesity hypoventilation syndrome. The patient has been getting BiPAP for sleep. While he is awake, he is on high-flow oxygen. It is likely the patient has obesity hypoventilation syndrome and it is unclear how much he will improve even with the BiPAP given the suspected obesity hypoventilation syndrome. Will continue to monitor closely. The patient does need to become more active. Orders for physical therapy (PT) evaluation are written and the patient is given orders for out of bed. We will switch him from BiPAP to tabletop with same BiPAP settings. 2. Congestive heart failure. The patient had been receiving diuretics. However, this was held when he had hematemesis. He still does look volume overloaded and does have lower extremity edema. We will give him a dose of Lasix 60 mg IV times one dose and monitor closely. He will likely need continued diuresis. 3. History of pulmonary embolism. The patient had been on anticoagulation. This was held due to hematemesis. He did undergo upper endoscopy, which did show esophagitis. His anticoagulation was stopped. The hospitalist team is arranging for IVC filter placement. 4. Chronic obstructive pulmonary disease (COPD). The patient was started on Spiriva and Advair yesterday. He had been on inhalers as an outpatient but it is unclear how compliant he was when taking those medications. Continue to monitor.
[2019-04-02] MEDS: PANTOPRAZOLE 40MG TAB (PROTONIX) PO SCH ×2 (09:59→20:11)
[2019-04-02] MEDS: GABAPENTIN 100 MG CAP PO SCH ×3 (09:59→20:11)
[2019-04-02] MEDS ORDERED: FUROSEMIDE 100 MG/10 ML VIAL (J1940) IV ONE (10:00)
[2019-04-02] MEDS ORDERED: POTASSIUM CHLORIDE 10 MEQ SR TABLET PO ONE (10:00)
[2019-04-02] MEDS: METOPROLOL SUCC *XL* 25MG TAB (TopROL *XL*) PO SCH (10:00)
[2019-04-02] MEDS: SUCRALFATE 1 GM TAB PO SCH ×2 (10:00→20:11)
--- NOTE | 2019-04-02 13:36 | IPNPDOC ---
Subjective Date Seen The patient was seen on 04/02/19. Subjective Chief Complaint/HPI Pt reports feeling well today and is wondering when he can go home. He denies shortness of breath but remains on the high flow nasal cannula at 15 liters this morning. He denies any new complaints. Constitutional: Denies: Chills, Fever, Night Sweats ENT: Denies: Head Aches Skin: Denies: Rash, Lesions Pulmonary: Denies: Dyspnea, Cough Cardiovascular: Denies: Chest Pain, Palpitations, Lt Headedness Gastrointestinal: Denies: Nausea, Vomiting, Abdominal Pain, Diarrhea Musculoskeletal: Denies: Joint Pain, Muscle Pain Neurological: Denies: Weakness, Numbness Objective Physical Examination General Exam: Positive: Alert, Cooperative Eye Exam: Positive: PERRLA, Conjunctiva & lids normal; Negative: Sclera icteric ENT Exam: Positive: Atraumatic, Mucous membr. moist/pink Neck Exam: Positive: Supple; Negative: JVD Chest Exam: Positive: Clear to auscultation (decreased breath sounds bilaterally secondary to body habitus) Heart Exam: Positive: Rate Normal, Normal S1, Normal S2; Negative: Murmurs, Rubs Abdomen Exam: Positive: Normal bowel sounds, Soft; Negative: Tenderness Extremity Exam: Positive: Edema, Normal pulses Skin Exam: Positive: Other skin issue (, chronic venous status changes in both legs) Neuro Exam: Positive: Normal Speech Psych Exam: Positive: Mental status NL, Mood NL, Oriented x 3 Assessment /Plan Assessment This is a morbidly obese 59-year-old male with acute decompensated diastolic congestive heart failure and acute hypercapnic respiratory failure Plan/VTE VTE Prophylaxis Ordered?: Yes Plan 1. Acute on chronic hypoxic and hypercapnic respiratory failure: Secondary to acutely decompensated diastolic congestive heart failure. He had several days of progressively worsening dyspnea necessitating him to sleep on the couch upright. He was acutely dyspneic when he presented 24 hours of aggressive IV diuresis he had significant improvement of symptoms or he is able to lay flat speak more comfortably and no longer dyspneic. Since hospitalized he has been noted to have significant nocturnal O2 desaturations. He has never been diagnosed with sleep apnea does not have a mask at home. Suspect he also has a significant element of obesity hypoventilation syndrome in the setting of his baseline chronic hypoxic respiratory failure necessitating 2-4 L at night related to his obstructive disease. He was on BiPAP overnight with improvement of his pCO2 on ABG this morning. He will require a sleep study when discharged. He continues to require high flow NC at 15 L today with his O2 saturations remaining below 90%. Will continue to wean his oxygen supplementation as tolerated. We will continue with further IV diuresis today with lasix to see if this with further improve his respiratory function. 2. Hematemesis: He did undergo an endoscopic evaluation by Dr. Rogers yesterday no report is available for the time being he remains on Protonix and Carafate no further evidence of bleeding his hemoglobin appears to be relatively stable he is tolerating a diet we'll withhold further anticoagulation at this time. 3. History of PE: Patient was diagnosed with a pulmonary embolism in October 2018. It is unclear if he was at all compliant with anticoagulation. Although his CTA does not reveal any PE and his lower extremity duplex does not reveal any DVTs, his risk factors being morbid obesity and sedentary lifestyle are fixed and he would likely benefit from an IVC filter. Appreciate consult from Dr. Barnett for filter placement. 4. Hypertension: Continue metoprolol and continue to monitor. 5. Suspected LEA: Currently on BiPAP at night. Will need a sleep study on discharge. 6. COPD: Appreciate input by shot man. Continue inhalers and nebulizers. 7. Metabolic alkalosis.: Combination of compensation for respiratory acidosis as well as aggressive diuresis at the time of his presentation which has since been discontinued. Pt appears stable and ABG improved after BiPAP overnight. 8. NIDDM 2: A1c 6.8 February of this year. Patient not on any medications. On insulin sliding scale while inpatient 9. Tobacco use: Patient counseled on smoking cessation. Likely contributing to his poor respiratory status at baseline regarding his obstructive disease. 10. Morbid obesity: Complicates care. 11. Medical noncompliance: Complicates care. Pt wishes to go home and states he feels well but continues to require supplemental oxygen during the day and does not appear to be at his own baseline. 12. Bedbugs: Lives at home with his friend, sleeps on couch, stated there are bedbugs. Placed on contact precautions, PFS consult poor living situation the necessity for help at home Disposition PFS assisting with services PT & OT, pending improvement in his respiratory status VS, I&O, 24H, [facility] Vital Signs/I&O Vital Signs Date Time Temp Pulse Resp B/P (MAP) Pulse Ox O2 Delivery O2 Flow Rate FiO2 04/02/19 12:00 45 04/02/19 10:00 82 18 160/90 (113) 96 15.0 04/02/19 07:00 96.8 04/01/19 07:41 BIPAP/CPAP I&O- Last 24 Hours up to 6 AM 04/02/19 06:00 Intake Total 1250 ml Output Total 1525 ml Balance -275 ml Laboratory Data 24H LABS Laboratory Tests 2 04/01/19 16:26: Bedside Glucose (Misc Panel) 122H 04/01/19 20:32: Bedside Glucose (Misc Panel) 151H 04/02/19 04:48: Nucleated Red Blood Cells % (auto) 0.0, Anion Gap 4L, Glomerular Filtration Rate > 60.0, Blood Urea Nitrogen 31H, Creatinine 0.86, Sodium Level 133L, Potassium Level 3.4L, Chloride Level 89L, Carbon Dioxide Level 40H, Calcium Level 9.9, Magnesium Level 1.8 04/02/19 05:25: Blood Gas Bicarbonate Standard 38.1H, Arterial Blood pH 7.448, Arterial Blood Partial Pressure CO2 61.4*H, Arterial Blood Partial Pressure O2 103.2H, Arterial Blood Total CO2 43.4H, Arterial Blood HCO3 41.5H, Arterial Blood Base Excess 14.1H, Arterial Blood Oxygen Saturation 97.6 04/02/19 11:39: Bedside Glucose (Misc Panel) 131H CBC/BMP Laboratory Tests 04/02/19 04:48 Red Blood Count 4.91, Mean Corpuscular Volume 98.2 H, Mean Corpuscular Hemoglobin 31.4, Mean Corpuscular Hemoglobin Concent 32.0, Red Cell Distribution Width 16.0 H, Calcium Level 9.9 GME ATTESTATION GME ATTESTATION My faculty preceptor for this patient encounter was physically present during the encounter and was fully available. All aspects of the patient interview, examination, medical decision making process, and medical care plan development were reviewed and approved by the faculty preceptor. The faculty preceptor is aware and concurs with the plan as stated in the body of this note and will attest to such by his/her cosignature. ATTENDING NOTE I, Jan Glover, have independently examined this patient and performed my own physical exam, as well as reviewed the documentation and edited where necessary. I have discussed in detail with the resident / student the findings and plan of treatment as documented by the resident / student and edited their note. I agree with their findings and treatment plan and have edited their documentation. I will continue to follow the patient during this hospital stay. JUANIS RUTHERFORD PGY-1 Apr 02, 2019 13:36 JAN GLOVER MD Apr 02, 2019 15:53
[2019-04-02] MEDS ORDERED: BUPIVACAINE HCL 0.5% 10 ML VIAL As Ordered ONE (16:42)
[2019-04-02] MEDS ORDERED: LIDOCAINE 2% MDV 20 ML VIAL As Ordered ONE (16:42)
[2019-04-02] MEDS ORDERED: ISOVUE-300 61% 50ML VIAL (Q9967) As Ordered ONE (16:42)
[2019-04-03] VITALS (8 sets, daily range): BP systolic 112–171; BP diastolic 53–85; O2SAT 91–94
[2019-04-03] MEDS: IPRATROPIUM 0.5MG/ALBUTEROL 2.5MG INH SOL UD 3ML (DUONEB)(J7620) NEB SCH ×7 (03:21→23:44)
[2019-04-03 05:04] LABS: HEMATOCRIT 46.5 % (42.0-52.0); HEMOGLOBIN 14.8 g/dl (13.5-17.5); MEAN CORPUSCULAR HEMOGLOBIN 30.4 pg (27.0-33.0); MEAN CORPUSCULAR HGB CONC 31.8 g/dl (32.0-36.5); MEAN CORPUSCULAR VOLUME 95.5 fl (80.0-96.0); PLATELET COUNT, AUTOMATED 305 10^3/uL (150-450); RED BLOOD COUNT 4.87 10^6/uL (4.30-6.10); WHITE BLOOD COUNT 8.8 10^3/uL (4.0-10.0)
[2019-04-03 05:36] LABS: BLOOD UREA NITROGEN 26 MG/DL (7-18); CALCIUM LEVEL 9.5 MG/DL (8.5-10.1); CARBON DIOXIDE LEVEL 40 MEQ/L (21-32); CHLORIDE LEVEL 91 MEQ/L (98-107); CREATININE FOR GFR 0.82 MG/DL (0.70-1.30); GLOMERULAR FILTRATION RATE > 60.0 (>56); GLUCOSE, FASTING 102 MG/DL (70-100); MAGNESIUM LEVEL 1.8 MG/DL (1.8-2.4); POTASSIUM SERUM 3.8 MEQ/L (3.5-5.1); SODIUM LEVEL 133 MEQ/L (136-145)
[2019-04-03] MEDS: SLF 3 ML SYR IV SCH ×3 (06:00→21:03)
[2019-04-03 06:03] LABS: ABG BASE EXCESS 12.4 (-2.0-2.0); ABG HCO3 39.1 MEQ/L (22.0-26.0); ABG O2 SATURATION 97.9 % (95.0-99.0); ABG PARTIAL PRESSURE CO2 57.4 mmHg (35.0-45.0); ABG STANDARD HCO3 36.2 MEQ/L (22.0-26.0); ABG TOTAL CO2 40.9 MEQ/L (22.0-29.0); ABG pH (ARTERIAL) 7.451 UNITS (7.350-7.450)
[2019-04-03] MEDS: HumaLOG INSULIN (NovoLOG) PER UNIT SC SCH ×4 (07:30→20:57)
[2019-04-03] MEDS: SUCRALFATE 1 GM TAB PO SCH ×2 (08:34→21:02)
[2019-04-03] MEDS: PANTOPRAZOLE 40MG TAB (PROTONIX) PO SCH ×2 (08:35→21:02)
[2019-04-03] MEDS: METOPROLOL SUCC *XL* 25MG TAB (TopROL *XL*) PO SCH (08:37)
[2019-04-03] MEDS: DOCUSATE SODIUM 100 MG CAP PO SCH ×2 (08:37→21:02)
[2019-04-03] MEDS: GABAPENTIN 100 MG CAP PO SCH ×3 (08:41→21:02)
[2019-04-03] MEDS: NYSTATIN 100,000 UNITS/GM TOPICAL PWD 15 GM TOP SCH ×2 (08:41→21:03)
[2019-04-03] MEDS: ANALGESIC BALM CRM 120 GM TOP SCH ×4 (08:42→21:02)
--- NOTE | 2019-04-03 09:19 | CCN ---
DATE: 04/03/2019 Mr. Montez is seen in the intensive care unit (ICU). He is still requiring BiPap at night and high-flow oxygen during the day. Overall, he does feel that he is slowly improving. Physical therapy is working with them and getting him out of bed. He had placement of IVC filter yesterday for history of pulmonary embolism. He has remained afebrile. PHYSICAL EXAMINATION: Vitals: Temperature 97.9, pulse 87, respiratory rate 22, blood pressure is 135/83, pulse oximetry is 92% on 15 liters of high flow oxygen. The patient has been on BiPap 20/10 at night time for sleep. General: The patient is alert and oriented. He speaks in complete sentences. He is working with physical therapy to get out of bed. HEENT: Head is normocephalic, atraumatic. Moist mucous membranes. Neck is supple. No cervical lymphadenopathy. No obvious jugular venous distention (JVD), although this is difficult to assess due to body habitus. Trachea is midline. Pulmonary: Diminished breath sounds but clear to auscultation bilaterally. No wheezes, rales, rhonchi or crackles. No accessory muscle use. Heart: Regular rate and rhythm. S1, S2. Heart sounds are distant. No obvious murmurs. Abdomen is obese. Positive bowel sounds, soft, nontender. Extremities: Trace bilateral lower extremity edema. Skin: Skin is warm and dry. Neurologic: Nonfocal. LABORATORY DATA pH 7.451, pCO2 is 57.4, pO2 is 95.0. CBC: WBC 8.8, hemoglobin 14.8, hematocrit 46.5, platelet 305. Sodium 133, potassium 3.8, chloride 91, carbon dioxide 40, BUN 26, creatinine 0.82, glucose 102, calcium 9.5, magnesium 1.8. ASSESSMENT/PLAN: 1. Acute on chronic respiratory failure secondary to congestive heart failure and likely obesity hypoventilation syndrome. The patient has been getting BiPap for sleep and is on high-flow oxygen while awake. The patient likely has obesity hypoventilation syndrome. He has had some improvement in blood gas but still has a metabolic alkalosis and therefore continues to need continued diuresis. He did get a dose of Lasix yesterday. The patient should remain on BiPap until discharge. He should have a diagnostic sleep study and hopefully this can be arranged for the night that he is discharged. We would ask the primary medicine team to notify the pulmonary team when the patient is ready for discharge to see if we can help facilitate setting up sleep studies. 2. Congestive heart failure. The patient did receive a dose of IV Lasix yesterday. Our recommendation would be for continued diuresis. We will defer this to the primary medicine team. 3. History of pulmonary embolism. The patient had been on anticoagulation, which was held due to hematemesis. He did receive an IVC filter yesterday. 4. Chronic obstructive pulmonary disease (COPD). The patient is on Spiriva and Advair. He is getting DuoNebs. He should be continued on respiratory inhalers. DISPOSITION: The patient is working with physical therapy to get out of bed. This will be important for his progress. Pulmonary team will sign off at present time. We will be available as needed. We would ask the medicine team to notify us when the patient's discharge is being arranged in order to help facilitate setting up sleep study.
--- NOTE | 2019-04-03 10:27 | IPNPDOC ---
Subjective Date Seen The patient was seen on 04/03/19. Subjective Chief Complaint/HPI Patient reports he is going well today and continues to state he is ready to go home. No new complaints. He denies shortness of breath. He appears comfortable sitting upright in the chair. Constitutional: Denies: Chills, Fever, Night Sweats ENT: Denies: Head Aches Pulmonary: Denies: Dyspnea, Cough Cardiovascular: Denies: Chest Pain, Palpitations, Orthopnea, Lt Headedness Gastrointestinal: Denies: Nausea, Vomiting, Abdominal Pain, Diarrhea Genitourinary: Denies: Dysuria, Frequency Musculoskeletal: Denies: Joint Pain, Muscle Pain Neurological: Denies: Weakness, Confusion Objective Physical Examination General Exam: Positive: Alert, Cooperative Eye Exam: Positive: PERRLA, Conjunctiva & lids normal; Negative: Sclera icteric ENT Exam: Positive: Atraumatic, Mucous membr. moist/pink Neck Exam: Positive: Supple; Negative: JVD Chest Exam: Positive: Clear to auscultation (decreased breath sounds bilaterally secondary to body habitus) Heart Exam: Positive: Rate Normal, Normal S1, Normal S2; Negative: Murmurs, Rubs Abdomen Exam: Positive: Normal bowel sounds, Soft; Negative: Tenderness Extremity Exam: Positive: Edema, Normal pulses Skin Exam: Positive: Other skin issue (, chronic venous status changes in both legs) Neuro Exam: Positive: Normal Speech Psych Exam: Positive: Mental status NL, Mood NL, Oriented x 3 Assessment /Plan Assessment This is a morbidly obese 59-year-old male with acute decompensated diastolic congestive heart failure and acute hypercapnic respiratory failure Plan/VTE VTE Prophylaxis Ordered?: Yes Plan 1. Acute on chronic hypoxic and hypercapnic respiratory failure: Secondary to acutely decompensated diastolic congestive heart failure. - He had several days of progressively worsening dyspnea necessitating him to sleep on the couch upright. - He was acutely dyspneic when he presented 24 hours of aggressive IV diuresis he had significant improvement of symptoms or he is able to lay flat speak more comfortably and no longer dyspneic. - Since hospitalized he has been noted to have significant nocturnal O2 desaturations. - He has never been diagnosed with sleep apnea does not have a mask at home. Suspect he also has a significant element of obesity hypoventilation syndrome in the setting of his baseline chronic hypoxic respiratory failure necessitating 2- 4 L at night related to his obstructive disease. - s/p BiPAP; Converted to the BiPAP tabletop with no issues - He will require a sleep study when discharged; will coordinate with pulmo nology upon discharge - He continues to require high flow NC at 10 L today with his O2 saturations stable around 90%. Will continue to wean his oxygen supplementation as tolerated. - We will continue with further IV diuresis with lasix to see if this with further improve his respiratory function. - He is being transferred out of the ICU to the medical surgical floor. 2. Hematemesis: - He did undergo an endoscopic evaluation by Dr. Rogers 04/01/19; evidence of mildly severe reflux esophagitis - He remains on Protonix and Carafate no further evidence of bleeding his hemoglobin appears to be relatively stable he is tolerating a diet - Will withhold further anticoagulation at this time. 3. History of PE: - Patient was diagnosed with a pulmonary embolism in October 2018. It is unclear if he was at all compliant with anticoagulation. - Although his CTA does not reveal any PE and his lower extremity duplex does not reveal any DVTs, his risk factors being morbid obesity and sedentary lifestyle are fixed and he would likely benefit from an IVC filter. - Appreciate consult from Dr. Barnett for filter placement. IVC filter was placed 04/02/2019 4. Hypertension: - Continue metoprolol and continue to monitor. 5. Suspected LEA: Currently on BiPAP at night. He used the tabletop BiPAP last night with no issues. Will need a sleep study on discharge. Will discuss with pulmonary team. Once he is closer to discharge to try to coordinate sleep study the same day he is discharged. 6. COPD: Appreciate input by personal care worker. Continue inhalers and nebulizers. 7. Metabolic alkalosis: Combination of compensation for respiratory acidosis as well as aggressive diuresis at the time of his presentation. Pt appears stable and ABG has continued to improve each morning with use of the BiPAP overnight. We'll recheck ABG if his condition worsens. 8. NIDDM 2: A1c 6.8 February of this year. Patient not on any medications. On in sulin sliding scale while inpatient 9. Tobacco use: Patient counseled on smoking cessation. Likely contributing to his poor respiratory status at baseline regarding his obstructive disease. 10. Morbid obesity: Complicates care. 11. Medical noncompliance: Complicates care. Pt wishes to go home and states he feels well but continues to require supplemental oxygen during the day and does not appear to be at his own baseline. 12. Bedbugs: Lives at home with his friend, sleeps on couch, stated there are bedbugs. Placed on contact precautions, PFS consult poor living situation the necessity for help at home Disposition PFS assisting with services PT & OT, pending improvement in his respiratory status VS, I&O, 24H, Fishbone Vital Signs/I&O Vital Signs Date Time Temp Pulse Resp B/P (MAP) Pulse Ox O2 Delivery O2 Flow Rate FiO2 04/03/19 08:43 94 10.0 04/03/19 08:37 85 171/85 04/03/19 08:00 97.5 22 04/03/19 03:22 BIPAP/CPAP 04/02/19 16:54 45 I&O- Last 24 Hours up to 6 AM 04/03/19 05:59 Intake Total 1780 ml Output Total 2350 ml Balance -570 ml Laboratory Data 24H LABS Laboratory Tests 2 04/02/19 11:39: Bedside Glucose (Misc Panel) 131H 04/02/19 17:57: Bedside Glucose (Misc Panel) 105 04/02/19 20:00: Bedside Glucose (Misc Panel) 155H 04/03/19 04:51: Nucleated Red Blood Cells % (auto) 0.0, Blood Gas Bicarbonate Standard 36.2H, Arterial Blood pH 7.451H, Arterial Blood Partial Pressure CO2 57.4H, Arterial Blood Partial Pressure O2 95.0, Arterial Blood Total CO2 40.9H, Arterial Blood HCO3 39.1H, Arterial Blood Base Excess 12.4H, Arterial Blood Oxygen Saturation 97.9, Anion Gap 2L, Glomerular Filtration Rate > 60.0, Blood Urea Nitrogen 26H, Creatinine 0.82, Sodium Level 133L, Potassium Level 3.8, Chloride Level 91L, Carbon Dioxide Level 40H, Calcium Level 9.5, Magnesium Level 1.8 CBC/BMP Laboratory Tests 04/03/19 04:51 Red Blood Count 4.87, Mean Corpuscular Volume 95.5, Mean Corpuscular Hemoglobin 30.4, Mean Corpuscular Hemoglobin Concent 31.8 L, Red Cell Distribution Width 15.6 H, Calcium Level 9.5 GME ATTESTATION GME ATTESTATION My faculty preceptor for this patient encounter was physically present during the encounter and was fully available. All aspects of the patient interview, examination, medical decision making process, and medical care plan development were reviewed and approved by the faculty preceptor. The faculty preceptor is aware and concurs with the plan as stated in the body of this note and will attest to such by his/her cosignature. ATTENDING NOTE I, Jan Glover, have independently examined this patient and performed my own physical exam, as well as reviewed the documentation and edited where necessary. I have discussed in detail with the resident / student the findings and plan of treatment as documented by the resident / student and edited their note. I agree with their findings and treatment plan and have edited their documentation. I will continue to follow the patient during this hospital stay. JUANIS RUTHERFORD PGY-1 Apr 03, 2019 10:27 JAN GLOVER MD Apr 03, 2019 15:06
[2019-04-03] MEDS: ADVAIR HFA 230/21MCG INHALER INH SCH ×2 (10:42→19:27)
[2019-04-03] MEDS: TIOTROPIUM INHALER/CAPSULE (SPIRIVA) INH SCH (10:42)
--- NOTE | 2019-04-03 11:40 | IPNPDOC ---
Date Seen The patient was seen on 04/03/19. Progress Note Vascular surgery. Dr. Barnett. HPI: The patient is a 59-year-old male admitted 03/28/19 with acute on chronic respiratory failure. The patient is noted to have a history of pulmonary embolism, Patient was diagnosed with a pulmonary embolism in October 2018. Apparently it is unclear if he was compliant with anticoagulation. CTA does not reveal any PE and his lower extremity duplex does not reveal any DVTs, his risk factors being morbid obesity and sedentary lifestyle are fixed and it is felt he would likely benefit from an IVC filter. Vascular surgery was consulted for consideration of IVC filter placement. The pt is OOB to chair, no verbalized complaints. PMHx: COPD, GERD, diabetes mellitus, PE, chronic back pain, chronic alcoholism, hypertension, hyperlipidemia, seizure disorder, peripheral neuropathy, noncompliance. PSHX: Left hand surgery PE: GEN: 59 yo M. No acute distress. On BIPAP. HEENT: Normocephalic, atraumatic. Moist mucous membranes. CHEST: Regular rate and rhythm, +S1, +S2 LUNGS: Clear to auscultation bilaterally. No wheezes, rales, or rhonchi. ABD: Round, soft, non-tender, non-distended. EXT: lower extremity edema appreciated. SKIN: Quail, dry, warm. No rashes. NEURO: No focal deficits appreciated. A&P: 1. History of pulmonary embolism in October 2018. Apparently it is unclear if he was compliant with anticoagulation. CTA/lower extremity ultrasound 03/30/19 negative for PE/DVT. Patient is noted with morbid obesity and sedentary lifestyle. Dr. Barnett has reviewed the patient, S/P IVC filter placement 04/02/19. Vascular surgery will sign off, reconsult as needed. VS, I&O, 24H, Fishbone Vital Signs/I&O Vital Signs Date Time Temp Pulse Resp B/P (MAP) Pulse Ox O2 Delivery O2 Flow Rate FiO2 04/03/19 10:33 97.9 80 20 136/81 (99) 95 10.0 04/03/19 03:22 BIPAP/CPAP 04/02/19 16:54 45 I&O- Last 24 Hours up to 6 AM 04/03/19 06:00 Intake Total 1780 ml Output Total 2300 ml Balance -520 ml Laboratory Data 24H LABS Laboratory Tests 2 04/02/19 11:39: Bedside Glucose (Misc Panel) 131H 04/02/19 17:57: Bedside Glucose (Misc Panel) 105 04/02/19 20:00: Bedside Glucose (Misc Panel) 155H 04/03/19 04:51: Nucleated Red Blood Cells % (auto) 0.0, Blood Gas Bicarbonate Standard 36.2H, Arterial Blood pH 7.451H, Arterial Blood Partial Pressure CO2 57.4H, Arterial Blood Partial Pressure O2 95.0, Arterial Blood Total CO2 40.9H, Arterial Blood HCO3 39.1H, Arterial Blood Base Excess 12.4H, Arterial Blood Oxygen Saturation 97.9, Anion Gap 2L, Glomerular Filtration Rate > 60.0, Blood Urea Nitrogen 26H, Creatinine 0.82, Sodium Level 133L, Potassium Level 3.8, Chloride Level 91L, Carbon Dioxide Level 40H, Calcium Level 9.5, Magnesium Level 1.8 CBC/BMP Laboratory Tests 04/03/19 04:51 Red Blood Count 4.87, Mean Corpuscular Volume 95.5, Mean Corpuscular Hemoglobin 30.4, Mean Corpuscular Hemoglobin Concent 31.8 L, Red Cell Distribution Width 15.6 H, Calcium Level 9.5 Bushra Loredo Apr 03, 2019 11:40
--- NOTE | 2019-04-03 13:05 | ROOPDOC ---
[facility] Report Of Operation Report of Operation DATE OF PROCEDURE: 04/02/2019 ATTENDING SURGEON: DR. Reinier Barnett M.D. ASSISTANTS: Norma Rodríguez PREOPERATIVE DIAGNOSES: Gastrointestinal bleeding, pulmonary embolus POSTOPERATIVE DIAGNOSES: Gastrointestinal bleeding, pulmonary embolus PROCEDURES: Ultrasound-guided right basilic vein cannulation. Inferior vena cava catheter placement with inferior vena cava venogram. Inferior vena cava filter placement with placement of a Option Elite retrievable inferior vena cava filter. INDICATION: The patient is a 59-year-old male with previous history of pulmonary and was too was on anticoagulation and is made to the hospital with shortness of breath and has had hematemesis during this hospitalization necessitating stoppage of his anticoagulation. Patient is high risk for DVT and recurrent pulmonary embolus and is unable to undergo anticoagulation at this time. Patient will undergo placement of a retrievable inferior vena cava filter for protection from pulmonary embolus and once the patient is stabilized and able to undergo repeat anticoagulation the filter will be removed. The procedure was described and explained in detail to the patient including drawing of pictures demonstrating the procedure and pertinent anatomy. Risks, benefits and alternative treatment options were discussed with the patient. Alternative treatment options included but were not limited to no intervention. Benefits include but were not limited to placement of a filter in the inferior vena cava for prevention of pulmonary embolus. Risks included but were not limited to infection, bleeding, renal failure requiring hemodialysis, IVC filter thrombosis, IVC filter migration, perforation of the inferior vena cava filter through the inferior vena cava into surrounding tissue and organs, retroperitoneal hematoma, cannulation site deep venous thrombosis possible need for open surgical intervention, possible requirement for transfusion of blood products, allergic reaction and/or complication from IV contrast, allergic reaction and/or complication from the prepping and draping materials, allergic reaction and/or complication from local anesthetic and/or IV sedation medications, scarring of the skin, bruising, nerve injury, pain, cerebrovascular accident, myocardial infarction, pulmonary embolus, deep venous thrombosis, poor patient satisfaction, poor results, poor outcome, loss of limb and loss of life. Risks of not performing the procedure included but were not limited to pulmonary embolus with possible intermediate accountant pulmonary hypertension and possible . Patient's questions were answered. Patient voices understanding of these risks, benefits and alternative treatment options. Patient voices acceptance of the risks associated with inferior vena cava filter placement and agrees to proceed with the procedure excepting the associated risks of the procedure. There were no guarantees or promises made to the patient regarding the results or outcome of the procedure. ANESTHESIA: Local with 10 mL of 2% lidocaine mixed with 0.5% Marcaine. FLUORO TIME: 0.5 minutes. CONTRAST: 10 cc. of Isovue-300 COMPLICATIONS: None. DRAINS: None. SPECIMENS: None. ESTIMATED BLOOD LOSS: 5 mL. INTRAVENOUS (IV) FLUID: 50 mL. HEPARIN: None PROTAMINE: None SPECIMENS: None IMPLANTS: Retrievable Option Elite inferior vena cava filter. DESCRIPTION OF PROCEDURE: Patient was taken to the vascular angiography suite and placed supine on the angiography room table. Patient was prepped and draped in a standard surgical fashion. A timeout was conducted by myself and the team members in the room confirming the correct patient, procedure and laterality. Ultrasound was then used to evaluate the right basilic vein at the antecubital fossa, which was noted to be easily compressible, widely patent, and free of thrombus. The micropuncture needle was then used to cannulate the right basilic vein at the antecubital fossa using ultrasound guidance after anesthetizing the overlying skin and subcutaneous tissue with 2% lidocaine mixed with 0.5% Marcaine. Ultrasound was then used to guide cannulation of the right basilic vein at the antecubital fossa with real-time concurrent visualization of the entry of the needle into the right basilic vein at the antecubital fossa with a hardcopy image preserved. The micropuncture wire was advanced through the micropuncture needle which was upsized to a micropuncture sheath. Fluoroscopy was then used to place the wire in the inferior vena cava through the micropuncture sheath which was upsized to a 6 Greek sheath. A catheter was placed in the inferior vena cava below the level of the renal veins and an inferior vena cava venogram was performed showing the position of the renal veins. The filter was then advanced through the sheath and deployed below the level of the renal veins using fluoroscopic guidance. Final fluoroscopic image showed the inferior vena cava filter to be in good position and good alignment. The sheath was removed and manual compression applied at the cannulation site for hemostasis, which was obtained. Dressings were then applied. The patient tolerated the procedure well. All instrument, sponge, and needle counts were correct at the end of the case. There were no complications. Dr. Barnett was present for and directed the entire case. The patient was transferred to the holding area and subsequently to the ICU in stable condition. The procedure and the results were discussed with the patient in the postprocedure holding area with all the patient's questions being answered. RADIOLOGIC SUPERVISION AND INTERPRETATION: The ultrasound showed the right basilic vein at the antecubital fossa to be widely patent, easily compressible and free of thrombus. Ultrasound was used to guide cannulation with real-time concurrent visualization of the entry of the needle into the right basilic vein at the antecubital fossa with a hardcopy image preserved. A sheath and catheter replaced into the inferior vena cava. An inferior vena cava venogram was performed demonstrating the location of the renal veins bilaterally. The retrievable inferior vena cava filter was placed below the level of the renal veins in the inferior vena cava using fluoroscopic guidance. Final fluoroscopic image showed the filter to be in good position and good alignment. CONCLUSION: Patient underwent placement of an inferior vena cava filter secondary to gastrointestinal bleeding and inability to undergo anticoagulation with a history of pulmonary embolus. PLAN: Patient will be followed postoperatively and will undergo removal of the retrievable inferior vena cava filter once he has stabilized and is able to begin anticoagulation again. Merlin Barnett MD Apr 03, 2019 13:04
[2019-04-04 02:13] VITALS: O2SAT 90
[2019-04-04] MEDS: IPRATROPIUM 0.5MG/ALBUTEROL 2.5MG INH SOL UD 3ML (DUONEB)(J7620) NEB SCH ×5 (03:57→20:38)
[2019-04-04] MEDS: SLF 3 ML SYR IV SCH ×4 (05:19→22:00)
[2019-04-04 05:57] LABS: HEMATOCRIT 46.6 % (42.0-52.0); HEMOGLOBIN 14.8 g/dl (13.5-17.5); MEAN CORPUSCULAR HEMOGLOBIN 31.7 pg (27.0-33.0); MEAN CORPUSCULAR HGB CONC 31.8 g/dl (32.0-36.5); MEAN CORPUSCULAR VOLUME 99.8 fl (80.0-96.0); PLATELET COUNT, AUTOMATED 292 10^3/uL (150-450); RED BLOOD COUNT 4.67 10^6/uL (4.30-6.10)
[2019-04-04 06:00] VITALS: BP 149/89
[2019-04-04 06:22] LABS: BLOOD UREA NITROGEN 17 MG/DL (7-18); CALCIUM LEVEL 9.2 MG/DL (8.5-10.1); CARBON DIOXIDE LEVEL 38 MEQ/L (21-32); CHLORIDE LEVEL 93 MEQ/L (98-107); CREATININE FOR GFR 0.81 MG/DL (0.70-1.30); GLOMERULAR FILTRATION RATE > 60.0 (>56); GLUCOSE, FASTING 98 MG/DL (70-100); POTASSIUM SERUM 4.3 MEQ/L (3.5-5.1); SODIUM LEVEL 136 MEQ/L (136-145)
[2019-04-04] MEDS: HumaLOG INSULIN (NovoLOG) PER UNIT SC SCH ×4 (07:30→21:00)
[2019-04-04] MEDS: TIOTROPIUM INHALER/CAPSULE (SPIRIVA) INH SCH (07:35)
[2019-04-04] MEDS: ADVAIR HFA 230/21MCG INHALER INH SCH ×3 (07:35→22:39)
[2019-04-04 09:00] VITALS: O2SAT 91
[2019-04-04] MEDS: GABAPENTIN 100 MG CAP PO SCH ×3 (09:17→21:36)
[2019-04-04] MEDS: PANTOPRAZOLE 40MG TAB (PROTONIX) PO SCH ×2 (09:18→21:36)
[2019-04-04] MEDS: SUCRALFATE 1 GM TAB PO SCH ×2 (09:18→21:36)
[2019-04-04] MEDS: NYSTATIN 100,000 UNITS/GM TOPICAL PWD 15 GM TOP SCH ×2 (09:18→21:35)
[2019-04-04] MEDS: DOCUSATE SODIUM 100 MG CAP PO SCH ×2 (09:18→21:36)
[2019-04-04] MEDS: ANALGESIC BALM CRM 120 GM TOP SCH ×4 (09:19→21:37)
[2019-04-04] MEDS: METOPROLOL SUCC *XL* 25MG TAB (TopROL *XL*) PO SCH (09:20)
--- NOTE | 2019-04-04 13:58 | IPNPDOC ---
Subjective Date Seen The patient was seen on 04/04/19. Subjective Chief Complaint/HPI Patient states he is feeling well today and has no new complaints. He appears comfortable sitting upright in the chair. He denies any shortness of breath Constitutional: Denies: Chills, Fever, Night Sweats ENT: Denies: Head Aches Pulmonary: Denies: Dyspnea, Cough Cardiovascular: Denies: Chest Pain, Palpitations, Lt Headedness Gastrointestinal: Denies: Nausea, Vomiting, Abdominal Pain, Diarrhea Musculoskeletal: Denies: Joint Pain, Muscle Pain Neurological: Denies: Weakness, Confusion Objective Physical Examination General Exam: Positive: Alert, Cooperative Eye Exam: Positive: PERRLA, Conjunctiva & lids normal; Negative: Sclera icteric ENT Exam: Positive: Atraumatic, Mucous membr. moist/pink Neck Exam: Positive: Supple; Negative: JVD Chest Exam: Positive: Clear to auscultation (decreased breath sounds bilaterally secondary to body habitus) Heart Exam: Positive: Rate Normal, Normal S1, Normal S2; Negative: Murmurs, Rubs Abdomen Exam: Positive: Normal bowel sounds, Soft; Negative: Tenderness Extremity Exam: Positive: Edema, Normal pulses Skin Exam: Positive: Other skin issue (, chronic venous status changes in both legs) Neuro Exam: Positive: Normal Speech Psych Exam: Positive: Mental status NL, Mood NL, Oriented x 3 Assessment /Plan Assessment This is a morbidly obese 59-year-old male with acute decompensated diastolic congestive heart failure and acute hypercapnic respiratory failure Plan/VTE VTE Prophylaxis Ordered?: Yes Plan 1. Acute on chronic hypoxic and hypercapnic respiratory failure: Secondary to acutely decompensated diastolic congestive heart failure. - He had several days of progressively worsening dyspnea necessitating him to sleep on the couch upright. - He was acutely dyspneic when he presented 24 hours of aggressive IV diuresis he had significant improvement of symptoms or he is able to lay flat speak more comfortably and no longer dyspneic. - Since hospitalized he has been noted to have significant nocturnal O2 desaturations. - He has never been diagnosed with sleep apnea does not have a mask at home. Suspect he also has a significant element of obesity hypoventilation syndrome in the setting of his baseline chronic hypoxic respiratory failure necessitating 2- 4 L at night related to his obstructive disease. - s/p BiPAP; Converted to the BiPAP tabletop with no issues - He has been transferred out of the ICU to the medical surgical floor. - He will require a sleep study when discharged; will coordinate with pulmonology upon discharge - He was able to wean down to 2 L on nasal cannula with his O2 saturations stable around 90%. We will continue to monitor for changes. - We will continue with further IV diuresis with lasix to see if this with further improve his respiratory function. 2. Hematemesis: - He did undergo an endoscopic evaluation by Dr. Rogers 04/01/19; evidence of mildly severe reflux esophagitis - He remains on Protonix and Carafate no further evidence of bleeding his hemoglobin appears to be relatively stable he is tolerating a diet - Will withhold further anticoagulation at this time. 3. History of PE: - Patient was diagnosed with a pulmonary embolism in October 2018. It is unclear if he was at all compliant with anticoagulation. - Although his CTA does not reveal any PE and his lower extremity duplex does not reveal any DVTs, his risk factors being morbid obesity and sedentary lifestyle are fixed and he would likely benefit from an IVC filter. - Appreciate consult from Dr. Barnett for filter placement. IVC filter was placed 04/02/2019 4. Hypertension: - Continue metoprolol and continue to monitor. 5. Suspected LEA: Currently on BiPAP at night. He used the tabletop BiPAP last night with no issues. Will need a sleep study on discharge. Discussed with pulmonary team. Once he is closer to discharge to try to coordinate sleep study the same day he is discharged. 6. COPD: Appreciate input by lot attendant. Continue inhalers and nebulizers. He will need outpatient follow up with pulmonology. 7. Metabolic alkalosis: Combination of compensation for respiratory acidosis as well as aggressive diuresis at the time of his presentation. Pt appears stable and ABG has continued to improve each morning with use of the BiPAP overnight. We'll recheck ABG if his condition worsens. 8. NIDDM 2: A1c 6.8 February of this year. Patient not on any medications. On insulin sliding scale while inpatient 9. Tobacco use: Patient counseled on smoking cessation. Likely contributing to his poor respiratory status at baseline regarding his obstructive disease. 10. Morbid obesity: Complicates care. 11. Medical noncompliance: Complicates care. Pt wishes to go home and states he feels well but continues to require supplemental oxygen during the day and does not appear to be at his own baseline. 12. Bedbugs: Lives at home with his friend, sleeps on couch, stated there are bedbugs. Placed on contact precautions, PFS consult poor living situation the necessity for help at home Disposition [facility] assisting with services PT & OT VS, I&O, 24H, Fishbone Vital Signs/I&O Vital Signs Date Time Temp Pulse Resp B/P (MAP) Pulse Ox O2 Delivery O2 Flow Rate FiO2 04/04/19 09:20 82 142/69 04/04/19 06:00 2.0 04/04/19 06:00 97.0 20 92 04/04/19 02:13 BIPAP/CPAP 04/02/19 16:54 45 I&O- Last 24 Hours up to 6 AM 04/04/19 05:59 Intake Total 1750 ml Output Total 2150 ml Balance -400 ml Laboratory Data 24H LABS Laboratory Tests 2 04/03/19 12:30: Bedside Glucose (Misc Panel) 123H 04/03/19 16:30: Bedside Glucose (Misc Panel) 115H 04/03/19 20:38: Bedside Glucose (Misc Panel) 143H 04/04/19 05:35: Nucleated Red Blood Cells % (auto) 0.0, Anion Gap 5L, Glomerular Filtration Rate > 60.0, Blood Urea Nitrogen 17, Creatinine 0.81, Sodium Level 136, Potassium Level 4.3, Chloride Level 93L, Carbon Dioxide Level 38H, Calcium Level 9.2, Magnesium Level 2.0 04/04/19 06:16: Bedside Glucose (Misc Panel) 121H CBC/BMP Laboratory Tests 04/04/19 05:35 Red Blood Count 4.67, Mean Corpuscular Volume 99.8 H, Mean Corpuscular Hemoglobin 31.7, Mean Corpuscular Hemoglobin Concent 31.8 L, Red Cell Distribution Width 15.9 H, Calcium Level 9.2 GME ATTESTATION GME ATTESTATION My faculty preceptor for this patient encounter was physically present during the encounter and was fully available. All aspects of the patient interview, examination, medical decision making process, and medical care plan development were reviewed and approved by the faculty preceptor. The faculty preceptor is aware and concurs with the plan as stated in the body of this note and will attest to such by his/her cosignature. ATTENDING NOTE I, Jan Glover, have independently examined this patient and performed my own physical exam, as well as reviewed the documentation and edited where necessary. I have discussed in detail with the resident / student the findings and plan of treatment as documented by the resident / student and edited their note. I agree with their findings and treatment plan and have edited their documentation. I will continue to follow the patient during this hospital stay. JUANIS RUTHERFORD PGY-1 Apr 04, 2019 10:13 JAN GLOVER MD Apr 04, 2019 16:05
[2019-04-04 16:00] VITALS: BP 130/77
[2019-04-04] MEDS: ACETAMINOPHEN TAB 650MG DOSE (2X325MG) PO PRN (21:36)
[2019-04-05 00:46] VITALS: O2SAT 93
[2019-04-05] MEDS: IPRATROPIUM 0.5MG/ALBUTEROL 2.5MG INH SOL UD 3ML (DUONEB)(J7620) NEB SCH ×7 (01:00→23:54)
[2019-04-05] MEDS: SLF 3 ML SYR IV SCH ×3 (05:12→22:00)
[2019-04-05 06:00] VITALS: BP 151/74
[2019-04-05 06:11] LABS: HEMATOCRIT 46.8 % (42.0-52.0); HEMOGLOBIN 14.7 g/dl (13.5-17.5); MEAN CORPUSCULAR HEMOGLOBIN 31.2 pg (27.0-33.0); MEAN CORPUSCULAR HGB CONC 31.4 g/dl (32.0-36.5); MEAN CORPUSCULAR VOLUME 99.4 fl (80.0-96.0); PLATELET COUNT, AUTOMATED 323 10^3/uL (150-450); RED BLOOD COUNT 4.71 10^6/uL (4.30-6.10); WHITE BLOOD COUNT 11.1 10^3/uL (4.0-10.0)
[2019-04-05 06:38] LABS: BLOOD UREA NITROGEN 18 MG/DL (7-18); CALCIUM LEVEL 9.3 MG/DL (8.5-10.1); CARBON DIOXIDE LEVEL 37 MEQ/L (21-32); CHLORIDE LEVEL 97 MEQ/L (98-107); CREATININE FOR GFR 0.79 MG/DL (0.70-1.30); GLOMERULAR FILTRATION RATE > 60.0 (>56); GLUCOSE, FASTING 99 MG/DL (70-100); SODIUM LEVEL 137 MEQ/L (136-145)
[2019-04-05] MEDS: TIOTROPIUM INHALER/CAPSULE (SPIRIVA) INH SCH (07:23)
[2019-04-05] MEDS: ADVAIR HFA 230/21MCG INHALER INH SCH ×2 (07:23→21:00)
[2019-04-05] MEDS: HumaLOG INSULIN (NovoLOG) PER UNIT SC SCH ×4 (07:30→21:00)
[2019-04-05] MEDS: GABAPENTIN 100 MG CAP PO SCH ×3 (08:16→21:38)
[2019-04-05] MEDS: SUCRALFATE 1 GM TAB PO SCH ×2 (08:16→21:38)
[2019-04-05] MEDS: DOCUSATE SODIUM 100 MG CAP PO SCH ×2 (08:16→21:38)
[2019-04-05] MEDS: METOPROLOL SUCC *XL* 25MG TAB (TopROL *XL*) PO SCH (08:16)
[2019-04-05] MEDS: PANTOPRAZOLE 40MG TAB (PROTONIX) PO SCH ×2 (08:16→21:38)
[2019-04-05] MEDS: NYSTATIN 100,000 UNITS/GM TOPICAL PWD 15 GM TOP SCH ×2 (08:17→21:38)
[2019-04-05] MEDS: ANALGESIC BALM CRM 120 GM TOP SCH ×4 (08:17→21:38)
[2019-04-05 09:20] VITALS: O2SAT 97
--- NOTE | 2019-04-05 10:40 | IPNPDOC ---
Subjective Date Seen The patient was seen on 04/05/19. Subjective Chief Complaint/HPI Patient states he is feeling well today. He appears comfortable sitting upright in the chair. He denies any shortness of breath. He states he does have some soreness in his right arm at the site that was accessed for his IVC filter placement. He denies any swelling or warmth of the area, and there are no signs of infection. Constitutional: Denies: Chills, Fever ENT: Denies: Head Aches Pulmonary: Denies: Dyspnea, Cough Cardiovascular: Denies: Chest Pain, Palpitations, Lt Headedness Gastrointestinal: Denies: Nausea, Vomiting, Abdominal Pain, Diarrhea, Constipation Genitourinary: Denies: Dysuria, Frequency Musculoskeletal: Denies: Joint Pain, Muscle Pain Neurological: Denies: Weakness, Confusion Psych: Reports: Mood Normal Objective Physical Examination General Exam: Positive: Alert, Cooperative, No Acute Distress Eye Exam: Positive: PERRLA, Conjunctiva & lids normal; Negative: Sclera icteric ENT Exam: Positive: Atraumatic, Mucous membr. moist/pink Neck Exam: Positive: Supple; Negative: JVD Chest Exam: Positive: Clear to auscultation (decreased breath sounds bilaterally secondary to body habitus) Heart Exam: Positive: Rate Normal, Normal S1, Normal S2; Negative: Murmurs, Rubs Abdomen Exam: Positive: Normal bowel sounds, Soft; Negative: Tenderness Extremity Exam: Positive: Edema, Normal pulses Skin Exam: Positive: Other skin issue (, chronic venous status changes in both legs) Neuro Exam: Positive: Normal Speech Psych Exam: Positive: Mental status NL, Mood NL, Oriented x 3 Assessment /Plan Assessment This is a morbidly obese 59-year-old male with acute decompensated diastolic congestive heart failure and acute hypercapnic respiratory failure Plan/VTE VTE Prophylaxis Ordered?: Yes Plan 1. Acute on chronic hypoxic and hypercapnic respiratory failure: Secondary to acutely decompensated diastolic congestive heart failure. - He had several days of progressively worsening dyspnea necessitating him to sleep on the couch upright. - He was acutely dyspneic when he presented 24 hours of aggressive IV diuresis he had significant improvement of symptoms or he is able to lay flat speak more comfortably and no longer dyspneic. - Since hospitalized he has been noted to have significant nocturnal O2 desaturations. - He has never been diagnosed with sleep apnea does not have a mask at home. Suspect he also has a significant element of obesity hypoventilation syndrome in the setting of his baseline chronic hypoxic respiratory failure necessitating 2- 4 L at night related to his obstructive disease. - s/p BiPAP; Converted to the BiPAP tabletop with no issues - He has been transferred out of the ICU to the medical surgical floor. - He will require a sleep study when discharged; will coordinate with pulmonology upon discharge. - He was able to wean down to 2 L on nasal cannula with his O2 saturations stable around 90%. - His respiratory function is stable at his baseline oxygen requirements. He is stable for discharge to subacute care facility pending placement. 2. Hematemesis: - He did undergo an endoscopic evaluation by Dr. Rogers 04/01/19; evidence of mildly severe reflux esophagitis - He remains on Protonix and Carafate no further evidence of bleeding his hemoglobin appears to be relatively stable he is tolerating a diet - Will withhold further anticoagulation at this time. 3. History of PE: - Patient was diagnosed with a pulmonary embolism in October 2018. It is unclear if he was at all compliant with anticoagulation. - Although his CTA does not reveal any PE and his lower extremity duplex does not reveal any DVTs, his risk factors being morbid obesity and sedentary lifestyle are fixed and he would likely benefit from an IVC filter. - Appreciate consult from Dr. Barnett for filter placement. IVC filter was placed 04/02/2019 4. Hypertension: - Continue metoprolol and continue to monitor. 5. Suspected LEA: - He continues to use the tabletop BiPAP overnight with no issues. - Will need a sleep study on discharge from rehab. Discussed with pulmonary team. 6. COPD: Appreciate input by press operator apprentice. Continue inhalers and nebulizers. He will need outpatient follow up with pulmonology. 7. Metabolic alkalosis: Combination of compensation for respiratory acidosis as well as aggressive diuresis at the time of his presentation. Pt appears stable and ABG has continued to improve each morning with use of the BiPAP overnight. We'll recheck ABG if his condition worsens. 8. NIDDM 2: A1c 6.8 February of this year. Patient not on any medications. On insulin sliding scale while inpatient 9. Tobacco use: Patient counseled on smoking cessation. Likely contributing to his poor respiratory status at baseline regarding his obstructive disease. 10. Morbid obesity: Complicates care. 11. Medical noncompliance: Complicates care. Pt wishes to go home and states he feels well but continues to require supplemental oxygen during the day and does not appear to be at his own baseline. 12. Bedbugs: Lives at home with his friend, sleeps on couch, stated there are bedbugs. Placed on contact precautions, PFS consult poor living situation the necessity for help at home Disposition Subacute care pending placement VS, I&O, 24H, Fishbone Vital Signs/I&O Vital Signs Date Time Temp Pulse Resp B/P (MAP) Pulse Ox O2 Delivery O2 Flow Rate FiO2 04/05/19 08:16 84 151/74 04/05/19 06:00 98.0 20 90 2.0 04/05/19 00:46 BIPAP/CPAP 04/02/19 16:54 45 I&O- Last 24 Hours up to 6 AM 04/05/19 06:00 Intake Total 1350 ml Output Total 1850 ml Balance -500 ml Laboratory Data 24H LABS Laboratory Tests 2 04/04/19 11:44: Bedside Glucose (Misc Panel) 131H 04/04/19 20:50: Bedside Glucose (Misc Panel) 102 04/05/19 05:40: Nucleated Red Blood Cells % (auto) 0.0, Anion Gap 3L, Glomerular Filtration Rate > 60.0, Blood Urea Nitrogen 18, Creatinine 0.79, Sodium Level 137, Potassium Level 4.0, Chloride Level 97L, Carbon Dioxide Level 37H, Calcium Level 9.3, Magnesium Level 2.0 CBC/BMP Laboratory Tests 04/05/19 05:40 Red Blood Count 4.71, Mean Corpuscular Volume 99.4 H, Mean Corpuscular Hemoglobin 31.2, Mean Corpuscular Hemoglobin Concent 31.4 L, Red Cell Distribution Width 15.9 H, Calcium Level 9.3 Microbiology Microbiology 04/04/19 Stool Occult Blood (STEPH) - Final, Complete JUANIS RUTHERFORD PGY-1 Apr 05, 2019 10:39
[2019-04-05 14:00] VITALS: BP 149/84
[2019-04-05] MEDS: ACETAMINOPHEN TAB 650MG DOSE (2X325MG) PO PRN (21:39)
[2019-04-05 23:54] VITALS: O2SAT 96
[2019-04-06] MEDS: IPRATROPIUM 0.5MG/ALBUTEROL 2.5MG INH SOL UD 3ML (DUONEB)(J7620) NEB SCH ×5 (04:25→20:00)
[2019-04-06] MEDS: SLF 3 ML SYR IV SCH (05:21)
[2019-04-06 06:00] VITALS: BP 134/78
[2019-04-06 06:52] LABS: HEMATOCRIT 45.9 % (42.0-52.0); HEMOGLOBIN 14.4 g/dl (13.5-17.5); MEAN CORPUSCULAR HEMOGLOBIN 30.6 pg (27.0-33.0); MEAN CORPUSCULAR HGB CONC 31.4 g/dl (32.0-36.5); MEAN CORPUSCULAR VOLUME 97.7 fl (80.0-96.0); PLATELET COUNT, AUTOMATED 328 10^3/uL (150-450); WHITE BLOOD COUNT 7.9 10^3/uL (4.0-10.0)
[2019-04-06 07:18] LABS: BLOOD UREA NITROGEN 15 MG/DL (7-18); CALCIUM LEVEL 9.5 MG/DL (8.5-10.1); CARBON DIOXIDE LEVEL 36 MEQ/L (21-32); CHLORIDE LEVEL 98 MEQ/L (98-107); CREATININE FOR GFR 0.73 MG/DL (0.70-1.30); GLOMERULAR FILTRATION RATE > 60.0 (>56); GLUCOSE, FASTING 91 MG/DL (70-100); POTASSIUM SERUM 4.1 MEQ/L (3.5-5.1); SODIUM LEVEL 137 MEQ/L (136-145)
[2019-04-06] MEDS: HumaLOG INSULIN (NovoLOG) PER UNIT SC SCH ×4 (07:30→20:46)
[2019-04-06] MEDS: TIOTROPIUM INHALER/CAPSULE (SPIRIVA) INH SCH (07:33)
[2019-04-06] MEDS: ADVAIR HFA 230/21MCG INHALER INH SCH ×2 (07:34→20:56)
[2019-04-06 09:00] VITALS: O2SAT 96
[2019-04-06] MEDS: DOCUSATE SODIUM 100 MG CAP PO SCH ×2 (09:08→20:34)
[2019-04-06] MEDS: SUCRALFATE 1 GM TAB PO SCH ×2 (09:08→20:33)
[2019-04-06] MEDS: GABAPENTIN 100 MG CAP PO SCH ×3 (09:08→20:34)
[2019-04-06] MEDS: PANTOPRAZOLE 40MG TAB (PROTONIX) PO SCH ×2 (09:08→20:33)
[2019-04-06] MEDS: METOPROLOL SUCC *XL* 25MG TAB (TopROL *XL*) PO SCH (09:09)
[2019-04-06] MEDS: ANALGESIC BALM CRM 120 GM TOP SCH ×4 (09:09→20:34)
[2019-04-06] MEDS: NYSTATIN 100,000 UNITS/GM TOPICAL PWD 15 GM TOP SCH ×2 (09:12→20:34)
[2019-04-06] MEDS: ACETAMINOPHEN TAB 650MG DOSE (2X325MG) PO PRN (12:44)
[2019-04-06 14:00] VITALS: BP 135/68
[2019-04-06 22:43] VITALS: O2SAT 98
[2019-04-07] MEDS: IPRATROPIUM 0.5MG/ALBUTEROL 2.5MG INH SOL UD 3ML (DUONEB)(J7620) NEB SCH ×6 (04:00→20:00)
[2019-04-07 06:00] VITALS: BP 136/60
[2019-04-07] MEDS: HumaLOG INSULIN (NovoLOG) PER UNIT SC SCH ×4 (07:30→21:00)
[2019-04-07] MEDS: TIOTROPIUM INHALER/CAPSULE (SPIRIVA) INH SCH (07:50)
[2019-04-07] MEDS: ADVAIR HFA 230/21MCG INHALER INH SCH ×2 (07:51→19:44)
[2019-04-07] MEDS: ACETAMINOPHEN 500 MG TAB PO PRN (08:57)
[2019-04-07] MEDS: GABAPENTIN 100 MG CAP PO SCH ×3 (08:57→22:42)
[2019-04-07] MEDS: SUCRALFATE 1 GM TAB PO SCH ×2 (08:57→22:41)
[2019-04-07] MEDS: PANTOPRAZOLE 40MG TAB (PROTONIX) PO SCH ×2 (08:57→22:42)
[2019-04-07] MEDS: DOCUSATE SODIUM 100 MG CAP PO SCH ×2 (08:57→21:00)
[2019-04-07] MEDS: ANALGESIC BALM CRM 120 GM TOP SCH ×4 (08:59→22:42)
[2019-04-07 09:00] VITALS: O2SAT 96
[2019-04-07] MEDS: NYSTATIN 100,000 UNITS/GM TOPICAL PWD 15 GM TOP SCH ×2 (09:09→21:00)
[2019-04-07] MEDS: METOPROLOL SUCC *XL* 25MG TAB (TopROL *XL*) PO SCH (09:09)
[2019-04-07 22:00] VITALS: BP_SYST 136; BP_SYST 141; BP_DIAS 71; O2SAT 93
[2019-04-08] MEDS: IPRATROPIUM 0.5MG/ALBUTEROL 2.5MG INH SOL UD 3ML (DUONEB)(J7620) NEB SCH ×4 (04:00→11:40)
[2019-04-08 06:00] VITALS: BP 134/71
[2019-04-08 06:00] LABS: HEMATOCRIT 50.2 % (42.0-52.0); HEMOGLOBIN 15.3 g/dl (13.5-17.5); MEAN CORPUSCULAR HEMOGLOBIN 31.3 pg (27.0-33.0); MEAN CORPUSCULAR HGB CONC 30.5 g/dl (32.0-36.5); MEAN CORPUSCULAR VOLUME 102.7 fl (80.0-96.0); PLATELET COUNT, AUTOMATED 265 10^3/uL (150-450); RED BLOOD COUNT 4.89 10^6/uL (4.30-6.10); WHITE BLOOD COUNT 6.3 10^3/uL (4.0-10.0)
[2019-04-08 06:27] LABS: BLOOD UREA NITROGEN 13 MG/DL (7-18); CALCIUM LEVEL 9.7 MG/DL (8.5-10.1); CARBON DIOXIDE LEVEL 37 MEQ/L (21-32); CHLORIDE LEVEL 100 MEQ/L (98-107); GLOMERULAR FILTRATION RATE > 60.0 (>56); GLUCOSE, FASTING 90 MG/DL (70-100); POTASSIUM SERUM 5.1 MEQ/L (3.5-5.1); SODIUM LEVEL 138 MEQ/L (136-145)
[2019-04-08] MEDS: HumaLOG INSULIN (NovoLOG) PER UNIT SC SCH ×3 (07:30→17:24)
[2019-04-08] MEDS: TIOTROPIUM INHALER/CAPSULE (SPIRIVA) INH SCH (07:42)
[2019-04-08] MEDS: ADVAIR HFA 230/21MCG INHALER INH SCH (07:43)
[2019-04-08] MEDS: SUCRALFATE 1 GM TAB PO SCH (09:41)
[2019-04-08] MEDS: DOCUSATE SODIUM 100 MG CAP PO SCH (09:41)
[2019-04-08 09:42] VITALS: BP 134/71
[2019-04-08] MEDS: ANALGESIC BALM CRM 120 GM TOP SCH ×3 (09:42→17:23)
[2019-04-08] MEDS: PANTOPRAZOLE 40MG TAB (PROTONIX) PO SCH (09:42)
[2019-04-08] MEDS: GABAPENTIN 100 MG CAP PO SCH ×2 (09:42→17:24)
[2019-04-08] MEDS: METOPROLOL SUCC *XL* 25MG TAB (TopROL *XL*) PO SCH (09:42)
[2019-04-08] MEDS: NYSTATIN 100,000 UNITS/GM TOPICAL PWD 15 GM TOP SCH (09:43)
[2019-04-08] MEDS ORDERED: TIOT18INH INH (13:28)
[2019-04-08] MEDS ORDERED: ADVA230A INH (13:28)
--- NOTE | 2019-04-08 16:44 | DS.PDOC ---
Discharge Summary General Date of Admission Mar 28, 2019 at 05:44 Date of Discharge 04/08/2019 Primary Care Physician: Parrish Rangel MD Attending Physician: JAN GLOVER MD Discharge Summary PROCEDURES PERFORMED DURING STAY: EGD, IVC filter placement ADMITTING DIAGNOSES: 1. CHF. 2. Failure to thrive. 3. History of PE. 4. COPD. 5. NIDDM 2 6. Hypertension. 7. Morbid obesity. 8. Bed bugs DISCHARGE DIAGNOSES: 1. CHF. 2. History of PE. 3. COPD. 4. NIDDM 2 5. Hypertension. 6. LEA. 7. Morbid obesity. COMPLICATIONS/CHIEF COMPLAINT: CHF. HISTORY OF PRESENT ILLNESS: A 59-year-old male with a past medical history consisting of COPD, diabetes mellitus, CHF, GERD, prior PE, chronic back pain, chronic alcoholism, hypertension, hyperlipidemia, morbid obesity and n oncompliance who presented to the emergency room she due to concern from his family. The patient himself did not offer any complaints. However, his family was concerned that he had become increasingly weak, short of breath, and unable to ambulate. The family reported that the patient became so short of breath that he had to sleep sitting upright on the couch and he had become so weak that he was unable to lift himself up to get off the couch. The patient was found to be fluid overloaded with 3+ lower extremity pitting edema and rales in bilateral lungs. He was admitted for decompensation of CHF secondary to medicine noncompliance. HOSPITAL COURSE: Patient was admitted to PCU with telemetry. The patient typically uses 2-3 L oxygen on nasal cannula at home but was requiring 4-6 L on admission. He was treated with high-dose IV furosemide for aggressive diuresis. He was also treated with duo nebs every 4 hours. He did have significant improvement in his shortness of breath after aggressive diuresis, however, was also noted that he had significant nocturnal O2 desaturations. He denied a history of obstructive sleep apnea. At that point, Dr. Chatman was consulted for consideration of BiPAP. His ABG showed compensated but worsening hypercarbia in the setting of metabolic alkalosis secondary to diuresis and chronic respiratory acidosis. The patient required high flow nasal cannula at 15 L. The patient also developed hematemesis. Patient was started on a PPI and Carafate treatment and underwent an EGD with Dr. Rogers. The EGD did not show any active bleeding but did show some blood in the esophagus, possibly due to esophagitis versus traumatic NG tube insertion. The patient was taking Eliquis at home, although it is questionable whether he was compliant with this medication, and GI recommended stopping the patient's home anticoagulation. He had a CTA which was negative for PE and bilateral duplex U/S which were negative for DVTs. Due to the patient's history of a PE in October, in addition to his sedentary lifestyle, which is complicated by his morbid obesity, Dr. Barnett was consulted for IVC filter placement. The IVC filter was successfully placed without any complications. His respiratory status continued to improve with further diuresis. He was reportedly prescribed inhalers for outpatient management of COPD, but his compliance with these inhalers was unclear. He was started on Spiriva and Advair. At this point, he was stable enough to transfer to the medical surgical floor. His respiratory status continued to improve and he was able to wean down onto his home oxygen requirement of 2-4 L nasal cannula. Continue to work with physical therapy on his functional status. He was initially cleared to be discharged to subacute care facility. While he was await ing placement (facilities and was able to be cleared by physical therapy to be discharged home with services and outpatient PT. The patient was also screened for LEA. His neck circumference is 20 inches. He answers yes to snoring at night and yes to fatigue during the day. He was set up by pulmonology for a sleep study, which is scheduled for tonight following hid discharge. DISCHARGE MEDICATIONS: Please see below. ALLERGIES: Please see below. PHYSICAL EXAMINATION ON DISCHARGE: VITAL SIGNS: Please see below. GENERAL: Lying comfortably in bed, no acute distress HEENT: PERRLA, EOIM, moist mucous membranes NECK: Supple, no JVD CARDIOVASCULAR EXAMINATION: Normal S1 and S2, regular rate and rhythm, no murmurs or rubs RESPIRATORY EXAMINATION: Decreased breath sounds bilaterally due to body habitus. No wheezing, rales, rhonchi. ABDOMINAL EXAMINATION: Soft, nontender, nondistended, bowel sounds present EXTREMITIES: Edema present in bilateraly lower extremities. no clubbing or cyanosis. 2+ pulses in the radial, posterior tibial arteries SKIN: chronic venous stasis changes in bilateral lower extremities NEUROLOGICAL EXAMINATION: Alert and oriented 3 to person, place, and time, cranial nerves III through XII grossly intact, no focal deficits PSYCHIATRIC EXAMINATION: Mood and affect normal LABORATORY DATA: Please see below. IMAGING: - CXR on 03/28: No acute cardiopulmonary findings. - Vascular U/S on 03/28: No evidence of deep venous thrombosis of the bilateral lower extremity femoral popliteal venous system. Right popliteal cyst measures 5.5 x 3.2 x 1.7 cm and left popliteal cyst measures 3.7 x 2.6 x 1.0 cm. - Echocardiogram on 03/28: 1. Mild concentric left ventricle hypertrophy. Normal regional LV wall motion and wall thickening. Normal left ventricular (LV) systolic function. Left ventricular ejection fraction (LVEF) 65-70% by visual estimate. Grade 1 LV diastolic dysfunction (impaired relaxation filling pattern). 2. Suggestive of moderate elevation of estimated right ventricle systolic pressure. 3. Mild mitral annular calcification. No mitral regurgitation. 4. Very small pericardial effusion measuring 4 mm over the posterior wall of the left ventricle. No diastolic chamber collapse. - CTA on 03/30: There are no emboli in the pulmonary trunk or central pulmonary arteries. There is suboptimal opacification of the lumbar, segmental and subsegmental pulmonary arteries. Bilateral dependent atelectasis. Right upper lobe discoid atelectasis. Gallbladder calculus, unchanged. Left renal upper pole cyst, unchanged. - Vascular U/S on 03/30: There is no deep vein thrombus in the right or left lower extremities. There are bilateral popliteal fossa Fishman's cyst. PROGNOSIS: Poor ACTIVITY: As tolerated. DIET: As tolerated DISPOSITION: Home with services and outpatient PT DISCHARGE INSTRUCTIONS: 1. Please follow up with PCP in 7-10 days 2. Please follow up with pulmonology to establish care within 1 week 3. Please complete your sleep study as scheduled. 4. Stop taking the medications Apixaban and inhalers Breo and Incruse which you were previously prescribed at home 5. Start taking inhalers Advair and Spiriva at home. 6. Continue you other home medications as prescribed. 7. If you have any concerns or if you condition worsens, please call your PCP 8. Return to the ER if you experience any problems ITEMS TO FOLLOWUP ON ON OUTPATIENT: 1. Acute decompensated CHF. 2. COPD exacerbation. 3. Sleep study for BiPAP. DISCHARGE CONDITION: Stable TIME SPENT ON DISCHARGE: Greater than 35 minutes. Vital Signs/I&Os Vital Signs Date Time Temp Pulse Resp B/P (MAP) Pulse Ox O2 Delivery O2 Flow Rate FiO2 04/08/19 09:42 88 134/71 04/08/19 06:00 98.9 17 97 04/07/19 22:00 Nasal Cannula 2.0 04/02/19 16:54 45 I&O- Last 24 Hours up to 6 AM 04/08/19 06:00 Intake Total 1720 ml Output Total 2625 ml Balance -905 ml Laboratory Data Labs 24H Laboratory Tests 2 04/07/19 17:01: Bedside Glucose (Misc Panel) 100 04/07/19 20:32: Bedside Glucose (Misc Panel) 104 04/08/19 05:32: Nucleated Red Blood Cells % (auto) 0.0, Anion Gap 1L, Glomerular Filtration Rate > 60.0, Blood Urea Nitrogen 13, Creatinine 0.70, Sodium Level 138, Potassium Level 5.1#, Chloride Level 100, Carbon Dioxide Level 37H, Calcium Level 9.7, Magnesium Level 2.0 04/08/19 11:47: Bedside Glucose (Misc Panel) 73 CBC/BMP Laboratory Tests 04/08/19 05:32 Red Blood Count 4.89, Mean Corpuscular Volume 102.7 H, Mean Corpuscular Hemoglobin 31.3, Mean Corpuscular Hemoglobin Concent 30.5 L, Red Cell Distribution Width 15.6 H, Calcium Level 9.7 FSBS Laboratory Tests Test 04/07/19 17:01 04/07/19 20:32 04/08/19 11:47 Range/Units Bedside Glucose (Misc Panel) 100 104 73 70-105 MG/DL Microbiology Microbiology 04/04/19 Stool Occult Blood (STEPH) - Final, Complete Discharge Medications Scheduled Amlodipine Besylate (Amlodipine Besylate) 10 Mg Tab, 5 MG PO DAILY, (Reported) Fluticasone Propion/Salmeterol (Advair Hfa 230-21 Mcg Inhaler) 12 Gm Hfa.aer.ad, 2 PUFF INH BID Take 2 puffs twice a day Furosemide (Furosemide) 40 Mg Tablet, 40 MG PO DAILY, (Reported) Gabapentin (Gabapentin) 100 Mg Cap, 200 MG PO TID, (Reported) Metoprolol Succinate (Metoprolol Succinate) 25 Mg Tab.er.24h, 25 MG PO DAILY, (Reported) Potassium Chloride (Potassium Chloride) 10 Meq Tab.er.prt, 10 MEQ PO DAILY, (Reported) Tiotropium [place] Monohydrate (Spiriva) 18 Mcg Cap.w.dev, 1 INHALATION INH DAILY@08 Take 1 puff daily Scheduled PRN Acetaminophen (Tylenol Extra Strength) 500 Mg Tablet, 1,000 MG PO Q6H PRN for PAIN, (Reported) Albuterol Sulfate (Proair Hfa) 108 Mcg/Act Aer, 2 PUFF INH Q4H PRN for SHORTNESS OF BREATH, (Reported) Ipratropium/Albuterol Sulfate (Iprat-Albut 0.5-3(2.5) mg/3 ml) 3 Ml Ampul.neb, 3 ML IN Q8H PRN for SHORTNESS OF BREATH, (Reported) Allergies Coded Allergies: Penicillins (Verified Allergy, Unknown, 03/28/19) GME ATTESTATION GME ATTESTATION My faculty preceptor for this patient encounter was physically present during the encounter and was fully available. All aspects of the patient interview, examination, medical decision making process, and medical care plan development were reviewed and approved by the faculty preceptor. The faculty preceptor is aware and concurs with the plan as stated in the body of this note and will attest to such by his/her cosignature. ATTENDING NOTE I, Jan Glover, have independently examined this patient and performed my own physical exam, as well as reviewed the documentation and edited where necessary. I have discussed in detail with the resident / student the findings and plan of treatment as documented by the resident / student and edited their note. I agree with their findings and treatment plan and have edited their documentation. I will continue to follow the patient during this hospital stay. Time spent on discharge - 36 minutes JUANIS RUTHERFORD PGY-1 Apr 08, 2019 16:44 JAN GLOEVR MD Apr 08, 2019 16:58
[2019-04-10] MEDS ORDERED: SYMB16INH INH (15:02)
== END 2019-04-08 19:04 | disposition home or self-care (01) | DRG 194 ==
LOC: M ED 00:17 → M ED INP 05:44 → M PCU 07:39 → M ICU 03-31 12:09 → M MSPAV 04-03 10:07
PROVIDERS: ADMIT Internal Medicine; ATTEND Internal Medicine
PROC: 0DJ08ZZ Inspection of Upper Intestinal Tract, Via Natural or Artificial Opening Endoscopic (ICD-10-PCS; principal; 2019-03-30 03:56)
PROC: 06H03DZ Insertion of Intraluminal Device into Inferior Vena Cava, Percutaneous Approach (ICD-10-PCS; 2019-04-02)
DX: I11.0 Hypertensive heart disease with heart failure (principal); J96.21 Acute and chronic respiratory failure with hypoxia; E87.4 Mixed disorder of acid-base balance; K92.0 Hematemesis; J96.22 Acute and chronic respiratory failure with hypercapnia; E11.51 Type 2 diabetes mellitus with diabetic peripheral angiopathy without gangrene; E66.2 Morbid (severe) obesity with alveolar hypoventilation; Z68.41 Body mass index [BMI] 40.0-44.9, adult; J44.1 Chronic obstructive pulmonary disease with (acute) exacerbation; K21.0 Gastro-esophageal reflux disease with esophagitis; G47.33 Obstructive sleep apnea (adult) (pediatric); Z86.711 Personal history of pulmonary embolism; F10.20 Alcohol dependence, uncomplicated; E78.5 Hyperlipidemia, unspecified; M54.5 Low back pain; Z91.14 Patient's other noncompliance with medication regimen; Z79.899 Other long term (current) drug therapy; Z88.0 Allergy status to penicillin; G40.909 Epilepsy, unspecified, not intractable, without status epilepticus; F17.200 Nicotine dependence, unspecified, uncomplicated; I50.31 Acute diastolic (congestive) heart failure

== ENCOUNTER → 2019-04-08 | Outpatient (CLI) | payer MEDICAID ==
[~2019-04-08] MED LIST changes: +ACET-897 PO; +ADVA230A INH; +FURO40TA2 PO; +IPRA0.00 IN; +METO1TAB32 PO; +POTA10TA17 PO; +SYMB16INH INH; +TIOT18INH INH
--- NOTE | 2019-04-15 10:42 | SLEEPCENT ---
DATE OF STUDY: 04/08/2019 ORDERED BY: STEVO Allen Nocturnal polysomnography was performed for evaluation of sleep physiology in this patient with a history of excessive somnolence, snoring and nonrestorative sleep. 6 hours and 54 minutes of data were reviewed. There were 363 minutes of sleep identified. Sleep latency was normal at 10.5 minutes. REM latency was normal at 70 minutes. Sleep architecture showed poor progression initially and significant fragmentation. Improvement in sleep architecture was noted following interventions. Overall sleep efficiency for the study was 88.1%. The patient's electrocardiogram showed sinus rhythm with an average heart rate of 92 beats per minute. EEG showed normal waveforms for awake and sleep. There were 249 respiratory events identified of 10 seconds in duration or greater for an apnea-hypopnea index of 41.2. The events were associated with oxygen desaturations lower than reliably recoverable with oximetry. Having clearly established the presence of obstructive sleep apnea syndrome early in testing, the study was stopped shortly after midnight for the application of pressure therapy. The patient was fit with a [employer] Simplus full-face mask of medium size, 5 cm of water pressure were applied to the circuit and the lights were extinguished. For the remaining portion of the study, pressure titration was performed. Reasonable sleep was established with a CPAP pressure of +5, hypoventilatory oxygen desaturations prompted the addition of supplemental oxygen to the circuit. Best sleep was seen on a CPAP pressure of +5 with 2 liters of oxygen bled through the system. IMPRESSION: Severe obstructive sleep apnea syndrome (G47.33). Apnea-hypopnea index 41.2. RECOMMENDATION: Nightly use of pressure therapy, 15 cm of water with 2 liters of oxygen bled through the circuit. cc: ROSEMARY Philippe
== END ==
LOC: M SLEEP 20:00
PROVIDERS: ATTEND Physician Assistant
DX: G47.33 Obstructive sleep apnea (adult) (pediatric) (principal); R40.0 Somnolence; R06.83 Snoring

== ENCOUNTER → 2019-06-05 | Outpatient (CLI) | payer MEDICAID ==
[2019-06-05 10:46] LABS: BASO % 0.3 % (0.0-1.0); EOS # 0.1 10^3/uL (0.0-0.5); EOS % 0.7 % (0.0-3.0); HEMATOCRIT 53.7 % (42.0-52.0); HEMOGLOBIN 16.2 g/dl (13.5-17.5); LYMPH # 1.1 10^3/uL (1.5-5.0); MEAN CORPUSCULAR HEMOGLOBIN 31.4 pg (27.0-33.0); MEAN CORPUSCULAR HGB CONC 30.2 g/dl (32.0-36.5); MEAN CORPUSCULAR VOLUME 104.1 fl (80.0-96.0); MONO # 0.7 10^3/uL (0.0-0.8); MONO % 9.7 % (0.0-5.0); NEUTROPHILS # 5.4 10^3/uL (1.5-8.5); NEUTROPHILS % 73.7 % (36.0-66.0); PLATELET COUNT, AUTOMATED 228 10^3/uL (150-450); RED BLOOD COUNT 5.16 10^6/uL (4.30-6.10); WHITE BLOOD COUNT 7.3 10^3/uL (4.0-10.0)
[2019-06-05 10:59] LABS: BLOOD UREA NITROGEN 17 MG/DL (7-18); CALCIUM LEVEL 9.8 MG/DL (8.5-10.1); CARBON DIOXIDE LEVEL 36 MEQ/L (21-32); CHLORIDE LEVEL 100 MEQ/L (98-107); CREATININE FOR GFR 1.15 MG/DL (0.70-1.30); GLOMERULAR FILTRATION RATE > 60.0 (>56); GLUCOSE, FASTING 95 MG/DL (70-100); POTASSIUM SERUM 5.3 MEQ/L (3.5-5.1); SODIUM LEVEL 140 MEQ/L (136-145)
== END ==
LOC: M LAB 09:55
PROVIDERS: ATTEND Internal Medicine
DX: D75.89 Other specified diseases of blood and blood-forming organs (principal); E87.5 Hyperkalemia

== ENCOUNTER → 2019-11-12 | Outpatient (CLI) | payer MEDICAID ==
--- NOTE | 2019-11-12 17:28 | REP ---
CT chest without contrast: Low-dose screening exam. History: Nicotine dependence. Comparison chest CT study March 30, 2019 and October 20, 2018. There is a low dose screening exam from September 13, [address] findings: There is a fibro linear density in the right base consistent with discoid atelectasis and/or fibrosis. This is improved from the March 30, 2019 study. Linear fibrosis is seen laterally in the right lower lobe adjacent to the major fissure and there is linear fibrotic change anteriorly in the right upper lobe and superiorly in the right upper lobe. There is a new 4 mm noncalcified pulmonary nodule in the right lower lobe. This projects on page 67 of 116 in series 201 of today's study. It is not visible previously. Study is otherwise unremarkable. Impression: 4 mm nodular density right lower lobe, new since prior study. Lung BIRADS category II findings. Continue annual CT screening. Electronically Signed by Narendra Parada MD 11/12/2019 05:45 P
== END ==
LOC: M RAD 14:55
PROVIDERS: ATTEND Physician Assistant
DX: Z87.891 Personal history of nicotine dependence (principal)

== ENCOUNTER → 2019-12-26 | Outpatient (CLI) | payer MEDICAID ==
--- NOTE | 2019-12-26 14:58 | REPPI ---
REASON: History of COPD. Latest prior for comparison 03/28/2019. There is mild to moderate cardiomegaly. There a right basilar opacity blunting the CP angle representing a change from the prior exam. There is no other significant change in the appearance of the lung valdez. The osseous structures are stable and intact. IMPRESSION: Cardiomegaly and right basilar opacity with effusion/atelectasis/pneumonia. Correlate clinically. Electronically Signed by Arsenio Sandoval DO 12/26/2019 03:31 P
== END ==
LOC: M PLALAB 14:04
PROVIDERS: ATTEND Physician Assistant
DX: J44.9 Chronic obstructive pulmonary disease, unspecified (principal); I51.7 Cardiomegaly; J98.4 Other disorders of lung

== ENCOUNTER → 2020-02-03 | Outpatient (CLI) | payer MEDICAID ==
--- NOTE | 2020-02-10 11:21 | SLEEPCENT ---
DATE OF STUDY: 02/03/2020 ORDERING PROVIDER: MARY Allen Nocturnal polysomnography was performed for the titration of pressure therapy in this patient with severe obstructive sleep apnea syndrome. Apnea-hypopnea index 41.2. For testing, a [employer] Simplus full face mask of medium size was used. 5 cm of water pressure were applied to the circuit, and the lights were extinguished. 8 hours and 27 minutes of data were reviewed. There were 487 minutes of sleep identified. Sleep latency was short at 7.5 minutes. Rapid eye movement (REM) latency was mildly prolonged at 116 minutes. Sleep architecture was good with three REM cycles. Overall sleep efficiency was 96.6%. The electrocardiogram showed a sinus rhythm with an average heart rate of 75 beats per minute. Electroencephalogram (EEG) showed normal waveforms for awake and sleep. Respiratory events persisted prompting an increase in continuous positive airway pressure (CPAP) pressure to 15. Despite optimal CPAP, oxygen desaturations were seen prompting the addition of supplemental oxygen. Very late in the study in REM, the patient experienced obstructive events despite the CPAP pressure and supplemental oxygen, showing desaturations into the 60s. Insufficient time during testing resulted in limitation of further titration. IMPRESSIONS: 1. Obstructive sleep apnea syndrome (G47.33). 2. Persistent hypoxemia. RECOMMENDATIONS: Though an optimal pressure therapy was not achieved during this study, initiation of CPAP at a minimum of 15 cm with supplemental oxygen at 6 liters may be helpful given the severity of the patient's disease and desaturations, referral back to the sleep disorder center for a second night of titration once the patient is accustomed to the device is recommended.
== END ==
LOC: M SLEEP 20:00
PROVIDERS: ATTEND Physician Assistant
DX: G47.33 Obstructive sleep apnea (adult) (pediatric) (principal)

== ENCOUNTER → 2020-12-08 | Outpatient (CLI) | payer MEDICAID ==
[~2020-12-08] MED LIST changes: -AMLO10TA5 PO; +AMLO1TAB25 PO; -LISI-538 PO; +LISI20TA33 PO; +NICO1DIS12 TD; -NICO21DI31 TD
--- NOTE | 2020-12-08 15:10 | REP ---
INDICATION: NICOTINE DEPEND. COMPARISON: Low-dose lung screening CT of the chest dated 11/12/2019. TECHNIQUE: The study is performed without IV contrast. Images are presented at lung windowing only. FINDINGS: On the prior study there was a new 4 mm nodule in the right lower lobe. On the study today this nodule has increased in size and measures 8 mm in diameter. This convert cyst nodule to a category 4 A lung lesion. Additionally there is increased linear stranding along the right lower lobe pleura accompanied by pleural thickening that has significantly increased as well as linear stranding in the right upper lobe parallel to the pleura that has also increased. There is no lung rads category for these linear stranding but is a distinct change from the prior study. Could be postinflammatory or neoplastic. IMPRESSION: BI-RADS category 4 A low-dose lung screening CT of the chest with lesions as discussed above. The probability of malignancy is 5-15%. Follow-up contrast-enhanced chest CT is recommended. Additionally, consider PET scan. <Electronically signed by Leoncio Patterson > 12/08/20 [id number]
== END ==
LOC: M RAD 12:32
PROVIDERS: ATTEND Physician Assistant
DX: Z12.2 Encounter for screening for malignant neoplasm of respiratory organs (principal); F17.218 Nicotine dependence, cigarettes, with other nicotine-induced disorders

== ENCOUNTER → 2021-03-01 | Outpatient (CLI) | payer MEDICAID ==
[~2021-03-01] MED LIST changes: +GABA-283 PO; -GABA-845 PO
--- NOTE | 2021-03-01 15:11 | REP ---
INDICATION: DIAGNOSING SOLITARY PULMONARY NODULE R91.1. COMPARISON: Comparison CT studies of the chest December 08, 2020 and November 12, 2019.. TECHNIQUE: Sixty-three minutes following the intravenous injection of a 11.14 mCi dose of F-18 FDG, three-dimensional PET scintigraphy is acquired from the skull base to the proximal thighs. Triplanar noncontrast CT scanning is acquired through the same anatomic range for attenuation correction, and image registration with scan parameters optimized to minimize radiation exposure to the patient. PET scintigraphy and CT datasets were fused and displayed on a workstation with multiplanar and projection display capability. FINDINGS: Head and neck soft tissues are unremarkable. There is a normal variant skeletal muscle activity in the head and neck. No mass or adenopathy is seen. In the chest, there is no evidence of hilar or mediastinal hypermetabolic activity. No abnormal pulmonary parenchymal hypermetabolic uptake is seen. The 8 mm nodule seen in a peribronchovascular distribution in the right lower lobe on recent chest CT is not clearly visualized on today's PET-CT images. In any event, no abnormal pulmonary parenchymal hypermetabolic uptake is observed. In the abdomen and pelvis, normal hepatic, splenic, gastrointestinal, and genitourinary FDG distribution is observed. No abnormal hypermetabolic uptake is appreciated. No abnormal skeletal uptake is seen. A IVC filter is noted incidentally. IMPRESSION: No abnormal hypermetabolic uptake seen. The recently identified 8 mm right lower lobe nodule is not well seen on accompanying CT images. Recommend continued follow-up. <Electronically signed by Virgil Parada > 03/01/21 [id number]
== END ==
LOC: M PLARAD 07:55
PROVIDERS: ATTEND Physician Assistant
DX: R91.1 Solitary pulmonary nodule (principal)
CPT/HCPCS: 78815; A9552

== ENCOUNTER 2021-04-22 20:10 | Inpatient (IN) | payer MEDICAID ==
[~2021-04-22] VITALS: Ht 167.6 cm; Wt 144.6 kg
[2021-04-22] MEDS ORDERED: methylPREDNISolone 125MG 2ML VIAL IV ONE (20:20)
[2021-04-22 20:35] LABS: BASO # 0.1 10^3/uL (0.0-0.2); BASO % 0.5 % (0.0-1.0); EOS % 0.2 % (0.0-3.0); HEMATOCRIT 62.2 % (42.0-52.0); HEMOGLOBIN 19.1 g/dl (13.5-17.5); LYMPH # 1.9 10^3/uL (1.5-5.0); MEAN CORPUSCULAR HEMOGLOBIN 32.2 pg (27.0-33.0); MEAN CORPUSCULAR HGB CONC 30.7 g/dl (32.0-36.5); MEAN CORPUSCULAR VOLUME 104.9 fl (80.0-96.0); MONO # 1.2 10^3/uL (0.0-0.8); MONO % 9.5 % (2.0-8.0); NEUTROPHILS # 9.4 10^3/uL (1.5-8.5); NEUTROPHILS % 73.8 % (36.0-66.0); PLATELET COUNT, AUTOMATED 228 10^3/uL (150-450); RED BLOOD COUNT 5.93 10^6/uL (4.30-6.10); WHITE BLOOD COUNT 12.7 10^3/uL (4.0-10.0)
[2021-04-22] MEDS: IPRATROPIUM 0.5MG/ALBUTEROL 2.5MG INH SOL UD 3ML (DUONEB) NEB PRN (21:06)
[2021-04-22 21:13] LABS: ALBUMIN 2.9 GM/DL (3.2-5.2); BILIRUBIN,DIRECT 3.3 MG/DL (0.0-0.2); BILIRUBIN,TOTAL 4.8 MG/DL (0.2-1.0); CALCIUM LEVEL 9.3 MG/DL (8.8-10.2); CREATININE FOR GFR 2.51 MG/DL (0.70-1.30); GLOMERULAR FILTRATION RATE 28.1 (>49); MB/CK RELATIVE INDEX 1.33 (< OR =4); POTASSIUM SERUM 6.2 MEQ/L (3.5-5.1); TOTAL PROTEIN 7.1 GM/DL (6.4-8.2); TROPONIN I 0.29 NG/ML (< 0.10)
[2021-04-22] MEDS ORDERED: NS IV ONE (21:50)
[2021-04-22] MEDS ORDERED: LevoFLOXacin IV 750 MG in IV 1 EA IV ONE (21:50)
[2021-04-22] MEDS ORDERED: DEXTROSE 50% 50 ML SYRINGE IV STA (21:51)
[2021-04-22] MEDS ORDERED: HumuLIN R (REGULAR) INSULIN (NovoLIN R) **100U/ML** PER UNIT IV STA (21:51)
[2021-04-22] MEDS ORDERED: CALCIUM GLUCONATE 1,000 MG in D5W MINI-BAG PLUS 100 ML IV ONE (21:55)
[2021-04-22] MEDS ORDERED: SOD POLYSTYRENE SULFONATE SUSP 15 GM/60 ML UD PO ONE (21:55)
[2021-04-22] MEDS ORDERED: ACETAMINOPHEN TAB 650MG DOSE (2X325MG) PO PRN (22:40)
[2021-04-22] MEDS ORDERED: D5W/0.9% SODIUM CHLORIDE 1,000 ML IV SCH (22:40)
[2021-04-22] MEDS ORDERED: MOM 30ML SUSPENSION UDC PO PRN (22:40)
[2021-04-22] MEDS ORDERED: MAALOX 30 ML SUSP *UDC PO PRN (22:40)
[2021-04-22] MEDS ORDERED: ALBUTEROL SULFATE 2.5 MG/0.5 ML INH NEB SOLN NEB PRN (22:40)
--- NOTE | 2021-04-22 23:26 | HPEPDOC ---
[facility] Medical History & Physical Date of Admission Apr 22, 2021 Date of Service: Apr 22, 2021 Primary Care Physician: Héctor Arnold Attending Physician: JESUS PHOENIX MD History and Physical TIME OF SERVICE: 1100PM CHIEF COMPLAINT: shortness of breath SOURCE: ER Attending (the patient was too short of breath to speak and confused to provide any history.) // chart review HISTORY OF PRESENT ILLNESS: Per ER intake notes, Mr Montez, a 61 yr old M, was brought to the hospital by his cousin for evaluation of shortness of breath that begun today. Initially the patient didnt want to come to the hospital but his cousin insisted. Per the patients initial O2 sats were in the 60s therefore he put the patient on BIPAP. According to the patient declined intubation. REVIEW OF SYSTEMS: unable to obtain because the patient was too confused PAST MEDICAL/ SURGICAL HISTORY: COPD, chronic HFpEF (grade1), essential HTN, DLP, seizure disorder, chronic back pain, NIDDM w peripheral neuropathy, LEA/OHS (CPAP 15 cm H20 with 6L O20), GERD, hx of PE (IVC filter placement after GI bleed), hx of non-compliance, debility uses a walker, class 3 obesity, left hand surgery, SOCIAL HISTORY: He smokes and drinks alcohol heavily FAMILY HISTORY: unable to obtain because the patient is confused ALLERGIES: Please see below. HOME MEDICATIONS: Please see below. PHYSICAL EXAMINATION: Vital Signs Date Time Temp Pulse Resp B/P (MAP) Pulse Ox O2 Delivery O2 Flow Rate FiO2 04/22/21 20:11 99.6 120 26 155/74 (101) 64 Room Air 04/22/21 20:44 50 GENERAL APPEARANCE: well nourished & developed / listless HEENT: BIPAP mask in place CARDIOVASCULAR: tachycardic / NMRG LUNGS: BIPAP settings 18/8 FiO2 50% / his ability to speak more than a few words is limited by dyspnea / he intermittently coughing / he is using accessory muscles to breath/ he is having difficulties moving air / air entry is equal bilaterally. ABDOMEN: contour distended/ firm w palpation/ he doesn't grimace w palpation MUSCULOSKELETAL: NCAT INTEGUMENT: +rubor, dalor & calor at epigastrium extending down to hypogastrium PSYCHIATRIC: RASS score -2 / he is arousable w physical stimuli, when he is awake he inconsistently following commands and keeps falling asleep LABORATORY DATA: IMAGING: Chest xray (personal visualization) no acute infiltrate / radiologist's read is pending MICROBIOLOGY: + COVID 19 ASSESSMENT: is a 61 yr old M a hx of COPD, HFpEF, HTN, DLP, seizure disorder, left hand surgery, chronic back pain, NIDDM w peripheral neuropathy, LEA/OHS. GERD, hx of PE w IVC filter placement, debility & obesity who is admitted for metabolic encephalopathy, acute hypoxemic/hypercapneic respiratory failure, sepsis, COVID-19, acute COPD, CARLOS and abdominal wall cellulitis. PLAN: 1 Metabolic encephalopathy Likely 2/2 hypoxemia & hypercapnia Plan; admit to ICU / frequent neurochecks / f/u prolactin to r/o T[place] paresis / f/u ammonia / if his mental status doesnt improve w resolution of the hypoxemia & hypercapnia the day time team may consider CT of the brain / we will keep him NPO bc he lethargic and at risk of choking & aspirating foods/ aspiration precautions 2 Acute BIPAP dependent hypoxemic/hypercapnic respiratory failure 2/2 COVID He also has underlying LAE/OHS Plan: adjusted BIPAP settings after d/w who will see the patient in the morning 3 Sepsis 2/2 COVID & abdominal wall cellulitis He has the following SIRS criteria: HR >90 / WBC >12 / RR > 20 He also has lactic acidosis His qSOFA score is 2 which puts him in the high risk category His NEWS2 Score is 11 points which indicates that he is high risk Plan: trend lactic acid/ Meropeum & Vanc pending MRSA / hold off IVF bc his BP is not low and he is at risk of developing fluid overload /f/u blood cx, UA w culture and sputum culture / rectal Acetaminophen PRN for fever / target MAP at of least 65 to 70 / place doyle to monitor Is and Os with target UOP of at least 0.5 ml/kg/H / f/u FSBS w target serum glucose 140-180 while acutely ill 4 COVID-19 His 4C Mortality score for COVID is 15 points. His risk of in-hospital mortality is a 61.5 to 66.2%. This further justifies the decision to admit him to the ICU. Plan: c/w BIPAP/ continuous pulse ox / contact & air borne precautions / because he is hypoxemic and on BIPAP he qualifies for remdesivir and barcitinib (per d/w ) (toclizumab is currently on back order) / continue to trend labs per current COVID order set / f/u on final chest xray report 5 Acute COPD Likely triggered by COPD and tobacco abuse His BAP-65 Score to predict mortality in acute COPD puts him in the Class V (BAP 3) category. Based on his score he the recommendations are to consider early NIV and ICU admission. His [place] chronic obstructive pulmonary disease risk scare (OCRS) guide to admission vs discharge in COPD exacerbation score is 6 which puts him in the very high risk category and predicts that he has a 47.5% risk of adverse event. Plan: BIPAP / continuous pulse oximetry / aspiration precautions / f/u sputum cx / we are unable to order neb albuterol and ipratropium inhalers q6H (per d/w RT therapist these can be administered with the use of BIPAP because the pressure will push the medications into the patients lungs) / IV solumedrol w IV PPI 6 Hyperkalemia 2/2 CARLOS The hyperkalemia order set was placed by Plan: f/u repeat BMP 7 Acute Chronic HFpEF / essential HTN Plan: f /u Is and Os / daily weights / IV lasix 8 CARLOS Likely related to COVID (approximately 40% of patients with COVID end up with CARLOS) and congestive nephropathy Plan: f/u Ulytes, renal US and BMP 9 Abdominal wall cellulitis Plan: abx as above 10 Lactic acidosis Possibly type B 2/2 hypoxemia Plan: trend lactic acid 11 Elevated troponin Likely 2/2 tachycardia (type 2 NSTEMI). It is also possible that he has developed a COVID related cardiomyopathy Plan:telemetry/ trend trops & f/u Echo 12 Transaminitis 2/2 COVID & possibly shock liver due to sepsis Plan: trend LFTs 13 NIDDM w peripheral neuropathy Plan: f/u FSBS/ SSI/ hypoglycemia protocol / f/u A1C 14 Hx of Alcohol abuse / hx of seizure disorder ? Plan: ativan thiamine and folic acid per CIWA protocol 15 Tobacco abuse Plan: smoking cessation education 16 GERD DVT px w heparin bc of low GFR Dispo: home after at least 2 midnights stay / based on his qSOFA, NEWs2, 4C Mortality score for COVID, OCRS & BAP scores his prognosis is guarded Home Medications Scheduled Amlodipine Besylate (Amlodipine Besylate) 10 Mg Tab, 10 MG PO DAILY Budesonide/Formoterol (Symbicort 160-4.5 Mcg Inhaler) 6 Gm Hfa.aer.ad, 2 PUFF INH BID Carvedilol (Carvedilol) 3.125 Mg Tablet, 3.125 MG PO BID Cyanocobalamin (Vitamin B-12) (Vitamin B-12) 500 Mcg Tablet, 500 MCG PO DAILY Folic Acid (Folic Acid) 1 Mg Tablet, 1 MG PO DAILY Furosemide (Furosemide) 40 Mg Tablet, 40 MG PO DAILY Gabapentin (Gabapentin) 300 Mg Capsule, 300 MG PO TID Tiotropium [place] Monohydrate (Spiriva) 18 Mcg Cap.w.dev, 1 INHALATION INH DAILY Scheduled PRN Albuterol Sulfate (Proair Hfa) 108 Mcg/Act Aer, 2 PUFF INH Q4H PRN for SHORTNESS OF BREATH Ipratropium/Albuterol Sulfate (Iprat-Albut 0.5-3(2.5) mg/3 ml) 3 Ml Ampul.neb, 3 ML IN Q8H PRN for SHORTNESS OF BREATH Allergies Coded Allergies: Penicillins (Verified Allergy, Unknown, 03/28/19) A-FIB/CHADSVASC A-FIB History Current/History of A-Fib/PAF?: No Current PO Anticoag Therapy: No JESUS PHOENIX MD Apr 22, 2021 23:26
[2021-04-22] MEDS ORDERED: FOLI1TAB11 PO (23:47)
[2021-04-22] MEDS ORDERED: TIOT18INH INH (23:47)
[2021-04-22] MEDS ORDERED: VITA500T40 PO (23:47)
[2021-04-22] MEDS ORDERED: CARV3.12 PO (23:47)
[2021-04-22] MEDS ORDERED: GABA-282 PO (23:47)
[2021-04-22] MEDS ORDERED: SYMB16INH INH (23:47)
[2021-04-22] MEDS ORDERED: HOME MED LIST COMPLETE! XX SCH (23:50)
[2021-04-23] VITALS (22 sets, daily range): BP systolic 111–181; BP diastolic 67–102
[2021-04-23 00:01] LABS: INR 1.58; PROTHROMBIN TIME 19.2 SECONDS (12.7-14.5)
[2021-04-23 00:02] LABS: FIBRINOGEN 562 MG/DL (268-480); PARTIAL THROMBOPLASTIN TIME 33.6 SECONDS (25.9-37.0)
[2021-04-23 00:32] LABS: D-DIMER QUANT > 4000 ng/ml (<500)
[2021-04-23 00:34] LABS: ALBUMIN 2.8 GM/DL (3.2-5.2); BILIRUBIN,TOTAL 4.2 MG/DL (0.2-1.0); C REACTIVE PROTEIN QUANTITATIV 17.9 MG/DL (0.00-0.30); CALCIUM LEVEL 8.7 MG/DL (8.8-10.2); CREATININE FOR GFR 2.03 MG/DL (0.70-1.30); GLOMERULAR FILTRATION RATE 35.8 (>49); MAGNESIUM LEVEL 1.8 MG/DL (1.8-2.4); TOTAL PROTEIN 6.6 GM/DL (6.4-8.2)
[2021-04-23] MEDS ORDERED: LORazepam 2 MG/ML VIAL IV PRN ×2 (01:00→01:40)
[2021-04-23] MEDS ORDERED: REMDESIVIR 200 MG in NS 250 ML IV ONE (01:00)
[2021-04-23] MEDS ORDERED: ACETAMINOPHEN 650 MG SUPP PR PRN (01:45)
[2021-04-23] MEDS: ALBUTEROL 90 MCG/ACT 8GM HFA INHALER INH SCH ×4 (02:00→19:21)
[2021-04-23] MEDS ORDERED: IPRATROPIUM 0.5MG/ALBUTEROL 2.5MG INH SOL UD 3ML (DUONEB) NEB SCH (02:00)
[2021-04-23] MEDS: IPRATROPIUM HFA INHALER 12.9 GRAMS (ATROVENT HFA) INH SCH ×4 (02:00→19:21)
[2021-04-23 02:18] LABS: OSMOLALITY URINE 503 MOSM/KG (50-1400)
[2021-04-23 02:43] LABS: POTASSIUM RANDOM URINE 56.1 MEQ/L; SODIUM,RANDOM URINE < 10 MEQ/L
[2021-04-23] MEDS ORDERED: MEROPENEM INJ 1 GM in IV 1 EA IV SCH ×2 (03:00→08:00)
[2021-04-23] MEDS ORDERED: FUROSEMIDE 40MG/4ML VIAL (J1940) IV SCH (03:00)
[2021-04-23] MEDS ORDERED: SODIUM CHLORIDE 0.9% INJ 10 ML SYR IV ONE (03:00)
[2021-04-23 03:27] LABS: PROLACTIN 10.8 NG/ML (2.1-17.7); TROPONIN I 0.22 NG/ML (< 0.10)
[2021-04-23] MEDS ORDERED: hydrALAZINE 20MG/ML 1ML VIAL (J0360 PER 20MG) IV PRN (04:20)
[2021-04-23] MEDS ORDERED: POTASSIUM CHLORIDE INJ 30 MEQ in D5W/0.45% SODIUM CHLORIDE 1,000 ML IV SCH (04:20)
[2021-04-23 04:32] LABS: BASO % 0.3 % (0.0-1.0); EOS # 0.1 10^3/uL (0.0-0.5); EOS % 0.9 % (0.0-3.0); HEMOGLOBIN 18.6 g/dl (13.5-17.5); LYMPH # 0.9 10^3/uL (1.5-5.0); LYMPH % 7.4 % (24.0-44.0); MEAN CORPUSCULAR HEMOGLOBIN 33.6 pg (27.0-33.0); MEAN CORPUSCULAR HGB CONC 32.1 g/dl (32.0-36.5); MEAN CORPUSCULAR VOLUME 104.9 fl (80.0-96.0); MONO # 0.4 10^3/uL (0.0-0.8); NEUTROPHILS # 10.7 10^3/uL (1.5-8.5); NEUTROPHILS % 86.5 % (36.0-66.0); PLATELET COUNT, AUTOMATED 182 10^3/uL (150-450); RED BLOOD COUNT 5.53 10^6/uL (4.30-6.10); WHITE BLOOD COUNT 12.4 10^3/uL (4.0-10.0)
[2021-04-23] MEDS: FUROSEMIDE 40MG/4ML VIAL (J1940) IV SCH ×5 (04:42→20:33)
[2021-04-23] MEDS: methylPREDNISolone 125MG 2ML VIAL IV SCH ×3 (04:42→20:32)
[2021-04-23 04:54] LABS: CALCIUM LEVEL 8.3 MG/DL (8.8-10.2); CREATININE FOR GFR 1.83 MG/DL (0.70-1.30); GLOMERULAR FILTRATION RATE 40.4 (>49); MAGNESIUM LEVEL 1.8 MG/DL (1.8-2.4); POTASSIUM SERUM 5.8 MEQ/L (3.5-5.1)
[2021-04-23] MEDS ORDERED: VANCOMYCIN HCL 1,000 MG, VIAL MATE ADAPTER 1 EACH in NS 250 ML IV ONE ×2 (05:00→06:00)
[2021-04-23 05:22] LABS: HEMOGLOBIN A1c 5.7 %
[2021-04-23] MEDS ORDERED: HEPARIN SOD (PORCINE) 5000UNITS/ML 1ML VIAL/SYRINGE SQ SCH (06:00)
[2021-04-23] MEDS: TIOTROPIUM INHALER/CAPSULE (SPIRIVA) INH SCH (08:00)
--- NOTE | 2021-04-23 08:19 | REP ---
INDICATION: DYSPNEA/COUGH. COMPARISON: Multiple the latest 12/25/2008 TECHNIQUE: Portable FINDINGS: The technique utilized in obtaining the radiograph has magnified the cardiac silhouette and accentuated the interstitial markings. Once again, there is cardiomegaly accentuated by technique. Once again, there are right basilar opacities and right CP angle blunting status quo. There is no significant change in appearance of the lung valdez or imaged osseous structures. IMPRESSION: No significant change <Electronically signed by Arsenio Sandoval > 04/23/21 0815
--- NOTE | 2021-04-23 08:56 | REP ---
INDICATION: CARLOS. COMPARISON: 11/26/2010 TECHNIQUE: Real-time sonographic evaluation of the kidneys is performed. FINDINGS: Kidneys are increased in echotexture diffusely bilaterally, suggesting medical renal disease. There is no hydronephrosis bilaterally. There is a cyst in the region of the right renal pelvis 1.4 cm in diameter. There is a cyst in the upper pole the left kidney 1.4 x 1.7 x 1.5 cm. The right kidney measures 11.0 x 4.7 x 6.4 cm. Left renal dimensions are 13.1 x 6.8 x 6.7 cm. The urinary bladder could not be visualized. IMPRESSION: Increased echotexture of the kidneys without hydronephrosis. There is a cyst in each kidney. A preliminary report was provided by virtual Radiology at the time of the exam. <Electronically signed by Leoncio Zarate > 04/23/21 0827
[2021-04-23] MEDS ORDERED: ASPIRIN 81MG ENTERIC TABLET PO SCH (09:00)
[2021-04-23] MEDS ORDERED: ENOXAPARIN 40MG/0.4ML SYRINGE (J1650 PER 10MG) SC SCH (09:00)
[2021-04-23] MEDS: GABAPENTIN 300 MG CAP PO SCH ×2 (09:00→15:46)
--- NOTE | 2021-04-23 10:18 | ECGEPIP ---
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
[2021-04-23] MEDS: PANTOPRAZOLE 40MG VIAL (C9113 PER 1) IV SCH (10:24)
[2021-04-23] MEDS: THIAMINE 200MG 2ML VIAL IM SCH (10:24)
[2021-04-23] MEDS: FOLIC ACID 1 MG TAB PO SCH (10:25)
[2021-04-23] MEDS: CARVedilol 3.125 MG TAB PO SCH ×2 (10:27→20:33)
[2021-04-23] MEDS ORDERED: HEPARIN SOD (PORCINE) 5000UNITS/ML 1ML VIAL/SYRINGE IV PRN (11:00)
[2021-04-23] MEDS ORDERED: HEPARIN SOD (PORCINE) 5000UNITS/ML 1ML VIAL/SYRINGE IV ONE (11:30)
[2021-04-23] MEDS: HEPARIN DRIP 25,000 UNITS in IV 1 EA IV SCH (11:50)
--- NOTE | 2021-04-23 12:10 | CCN ---
CRITICAL CARE NOTE Critical care time was 55 minutes. This includes all procedures. DATE: 04/23/2021 SUBJECTIVE: The patient is being managed by the Hospitalist service. This consultation is for BIPAP management and review of COVID therapy. I myself did not enter the room. I have taken history from the nursing staff. The patient is awake, will answer questions. He does not want to be disturbed for the most part. He is wearing his BIPAP currently at 20/8, however on my review of his outside records, he is normally on a CPAP of 15 for his obstructive sleep apnea. Therefore I have increased his expiratory pressure to 15. Normally he is on 6 liters bleed in at night. He has severe COPD. He has mental impairment and is unable to fully cooperate with pulmonary function testing. His last FEV-1 was predicted at 21%. It is suspected that he has severe COPD. He did not obtain COVID vaccinations prior to his hospitalization. OBJECTIVE: PHYSICAL EXAMINATION: Again not examined directly by me. VITAL SIGNS: Temperature is 96.8, pulse is 82, respiratory rate is 24, blood pressure is 137/75, oxygen saturation is 93% on 0.60 FiO2 through bi-level non-invasive therapy, currently 20/8. GENERAL APPEARANCE: From the doorway, the patient is laying on is left side. He is arousable. LABORATORY STUDIES: Laboratory evaluation shows white count of 12.4, hemoglobin 18.6 with a hematocrit of 58, platelet count of 182. Troponin is 0.18. Sodium is 136, potassium is 5.8, chloride 102, bicarbonate 29, BUN of 34, creatinine is up to 1.83. D-dimer is greater than 4,000. Fibrinogen is 562, PT is 19.2. IMAGING: Chest x-ray shows minimal increased bilateral infiltrates. IMPRESSION: 1. COVID respiratory illness with hypoxia. I have approved the use of Baricitinib. Due to the fact that the patient is morbidly obese and his renal impairment, he was not put on Lovenox. He was put on low level DVT prophylaxis with Heparin. Given the fact that his D-dimer is higher than 4,000, I would recommend a Heparin drip until this comes down. Given his obesity and decreased mobility, he is at high risk for venous thromboembolic disease. 2. Hypoxia with at history of severe COPD requiring bi-level non-invasive therapy. I have adjusted his bi-level to 20/15. I will order arterial blood gas to insure better ventilation. He is at high risk for requiring intubation, however at this point in time, he is DNR. We will continue to clarify his advanced directives. Overall, poor prognosis.
[2021-04-23 13:37] LABS: ABG BASE EXCESS -2.6 (-2.0-2.0); ABG HCO3 29.4 MEQ/L (22.0-26.0); ABG O2 SATURATION 97.8 % (95.0-99.0); ABG PARTIAL PRESSURE O2 115.4 mmHg (75.0-100.0); ABG STANDARD HCO3 22.3 MEQ/L (22.0-26.0)
[2021-04-23 13:40] LABS: ABG pH (ARTERIAL) 7.161 UNITS (7.350-7.450)
[2021-04-23 13:41] LABS: ABG PARTIAL PRESSURE CO2 84.1 mmHg (35.0-45.0)
[2021-04-23] MEDS: MEROPENEM INJ 1 GM in IV 1 EA IV SCH (14:51)
[2021-04-23] MEDS: VANCOMYCIN HCL 1,000 MG, VIAL MATE ADAPTER 1 EACH in NS 250 ML IV SCH (15:45)
[2021-04-23] MEDS: BARICITINIB 2MG TABLET (OLUMIANT) FOR EUA PO SCH (15:47)
[2021-04-23 16:23] LABS: ABG O2 SATURATION 93.8 % (95.0-99.0)
[2021-04-23 16:25] LABS: ABG BASE EXCESS -0.1 (-2.0-2.0); ABG HCO3 32.1 MEQ/L (22.0-26.0); ABG PARTIAL PRESSURE O2 77.1 mmHg (75.0-100.0); ABG STANDARD HCO3 24.3 MEQ/L (22.0-26.0); ABG TOTAL CO2 34.8 MEQ/L (23.0-31.0)
[2021-04-23 16:26] LABS: ABG PARTIAL PRESSURE CO2 87.5 mmHg (35.0-45.0); ABG pH (ARTERIAL) 7.182 UNITS (7.350-7.450)
[2021-04-23] MEDS ORDERED: LACRILUBE (AKWA TEARS) OPHTH OINT 3.5 GM OU PRN (16:55)
--- NOTE | 2021-04-23 16:57 | CCN ---
CRITICAL CARE NOTE DATE: 04/23/2021 This his the second critical care note of the day. This excludes all procedures. Mr. Montez shows progressive hypercarbia based on arterial blood gas, pH now 7.18, pCO2 in the high 80s despite increased inspiratory pressure, increased tidal volumes, increased backup rate. Unfortunately, the patient is not ventilating well. His oxygen saturation remains adequate. He is occasionally arousable. He did tell the emergency room staff that he was DO NOT RESUSCITATE on presentation. I called the healthcare proxy to discuss if that was truly his desire. The [facility] advance directive living will, however, states that the patient would consider 24 hours of mechanical ventilation. I contacted the healthcare proxy, Harman Ho, who expressed that in no way or fashion would the patient want to be intubated or on mechanical ventilation. He has had this discussion with the patient on multiple occasions. He states that he wants him to be kept comfortable. I have explained that although his CO2 is climbing, there is still a chance he may be successful with bilevel positive airway pressure (BiPAP), and at this point in time we are not converting to comfort measures only, as he does appear comfortable. Therefore, we will continue our efforts but not perform cardiopulmonary resuscitation (CPR) or intubation. Patient is DO NOT RESUSCITATE, DO NOT INTUBATE at this point in time.
--- NOTE | 2021-04-23 18:38 | IPNPDOC ---
Text Note Date of Service The patient was seen on 04/23/21. NOTE Hospitalist Progress Note Subjective: Upon my evaluation of the patient he is lethargic and will not open his eyes, but apparently the nursing staff has noted that he has actually had some improvement in his mentation. He does have some baseline mental impairment. Because of this he does have a healthcare proxy. Upon admission he did indicate that he wanted to be DNR/DNI, but the appropriate paperwork was not in place, therefore he was made full code. A repeat ABG did show worsening respiratory acidosis, and despite changing the settings of NIPPV, it appears that at this time he is continuing to get worse. Pulmonology did discuss the case with his healthcare proxy and they indicated that the patient and he has had this discussion multiple times and that the sky ent definitely would not wish to be intubated or put on mechanical ventilation, therefore he will be switched back to DNR/DNI per the wishes of the patient as communicated by healthcare proxy. Objective: General: Somnolent, he does not respond to my attempts to arouse him HEENT: Head normocephalic, atraumatic. Currently wearing NIPPV. Respiratory: Distant lung sounds, however it appears that he has a very mild end expiratory wheeze, no rhonchi, no rales are appreciable. Cardiovascular: Distant heart sounds likely secondary to body habitus, from what I can tell it appears that he has regular rate and rhythm, with no rubs, gallops, or murmur. Abdomen: Soft, nontender, nondistended, no hepatosplenomegaly appreciated. Bowel sounds present. Erythematous rash present on the inferior aspect of the abdomen. Extremities: 2+ pulses in the radial and dorsalis pedis bilaterally. No evidence of clubbing or cyanosis. Assessment: Metabolic encephalopathy likely secondary to Acute hypoxemic and hypercapnic respiratory failure tertiary to COVID-19 pneumonia. In the setting of underlying obstructive sleep apnea, obesity hypoventilation syndrome, and COPD He may also perhaps have an acute exacerbation of COPD secondary to Covid. Patient also has sepsis secondary to Covid and what appears to be abdominal wall cellulitis. Hyperkalemia likely secondary to Acute kidney injury. Lactic acidosis, likely secondary to hypoxemia and sepsis Elevated troponin, likely secondary to tachycardia/demand ischemia Transaminitis, likely secondary to sepsis Diabetes mellitus type 2 with peripheral neuropathy Alcohol abuse Questionable history of seizure disorder Tobacco abuse GERD DVT prophylaxis with heparin drip Plan: -Continue remdesivir, baricitinib, steroids -Meropenem was ordered every 12 hours, this will be switched to every 8 hours as he does qualify for this dosing. Also will continue vancomycin. -NIPPV is being monitored and adjusted by pulmonology, their input on this case is greatly appreciated. -Although the patient does have sepsis, clinically he appears fluid overloaded, therefore we will continue with diuresis using IV furosemide -Heparin was ordered as a dose consistent with that for DVT prophylaxis, however given that he is obese and in CARLOS with high risk for development of clots, especially in the setting of COVID-19 pneumonia, will switch him over to heparin drip at this time. -Given decreased mentation, will discontinue home medication gabapentin at this time. -Otherwise, we will continue with the remainder of his usual home medications for treatment of his chronic medical conditions including: Albuterol, amlodipine, aspirin, carvedilol, ipratropium inhaler, Protonix, Spiriva. -Pulmonology discussed the patient's wishes with his healthcare proxy, and they were adamant that the patient would insist on being DNR/DNI, therefore CODE STATUS will be updated, and we will continue treating the patient to the best of our ability without intubation or mechanical ventilation. -Prognosis is poor VS,Thelma, I+O VS, Thelma, I+O Laboratory Tests 04/22/21 20:23 04/22/21 23:29 04/23/21 04:06 Vital Signs Date Time Temp Pulse Resp B/P (MAP) Pulse Ox O2 Delivery O2 Flow Rate FiO2 04/23/21 18:07 90 NIPPV (BIPAP/CPAP) 80 04/23/21 18:00 75 19 118/70 (86) 04/23/21 16:00 96.5 I&O- Last 24 Hours up to 6 AM 04/23/21 06:00 Intake Total 3750 ml Output Total 560 ml Balance 3190 ml CHIQUI ENCISO DO Apr 23, 2021 18:37
[2021-04-23] MEDS: LACRILUBE (AKWA TEARS) OPHTH OINT 3.5 GM OU SCH ×2 (20:33→20:44)
[2021-04-24] VITALS (20 sets, daily range): BP systolic 104–145; BP diastolic 53–83
[2021-04-24] MEDS: MEROPENEM INJ 1 GM in IV 1 EA IV SCH ×4 (00:13→23:20)
[2021-04-24] MEDS: FUROSEMIDE 40MG/4ML VIAL (J1940) IV SCH ×6 (00:13→20:59)
[2021-04-24] MEDS: IPRATROPIUM HFA INHALER 12.9 GRAMS (ATROVENT HFA) INH SCH ×4 (00:41→20:41)
[2021-04-24] MEDS: ALBUTEROL 90 MCG/ACT 8GM HFA INHALER INH SCH ×4 (00:41→20:41)
[2021-04-24] MEDS: REMDESIVIR 100 MG in NS 250 ML IV SCH (03:13)
[2021-04-24] MEDS: SODIUM CHLORIDE 0.9% INJ 10 ML SYR IV SCH (04:58)
[2021-04-24] MEDS: methylPREDNISolone 125MG 2ML VIAL IV SCH ×3 (04:58→20:58)
[2021-04-24] MEDS: VANCOMYCIN HCL 1,000 MG, VIAL MATE ADAPTER 1 EACH in NS 250 ML IV SCH (04:59)
[2021-04-24] MEDS: HEPARIN DRIP 25,000 UNITS in IV 1 EA IV SCH ×2 (05:03→23:22)
[2021-04-24 06:38] LABS: INR 1.52; PROTHROMBIN TIME 18.7 SECONDS (12.7-14.5)
[2021-04-24 06:40] LABS: PARTIAL THROMBOPLASTIN TIME 90.4 SECONDS (25.9-37.0)
[2021-04-24 06:55] LABS: ALBUMIN 2.6 GM/DL (3.2-5.2); BILIRUBIN,DIRECT 1.9 MG/DL (0.0-0.2); BILIRUBIN,TOTAL 2.4 MG/DL (0.2-1.0); TROPONIN I 0.06 NG/ML (< 0.10)
[2021-04-24 07:42] LABS: BASO % 0.2 % (0.0-1.0); HEMATOCRIT 57.7 % (42.0-52.0); HEMOGLOBIN 17.5 g/dl (13.5-17.5); LYMPH # 0.6 10^3/uL (1.5-5.0); LYMPH % 5.1 % (24.0-44.0); MEAN CORPUSCULAR HEMOGLOBIN 31.9 pg (27.0-33.0); MEAN CORPUSCULAR HGB CONC 30.3 g/dl (32.0-36.5); MEAN CORPUSCULAR VOLUME 105.3 fl (80.0-96.0); MONO # 0.5 10^3/uL (0.0-0.8); NEUTROPHILS # 11.2 10^3/uL (1.5-8.5); NEUTROPHILS % 89.3 % (36.0-66.0); PLATELET COUNT, AUTOMATED 174 10^3/uL (150-450); RED BLOOD COUNT 5.48 10^6/uL (4.30-6.10); WHITE BLOOD COUNT 12.5 10^3/uL (4.0-10.0)
[2021-04-24 07:46] LABS: CREATININE FOR GFR 1.65 MG/DL (0.70-1.30); GLOMERULAR FILTRATION RATE 45.5 (>49); PHOSPHORUS LEVEL 4.4 MG/DL (2.5-4.9); POTASSIUM SERUM 4.7 MEQ/L (3.5-5.1)
[2021-04-24] MEDS: TIOTROPIUM INHALER/CAPSULE (SPIRIVA) INH SCH (08:00)
[2021-04-24] MEDS: PANTOPRAZOLE 40MG VIAL (C9113 PER 1) IV SCH (08:39)
[2021-04-24] MEDS: THIAMINE 200MG 2ML VIAL IM SCH (08:40)
[2021-04-24] MEDS: FOLIC ACID 1 MG TAB PO SCH (08:41)
[2021-04-24] MEDS: ASPIRIN 81 MG CHEW TABLET PO SCH (08:41)
[2021-04-24] MEDS: CARVedilol 3.125 MG TAB PO SCH ×2 (08:41→20:59)
[2021-04-24] MEDS: LACRILUBE (AKWA TEARS) OPHTH OINT 3.5 GM OU SCH ×4 (08:42→20:59)
[2021-04-24] MEDS: BARICITINIB 2MG TABLET (OLUMIANT) FOR EUA PO SCH (08:48)
--- NOTE | 2021-04-24 17:39 | IPNPDOC ---
Text Note Date of Service The patient was seen on 04/24/21. NOTE Hospitalist Progress Note Subjective: During my evaluation this morning the patient had continued to be lethargic and I was not able to arouse him, although he did seem to be slightly more responsive and that he would wave his hands occasionally when I was trying to shake him awake. Throughout the day though, apparently the patient had become quite agitated, he then started pulling off his NIPPV mask, and was stating that he no longer wanted treatment. In lieu of NIPPV he was started on Vapotherm which the patient seemed to tolerate significantly better, and this has been able to maintain his saturations throughout the day. The patient seems to have calm down, and since he has been off of the NIPPV for a few hours now, I feel that it would be safe and allowable for him to attempt to eat dinner as it does not look like we will need to replace him back on noninvasive ventilation. Nevertheless, he does continue to require very high flow simply to maintain his saturations, and he does desaturate quite quickly when he is not on oxygen supplementation. Objective: General: Somnolent, he does not respond to my attempts to arouse him HEENT: Head normocephalic, atraumatic. Currently wearing NIPPV. Respiratory: Distant lung sounds, I really do not appreciate any wheezes today though. Cardiovascular: Distant heart sounds, likely secondary to body habitus. Abdomen: Soft, nontender, nondistended, no hepatosplenomegaly appreciated. Bowel sounds present. Erythematous rash still present on the inferior aspect of the abdomen, skin is also mildly indurated at the inferior aspect of the abdomen as well. Extremities: 2+ pulses in the radial and dorsalis pedis bilaterally. No evidence of clubbing or cyanosis. Assessment: Metabolic encephalopathy likely secondary to Acute hypoxemic and hypercapnic respiratory failure tertiary to COVID-19 pneumonia. In the setting of underlying obstructive sleep apnea, obesity hypoventilation syndrome, and COPD He may also perhaps have an acute exacerbation of COPD secondary to Covid. Patient also has sepsis secondary to Covid and what appears to be abdominal wall cellulitis. Hyperkalemia likely secondary to Acute kidney injury. Lactic acidosis, likely secondary to hypoxemia and sepsis Elevated troponin, likely secondary to tachycardia/demand ischemia Transaminitis, likely secondary to sepsis Diabetes mellitus type 2 with peripheral neuropathy Alcohol abuse Questionable history of seizure disorder Tobacco abuse GERD DVT prophylaxis with heparin drip Plan: -Continue remdesivir, baricitinib, steroids -Continue meropenem every 8 hours. Also will continue vancomycin. -NIPPV has now been discontinued as the patient was not tolerating wearing the mask. He seems to be maintaining saturations on high flow with Vapotherm, will continue with the same at this time. -Continue diuresis with IV furosemide, urine output continues to be good -Continue heparin drip at this time. -Continue with the remainder of his usual home medications for treatment of his chronic medical conditions including: Albuterol, amlodipine, aspirin, carvedilol, ipratropium inhaler, Protonix, Spiriva. Continue to hold gabapentin -Continue DNR/DNI Code Status. -Although clinically he does appear to be improved today, prognosis is still guarded VS,Vijaye, I+O VS, Fishbone, I+O Laboratory Tests 04/24/21 06:00 04/24/21 06:11 Vital Signs Date Time Temp Pulse Resp B/P (MAP) Pulse Ox O2 Delivery O2 Flow Rate FiO2 04/24/21 16:00 40.0 100 04/24/21 16:00 97.0 67 17 112/62 (79) 95 HVNI-Vapotherm I&O- Last 24 Hours up to 6 AM 04/24/21 06:00 Intake Total 2165 ml Output Total 4650 ml Balance -2485 ml CHIQUI ENCISO DO Apr 24, 2021 17:39
[2021-04-24] MEDS ORDERED: VANCOMYCIN HCL 1,000 MG, VIAL MATE ADAPTER 1 EACH in NS 250 ML IV SCH (18:00)
[2021-04-25] VITALS (12 sets, daily range): BP systolic 102–158; BP diastolic 56–77
[2021-04-25] MEDS: FUROSEMIDE 40MG/4ML VIAL (J1940) IV SCH ×2 (00:07→04:02)
[2021-04-25] MEDS: ALBUTEROL 90 MCG/ACT 8GM HFA INHALER INH SCH ×4 (02:03→20:00)
[2021-04-25] MEDS: IPRATROPIUM HFA INHALER 12.9 GRAMS (ATROVENT HFA) INH SCH ×4 (02:03→20:00)
[2021-04-25] MEDS: REMDESIVIR 100 MG in NS 250 ML IV SCH (02:45)
[2021-04-25] MEDS: methylPREDNISolone 125MG 2ML VIAL IV SCH ×3 (04:02→19:55)
[2021-04-25] MEDS: SODIUM CHLORIDE 0.9% INJ 10 ML SYR IV SCH (04:02)
[2021-04-25 05:22] LABS: HEMATOCRIT 56.7 % (42.0-52.0); HEMOGLOBIN 17.5 g/dl (13.5-17.5); MEAN CORPUSCULAR HEMOGLOBIN 31.8 pg (27.0-33.0); MEAN CORPUSCULAR HGB CONC 30.9 g/dl (32.0-36.5); MEAN CORPUSCULAR VOLUME 103.1 fl (80.0-96.0); PLATELET COUNT, AUTOMATED 151 10^3/uL (150-450); WHITE BLOOD COUNT 8.7 10^3/uL (4.0-10.0)
[2021-04-25 06:43] LABS: ALBUMIN 2.5 GM/DL (3.2-5.2); CALCIUM LEVEL 8.2 MG/DL (8.8-10.2); CREATININE FOR GFR 1.72 MG/DL (0.70-1.30); GLOMERULAR FILTRATION RATE 43.4 (>49); PHOSPHORUS LEVEL 3.3 MG/DL (2.5-4.9); POTASSIUM SERUM 4.2 MEQ/L (3.5-5.1); VANCOMYCIN LEVEL TROUGH 21.8 UG/ML (10.0-20.0)
[2021-04-25] MEDS: MEROPENEM INJ 1 GM in IV 1 EA IV SCH ×3 (07:17→22:17)
[2021-04-25] MEDS: NICOTINE 21MG/24HR 1 EA TRANSDERMAL TD SCH (07:18)
[2021-04-25] MEDS: TIOTROPIUM INHALER/CAPSULE (SPIRIVA) INH SCH (07:44)
[2021-04-25] MEDS: ASPIRIN 81 MG CHEW TABLET PO SCH (08:27)
[2021-04-25] MEDS: FOLIC ACID 1 MG TAB PO SCH (08:27)
[2021-04-25] MEDS: BARICITINIB 2MG TABLET (OLUMIANT) FOR EUA PO SCH (08:28)
[2021-04-25] MEDS: CARVedilol 3.125 MG TAB PO SCH ×2 (08:29→19:58)
[2021-04-25] MEDS: PANTOPRAZOLE 40MG VIAL (C9113 PER 1) IV SCH (08:29)
[2021-04-25] MEDS: LACRILUBE (AKWA TEARS) OPHTH OINT 3.5 GM OU SCH ×4 (08:29→19:58)
[2021-04-25] MEDS: THIAMINE 200MG 2ML VIAL IM SCH (08:29)
[2021-04-25] MEDS ORDERED: FUROSEMIDE 100MG/10ML VIAL (J1940) IV SCH (09:00)
[2021-04-25] MEDS: VANCOMYCIN HCL 1,000 MG, VIAL MATE ADAPTER 1 EACH in NS 250 ML IV SCH (11:59)
[2021-04-25 13:40] LABS: ABG BASE EXCESS 8.1 (-2.0-2.0); ABG HCO3 36.9 MEQ/L (22.0-26.0); ABG O2 SATURATION 88.2 % (95.0-99.0); ABG PARTIAL PRESSURE O2 59.6 mmHg (75.0-100.0); ABG STANDARD HCO3 31.6 MEQ/L (22.0-26.0); ABG TOTAL CO2 38.9 MEQ/L (23.0-31.0); ABG pH (ARTERIAL) 7.363 UNITS (7.350-7.450)
[2021-04-25 13:42] LABS: ABG PARTIAL PRESSURE CO2 66.3 mmHg (35.0-45.0)
[2021-04-25 14:51] LABS: ABG BASE EXCESS 6.4 (-2.0-2.0); ABG HCO3 38.2 MEQ/L (22.0-26.0); ABG O2 SATURATION 96.4 % (95.0-99.0); ABG PARTIAL PRESSURE O2 91.2 mmHg (75.0-100.0); ABG STANDARD HCO3 30.2 MEQ/L (22.0-26.0); ABG TOTAL CO2 40.9 MEQ/L (23.0-31.0)
[2021-04-25 14:53] LABS: ABG PARTIAL PRESSURE CO2 89.1 mmHg (35.0-45.0)
[2021-04-25 16:53] LABS: ABG BASE EXCESS 8.1 (-2.0-2.0); ABG HCO3 39.1 MEQ/L (22.0-26.0); ABG O2 SATURATION 93.3 % (95.0-99.0); ABG PARTIAL PRESSURE O2 71.1 mmHg (75.0-100.0); ABG STANDARD HCO3 31.8 MEQ/L (22.0-26.0); ABG TOTAL CO2 41.7 MEQ/L (23.0-31.0); ABG pH (ARTERIAL) 7.292 UNITS (7.350-7.450)
[2021-04-25 16:54] LABS: ABG PARTIAL PRESSURE CO2 82.9 mmHg (35.0-45.0)
[2021-04-25] MEDS: HEPARIN DRIP 25,000 UNITS in IV 1 EA IV SCH (19:24)
--- NOTE | 2021-04-25 20:49 | IPNPDOC ---
Text Note Date of Service The patient was seen on 04/25/21. NOTE Hospitalist Progress Note Subjective: Today has been a very difficult day. At baseline the patient has intellectual delay, therefore it is difficult to convey to him the gravity of his situation. Throughout the day he was constantly removing the Vapotherm, nasal cannula, or nonrebreather, and as all of these were used in an attempt to be palatable to the patient. Nevertheless, he continues to pull them off approximately every 5 minutes or so, and within seconds he desaturates down into the 50s. In the mid afternoon though, he became more obtunded, likely secondary to noncompliance with wearing oxygen supplementation. Upon becoming obtunded he was placed on CPAP, however, despite this his ABG continued to show worsening of his situation. He then was switched over to BiPAP, on the similar settings that he had been on previously, and another repeat ABG showed that this also was not effective in improving his respiratory acidosis, hypercapnia, and hypoxia. In previous discussion with the family they indicated that it was the patient's wishes that he should not be intubated. According to the advance directives we have on file it appears that the patient's wishes were that he would like to attempt being on a "breathing machine" for 24 hours, and when this was mentioned to the healthcare proxy and family they admitted that this was in fact the patient's wishes at the time that he had signed the paper. We did have multiple long conversations throughout the day today discussing his slow progression in the wrong direction. We also did have the discussion that it was very unlikely that a trial period of intubation for 24 hours is not going to be of benefit, and that in our estimation the patient would likely have to be ventilated for at least 1 week, possibly to while the COVID-19 pneumonia is being treated, and even during this time the likelihood of survival is guarded. Then, if at that time we are able to successfully extubate, he the patient would then have to be very compliant with BiPAP, CPAP, or oxygen supplementation in what ever form may be required thereafter. The family and healthcare proxy agree that none of this is consistent with the patient's wishes, and that attempting a 24-hour period of ventilation is very likely to be futile. And, knowing the patient, they agree that the likelihood of him being compliant with wearing oxygen thereafter is quite low, especially given the fact that he would not do it today or yesterday. Therefore, it could be supposed to that for the past few days we have attempted to put him on a "breathing machine" in the form of BiPAP/NIPPV, and this would in fact honor his wishes. The family now is considering to make him [employer]PER[employer], but there is some difficulty because the healthcare proxy is now mandated by [facility] to be quarantined, therefore he will not be able to come in to say his goodbyes to the patient. For the time being we will continue BiPAP, I will increase with the respiratory rate with the hopes that we might be able to improve ventilation for the time being. For now, the healthcare proxy will attempt to discuss what options are available to him with [facility]. Objective: General: Somnolent, he does not respond to my attempts to arouse him HEENT: Head normocephalic, atraumatic. Currently wearing NIPPV. Respiratory: Distant lung sounds Cardiovascular: Distant heart sounds, likely secondary to body habitus. Abdomen: Soft, nontender, nondistended, no hepatosplenomegaly appreciated. Bowel sounds present. Erythematous rash still present on the inferior aspect of the abdomen, skin is also mildly indurated at the inferior aspect of the abdomen as well. Extremities: 2+ pulses in the radial and dorsalis pedis bilaterally. No evidence of clubbing or cyanosis. Assessment: Metabolic encephalopathy likely secondary to Acute hypoxemic and hypercapnic respiratory failure tertiary to COVID-19 pneumonia. In the setting of underlying obstructive sleep apnea, obesity hypoventilation syndrome, and COPD He may also perhaps have an acute exacerbation of COPD secondary to Covid. Patient also has sepsis secondary to Covid and what appears to be abdominal wall cellulitis. Hyperkalemia likely secondary to Acute kidney injury. Lactic acidosis, likely secondary to hypoxemia and sepsis Elevated troponin, likely secondary to tachycardia/demand ischemia Transaminitis, likely secondary to sepsis Diabetes mellitus type 2 with peripheral neuropathy Alcohol abuse Questionable history of seizure disorder Tobacco abuse GERD DVT prophylaxis with heparin drip Plan: -Continue remdesivir, baricitinib, steroids -Continue meropenem every 8 hours. Also will continue vancomycin. -Will discontinue diuresis at this time. -Continue heparin drip at this time. -Continue ventilatory support as indicated above. -Continue with the remainder of his usual home medications for treatment of his chronic medical conditions including: Albuterol, amlodipine, aspirin, carvedil ol, ipratropium inhaler, Protonix, Spiriva. 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
[2021-04-25] MEDS ORDERED: LORazepam 2 MG/ML VIAL IV STA (21:30)
[2021-04-26] VITALS: BP 131/70
[2021-04-26] MEDS: ALBUTEROL 90 MCG/ACT 8GM HFA INHALER INH SCH ×3 (02:00→14:00)
[2021-04-26] MEDS: IPRATROPIUM HFA INHALER 12.9 GRAMS (ATROVENT HFA) INH SCH ×3 (02:00→14:00)
[2021-04-26] MEDS: REMDESIVIR 100 MG in NS 250 ML IV SCH (02:06)
[2021-04-26] MEDS: SODIUM CHLORIDE 0.9% INJ 10 ML SYR IV SCH (03:26)
[2021-04-26 04:00] VITALS: BP 130/79
[2021-04-26] MEDS: VANCOMYCIN HCL 1,000 MG, VIAL MATE ADAPTER 1 EACH in NS 250 ML IV SCH (04:45)
[2021-04-26] MEDS: methylPREDNISolone 125MG 2ML VIAL IV SCH ×2 (04:45→13:56)
[2021-04-26 05:21] LABS: HEMATOCRIT 57.4 % (42.0-52.0); HEMOGLOBIN 17.5 g/dl (13.5-17.5); MEAN CORPUSCULAR HEMOGLOBIN 31.7 pg (27.0-33.0); MEAN CORPUSCULAR HGB CONC 30.5 g/dl (32.0-36.5); PLATELET COUNT, AUTOMATED 116 10^3/uL (150-450); RED BLOOD COUNT 5.52 10^6/uL (4.30-6.10); WHITE BLOOD COUNT 6.6 10^3/uL (4.0-10.0)
[2021-04-26 05:29] LABS: INR 1.4; PROTHROMBIN TIME 17.6 SECONDS (12.7-14.5)
[2021-04-26 05:31] LABS: PARTIAL THROMBOPLASTIN TIME 70.5 SECONDS (25.9-37.0)
[2021-04-26] MEDS: MEROPENEM INJ 1 GM in IV 1 EA IV SCH (06:11)
[2021-04-26 06:14] LABS: ALBUMIN 2.6 GM/DL (3.2-5.2); BILIRUBIN,DIRECT 1.1 MG/DL (0.0-0.2); BILIRUBIN,TOTAL 1.7 MG/DL (0.2-1.0); CALCIUM LEVEL 8.4 MG/DL (8.8-10.2); CREATININE FOR GFR 1.43 MG/DL (0.70-1.30); GLOMERULAR FILTRATION RATE 53.7 (>49); PHOSPHORUS LEVEL 4.1 MG/DL (2.5-4.9); TOTAL PROTEIN 6.1 GM/DL (6.4-8.2); TROPONIN I 0.02 NG/ML (< 0.10)
[2021-04-26] MEDS: TIOTROPIUM INHALER/CAPSULE (SPIRIVA) INH SCH (08:00)
[2021-04-26] MEDS: PANTOPRAZOLE 40MG VIAL (C9113 PER 1) IV SCH (08:38)
[2021-04-26] MEDS: THIAMINE 200MG 2ML VIAL IM SCH (08:38)
[2021-04-26] MEDS: NICOTINE 21MG/24HR 1 EA TRANSDERMAL TD SCH (08:39)
[2021-04-26] MEDS: LACRILUBE (AKWA TEARS) OPHTH OINT 3.5 GM OU SCH ×3 (08:39→17:00)
[2021-04-26] MEDS: CARVedilol 3.125 MG TAB PO SCH (09:00)
[2021-04-26] MEDS ORDERED: FUROSEMIDE 40 MG TAB PO SCH (09:00)
[2021-04-26] MEDS: FOLIC ACID 1 MG TAB PO SCH (09:00)
[2021-04-26] MEDS: BARICITINIB 2MG TABLET (OLUMIANT) FOR EUA PO SCH (09:00)
[2021-04-26] MEDS: ASPIRIN 81 MG CHEW TABLET PO SCH (09:00)
[2021-04-26 13:00] VITALS: BP 119/79
[2021-04-26 14:56] VITALS: BP 165/95
[2021-04-26] MEDS ORDERED: ATROPINE SULFATE 1% OP SOLN 2 ML BTL SL PRN (15:05)
[2021-04-26] MEDS ORDERED: LORazepam 1 MG TAB PO PRN (15:05)
[2021-04-26] MEDS ORDERED: MORPHINE 2 MG/ML 1ML VIAL (J2270) IV PRN (15:05)
[2021-04-26] MEDS ORDERED: MORPHINE 10MG/0.5ML ORAL CONCENTRATE SOLUTION U/D SL PRN (15:05)
[2021-04-26] MEDS ORDERED: LORazepam 2 MG/ML VIAL As Ordered ONE ×2 (15:14→17:49)
[2021-04-26] MEDS: LORazepam 2 MG/ML VIAL IV PRN ×2 (15:18→18:05)
--- NOTE | 2021-04-26 20:23 | DS.PDOC ---
Discharge Summary General Date of Admission Apr 22, 2021 at 22:38 Date of Discharge 04/26/2021 Discharge Summary ATTENDING AT TIME OF DISCHARGE: Dr. Chiqui Enciso, DO DISCHARGE DIAGNOS(E)S: COVID-19 pneumonia Acute hypoxemic and hypercapnic respiratory failure Metabolic encephalopathy Obstructive sleep apnea Obesity hypoventilation syndrome Acute exacerbation of COPD Hyperkalemia Acute kidney injury Lactic acidosis Sepsis Elevated troponin likely secondary to tachycardia and demand ischemia Transaminitis Diabetes mellitus type 2 with peripheral neuropathy Alcohol abuse Seizure disorder Tobacco abuse GERD HPI & HOSPITAL COURSE: Patient was brought to the hospital for evaluation of shortness of breath that began on the same day as presentation to the emergency department. Upon arrival oxygen saturations were in the 60s and he was obtunded. He was immediately put on BiPAP in the ED, and then later transferred to the ICU. Over the subsequent 4 days the patient went through multiple episodes where he was put on BiPAP to the point where he would recover sufficiently from his obtundation and begin pulling off his mask, nasal cannula, etc. Despite almost constant efforts by the nursing staff to encourage him to keep his oxygen supplementation on, he would continually pull it off. He would then desaturate within seconds and they would have to lawler back to put it back on. After he would do this for some time he would become obtunded, and then he was put back on either CPAP or BiPAP, and perhaps within a few hours or so would regain sufficient consciousness to once again begin pulling off his mask once again. The healthcare proxy, the patient's family, and myself have had multiple conversations over the past 4 days. His wishes were that he would be willing to be put on a "breathing machine" for 24 hours prior to being changed to comfort measures only. We all agree that having put him on noninvasive positive pressure ventilation (NIPPV) multiple times over the past 4 days certainly satisfies the patient's desires, and any attempted to intubate him for only 24 hours would be futile given the fact that he has COVID-19 pneumonia, and 24 hours is insufficient time. Earlier today the family and the healthcare proxy was able to come in and see the patient through the window, all COVID-19 precautions were respected, and they were able to talk to him on the telephone. After this the healthcare proxy and family indicated that they did not want him to suffer any longer, and it was their preference that he be switched over to comfort measures only. It was perhaps only approximately 4 hours or so later when the patient . [place] [facility] [place] Signs/I&Os Vital Signs Date Time Temp Pulse Resp B/P (MAP) Pulse Ox O2 Delivery O2 Flow Rate FiO2 04/26/21 15:05 97 HVNI-Vapotherm 40.0 100 04/26/21 14:56 73 165/95 (118) 04/26/21 12:00 98.0 24 I&O- Last 24 Hours up to 6 AM 04/26/21 06:00 Intake Total 1633 ml Output Total 2525 ml Balance -892 ml Laboratory Data Labs 24H Laboratory Tests 2 04/25/21 23:44: Bedside Glucose (Misc Panel) 180H 04/26/21 05:03: Nucleated Red Blood Cells % (auto) 0.6H, Prothrombin Time 17.6H, Prothromb Time International Ratio 1.40, Activated Partial Thromboplast Time 70.5H, Fibrinogen 377, Anion Gap 3L, Glomerular Filtration Rate 53.7, Calcium Level 8.4L, Phosphorus Level 4.1#, Ferritin 756H, Total Bilirubin 1.7H, Direct Bilirubin 1.1H, Aspartate Amino Transf (AST/SGOT) 379H, Alanine Aminotransferase (ALT/SGPT) 628H, Alkaline Phosphatase 172H, Lactate Dehydrogenase 532H, Total Creatine Kinase 138, Troponin I 0.02#, WU-Bbv-W-Type Natriuretic Peptide 1887H, Total Protein 6.1L, Albumin 2.6L, Albumin/Globulin Ratio 0.7, Procalcitonin 0.15, Vancomycin Level Trough 24.9H 04/26/21 12:58: Bedside Glucose (Misc Panel) 130H CBC/BMP Laboratory Tests 04/26/21 05:03 FSBS Laboratory Tests Test 04/25/21 23:44 04/26/21 12:58 Range/Units Bedside Glucose (Misc Panel) 180 130 80-115 MG/DL Microbiology Microbiology 04/23/21 Gram Stain - Final, Complete 04/23/21 Sputum Culture - Final, Complete Yeast Like Organism 04/22/21 Respiratory Virus Panel (PCR) (STEPH) - Final, Complete SARS-CoV-2 (COVID 19) 04/22/21 Blood Culture - Preliminary, Resulted No Growth after 72 hours. All specime... 04/22/21 Blood Culture - Preliminary, Resulted No Growth after 72 hours. All specime... Discharge Medications Scheduled Amlodipine Besylate (Amlodipine Besylate) 10 Mg Tab, 10 MG PO DAILY, (Reported) Budesonide/Formoterol (Symbicort 160-4.5 Mcg Inhaler) 6 Gm Hfa.aer.ad, 2 PUFF INH BID, (Reported) Carvedilol (Carvedilol) 3.125 Mg Tablet, 3.125 MG PO BID, (Reported) Cyanocobalamin (Vitamin B-12) (Vitamin B-12) 500 Mcg Tablet, 500 MCG PO DAILY, (Reported) Folic Acid (Folic Acid) 1 Mg Tablet, 1 MG PO DAILY, (Reported) Furosemide (Furosemide) 40 Mg Tablet, 40 MG PO DAILY, (Reported) Gabapentin (Gabapentin) 300 Mg Capsule, 300 MG PO TID, (Reported) Tiotropium [place] Monohydrate (Spiriva) 18 Mcg Cap.w.dev, 1 INHALATION INH DAILY, (Reported) Scheduled PRN Albuterol Sulfate (Proair Hfa) 108 Mcg/Act Aer, 2 PUFF INH Q4H PRN for SHORTNESS OF BREATH, (Reported) Ipratropium/Albuterol Sulfate (Iprat-Albut 0.5-3(2.5) mg/3 ml) 3 Ml Ampul.neb, 3 ML IN Q8H PRN for SHORTNESS OF BREATH, (Reported) Allergies Coded Allergies: Penicillins (Verified Allergy, Unknown, 03/28/19) CHIQUI ENCISO DO Apr 26, 2021 20:23
== END 2021-04-26 18:24 | disposition expired | DRG 720 ==
LOC: M ED 20:10 → M ED INP 22:38 → ENRESERV 04-23 01:26 → M ICU 04-23 02:26
PROVIDERS: ADMIT Internal Medicine; ATTEND Neuromusculoskeletal Medicine & OMM
DX: A41.9 Sepsis, unspecified organism (principal); U07.1 COVID-19; J96.01 Acute respiratory failure with hypoxia; K72.00 Acute and subacute hepatic failure without coma; G93.41 Metabolic encephalopathy; I24.8 Other forms of acute ischemic heart disease; Z68.43 Body mass index [BMI] 50.0-59.9, adult; J96.02 Acute respiratory failure with hypercapnia; J12.82 Pneumonia due to coronavirus disease 2019; I50.33 Acute on chronic diastolic (congestive) heart failure; N17.9 Acute kidney failure, unspecified; E87.2 Acidosis; E11.40 Type 2 diabetes mellitus with diabetic neuropathy, unspecified; E11.51 Type 2 diabetes mellitus with diabetic peripheral angiopathy without gangrene; E66.2 Morbid (severe) obesity with alveolar hypoventilation; J44.1 Chronic obstructive pulmonary disease with (acute) exacerbation; J44.0 Chronic obstructive pulmonary disease with (acute) lower respiratory infection; E87.5 Hyperkalemia; L03.311 Cellulitis of abdominal wall; F10.10 Alcohol abuse, uncomplicated; G40.909 Epilepsy, unspecified, not intractable, without status epilepticus; K21.9 Gastro-esophageal reflux disease without esophagitis; Z51.5 Encounter for palliative care; Z66 Do not resuscitate; R65.20 Severe sepsis without septic shock